=== PATIENT | male | born 1965 | race Hispanic/Latino ===

== ENCOUNTER 2020-06-25 17:49 | Inpatient (IN) | payer OTHER ==
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
--- OUTSIDE RECORDS SUMMARY | 2020-06-25 17:52 | XMS REPORT | Continuity of Care Document ---
:1965 Author Organization [facility] t Address [address] [place] [address] Care Team Providers Name Role Phone Unavailable Unavailable Unavailable Problems This patient has no known problems. Allergies, Adverse Reactions, Alerts This patient has no known allergies or adverse reactions. Medications Ordered Filled Start Stop Current Ordering Indication Dosage Frequency Signature Comments Components Source Medication Medication Date Date Medication? Clinician (SIG) Name Name Rebecca Fernandez 2020- No Dhiraj Inject 0.[address] [facility] 02-12 Rai mg/day x 1 [facility] then [facility] 00 :00 1.2 l mg/day. Outpati Max 1.8 ent mg/day Clinics Hydrocortis Hydrocortis 2019- No Dhiraj [address] [facility] one one 02-12 Rai applicatio [facility] :[facility] ent Clinics Ketoconazol Ketoconazol 2020- No Dhiraj [address] [facility] e e 02-12 Rai applicatio [facility] 00 :00 l Out[facility] ent Clinics Stacy Stacy Yes Dhiraj USE ONE [facility] Contour Contour Rai STRIP TO [facility] - Next Test Next Test CHECK Mike lelo GLUCOSE l THREE Outpati TIMES ent DAILY Clinics Lovastatin Lovastatin Yes Dhiraj [address] [facility] Rai with the [facility] - evening [facility] meal l Outpati ent Clinics Losartan Losartan Yes Dhiraj [address] Potassium Potassium Rai Lu s [facility] l [facility] GlipiZIDE GlipiZIDE Yes Dhiraj [address] [facility] Rai 30 minutes [facility] l [facility] MetFORMIN MetFORMIN Yes Dhiraj [address] [facility] HCl ER HCl ER Rai with meal [facility] Procedures This patient has no known procedures. Encounters Start End Encounter Admission Attending Care Care Encounter Source Date/Time Date/Time Type Type Clinicians Facility Department ID 2020-05-17 2020-05-17 Outpatient [facility] [id number] [facility] 2020-02-13 2020-02-13 [facility] [id number] [facility] 09:45[facility]00 09:45:00 [facility] Medicine Outpati ent Clinics 2020-01-12 2020-01-12 [facility] [id number] [facility] 10:13:00 10:13:00 [facility] Medicine Outpati ent Clinics 2019-10-27 2019-10-27 [facility] [id number] [facility] 11:00:00 11:00:00 [facility] Medicine Outpati ent Clinics 2019-10-23 2019-10-23 [facility] [id number] [address] 16:50:00 16:50:00 [facility] Medicine Outpati ent Clinics 2018-02-01 2018-02-01 [facility] [id number] 09:00:00 09:00:00 [facility] Medicine Outpati ent Clinics Results This patient has no known results.
[2020-06-25 18:22] VITALS: BMI 38.4
[2020-06-25] MEDS ORDERED: ONDANSETRON 4 MG/2 ML VIAL IV PRN (19:40)
[2020-06-25] MEDS: INSULIN -REGULAR HUMAN 50 UNIT/0.5 ML ML SQ SCH (21:00)
[2020-06-25] MEDS: NA CHLORIDE 0.9% 1,000 ML IV SCH (22:03)
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
[2020-06-26] MEDS: MORPHINE 2 MG/ML SYR IV PRN ×2 (00:44→09:29)
[2020-06-26 05:12] LABS: Absolute Lymphocytes (CBC) 1.9 K/uL (0.7-4.9); Basophils % 0.3 % (0-1.3); Hematocrit 38.2 % (39.6-49.0); Lymphocytes % 27.5 % (15.3-44.8); MPV 8.2 fL (7.6-11.3); RBC Red Blood Cell Count 4.61 M/uL (4.33-5.43)
[2020-06-26 05:40] LABS: Magnesium 1.8 mg/dL (1.8-2.4); Potassium 4.3 mmol/L (3.5-5.1); Thyroid Stimulating Hormone 2.26 uIU/mL (0.360-3.740)
[2020-06-26] MEDS ORDERED: MAGNESIUM SULFATE 1 gm IVPB 1 GM/100 ML BAG IV ONE (06:37)
[2020-06-26] MEDS: NA CHLORIDE 0.9% 1,000 ML IV SCH ×2 (06:51→16:13)
[2020-06-26] MEDS: INSULIN -REGULAR HUMAN 50 UNIT/0.5 ML ML SQ SCH ×4 (07:30→21:00)
[2020-06-26 10:39] LABS: Urine Appearance CLEAR; Urine Bilirubin NEGATIVE (NEG); Urine Blood NEGATIVE (NEG); Urine Color YELLOW; Urine Glucose TRACE (NEG); Urine Protein 1+ (NEG); Urine Specific Gravity >=1.030 (1.005-1.030)
[2020-06-26 11:20] LABS: Urine Bacteria NONE SEEN /HPF (NONE SEEN); Urine Microscopic Reflex ORDER UMIC; Urine RBC NONE SEEN /HPF (NONE SEEN)
[2020-06-26 11:21] LABS: Urine Mucus 2+ /HPF (NONE SEEN)
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
[2020-06-26] MEDS ORDERED: HYDROCODONE/APAP 7.5/325 MG TAB PO PRN (11:34)
[2020-06-26] MEDS ORDERED: TRAMADOL HCL 50 MG TAB PO PRN (11:34)
[2020-06-26] MEDS: LOSARTAN POTASSIUM 50 MG TABLET PO SCH (16:54)
[2020-06-26] MEDS ORDERED: LOSARTAN POTASSIUM 50 MG TABLET PO SCH (21:00)
[2020-06-26] MEDS ORDERED: HOME MED 1 EA UNK (Glipizide [Glipizide] 10 MG Tablet) PO SCH (21:00)
[2020-06-26] MEDS: METFORMIN HCL 500 MG TAB PO SCH (21:00)
[2020-06-26] MEDS ORDERED: HOME MED 1 EA UNK (Lovastatin [Lovastatin] 40 MG Tablet) PO SCH (21:00)
[2020-06-26] MEDS: ATORVASTATIN 20 MG TAB PO SCH (21:37)
[2020-06-26] MEDS: glipiZIDE 5 MG TAB PO SCH (21:37)
[2020-06-26] MEDS: PIPER/TAZO/NS 3.375gm 3.375 GM/100 ML BAG IVPB SCH (21:41)
[2020-06-27] MEDS: NA CHLORIDE 0.9% 1,000 ML IV SCH ×3 (02:58→20:21)
[2020-06-27] MEDS: PIPER/TAZO/NS 3.375gm 3.375 GM/100 ML BAG IVPB SCH ×3 (05:36→21:43)
[2020-06-27 06:30] LABS: Magnesium 1.8 mg/dL (1.8-2.4); Potassium 3.8 mmol/L (3.5-5.1)
[2020-06-27] MEDS ORDERED: MAGNESIUM SULFATE 1 gm IVPB 1 GM/100 ML BAG IV ONE (06:33)
[2020-06-27] MEDS: INSULIN -REGULAR HUMAN 50 UNIT/0.5 ML ML SQ SCH ×5 (07:30→20:20)
[2020-06-27] MEDS: glipiZIDE 5 MG TAB PO SCH ×2 (08:34→20:09)
[2020-06-27] MEDS: ASPIRIN EC 81 MG TAB PO SCH (08:34)
[2020-06-27] MEDS: FOLIC ACID 1 MG TABLET PO SCH (08:35)
[2020-06-27] MEDS: LOSARTAN POTASSIUM 50 MG TABLET PO SCH ×2 (08:35→20:09)
[2020-06-27] MEDS: METFORMIN HCL 500 MG TAB PO SCH ×2 (08:36→20:10)
[2020-06-27] MEDS: COLLAGENASE 30 GM OINTMENT TOP SCH (08:36)
[2020-06-27] MEDS ORDERED: POTASSIUM CL SA 10 MEQ TAB PO ONE (09:00)
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
[2020-06-27] MEDS: ATORVASTATIN 20 MG TAB PO SCH (20:09)
[2020-06-28 04:17] LABS: Magnesium 1.9 mg/dL (1.8-2.4); Potassium 4.1 mmol/L (3.5-5.1)
[2020-06-28] MEDS: PIPER/TAZO/NS 3.375gm 3.375 GM/100 ML BAG IVPB SCH ×3 (05:29→22:38)
[2020-06-28] MEDS: NA CHLORIDE 0.9% 1,000 ML IV SCH ×3 (05:30→14:10)
[2020-06-28] MEDS: INSULIN -REGULAR HUMAN 50 UNIT/0.5 ML ML SQ SCH ×4 (07:30→21:00)
[2020-06-28] MEDS: METFORMIN HCL 500 MG TAB PO SCH ×2 (08:21→22:31)
[2020-06-28] MEDS: glipiZIDE 5 MG TAB PO SCH ×2 (08:21→22:31)
[2020-06-28] MEDS: FOLIC ACID 1 MG TABLET PO SCH (08:21)
[2020-06-28] MEDS: ASPIRIN EC 81 MG TAB PO SCH (08:21)
[2020-06-28] MEDS: COLLAGENASE 30 GM OINTMENT TOP SCH (08:22)
[2020-06-28] MEDS: LOSARTAN POTASSIUM 50 MG TABLET PO SCH ×2 (08:22→21:07)
[2020-06-28] MEDS ORDERED: AMLODIPINE 5 MG TAB PO SCH (09:00)
--- NOTE | 2020-06-28 16:10 | P.PN ---
Subjective Date of Service: 06/28/20 Patient has been doing clinically much better. Patient's blood pressure is 180/100. Will go ahead and adjust blood pressure medications at this time. Anticipate discharge home in the morning. Review of Systems 10-point ROS is otherwise unremarkable Physical Examination - Vital Signs Temperature: 97.0 F Blood Pressure: 176/101 Pulse: 72 Respirations: 16 Pulse Ox (%): 96 - Physical Exam General: Alert, In no apparent distress, Oriented x3 Respiratory: Clear to auscultation bilaterally, Normal air movement Cardiovascular: Regular rate/rhythm, Normal S1 S2, No murmurs Gastrointestinal: Soft and benign, Non-distended, No tenderness, No rebound, No guarding Musculoskeletal: No clubbing, No swelling, No tenderness Integumentary: Rash(es), Erythema, Warmth Neurological: Sensation intact, Cranial nerves 3-12 intact - Studies Laboratory Data (last 24 hrs) 06/28/20 03:32: Sodium 142, Potassium 4.1, BUN 12, Creatinine 1.07, Glucose 137 H, Magnesium 1.9 Medications List Reviewed: Yes Assessment & Plan - Problems (Diagnosis) (1) Abdominal wall cellulitis Status: Acute (2) Malignant hypertension Status: Acute (3) DM2 (diabetes mellitus, type 2) Status: Chronic Qualifiers: Diabetes mellitus skilled nursing insulin use: unspecified emt intermediate insulin use status Diabetes mellitus complication status: without complication Qualified Code(s): E11.9 - Type 2 diabetes mellitus without complications (4) Fistula of intestine Status: Chronic (5) Hyperlipidemia Status: Chronic Qualifiers: Hyperlipidemia type: unspecified Qualified Code(s): E78.5 - Hyperlipidemia, unspecified (6) Morbid obesity Status: Chronic - Plan Continue with plan of care as mentioned below. Anticipate discharge home tomorrow. 1. Continue with IV antibiotic 2. Continue with local wound care 3. Outpatient Wound care 4. Hep-Lock IV 5. Monitor CBC 6. Strict blood sugar monitoring 7. Pain control 8. GI and DVT prophylaxis Discharge Plan: Home Plan to discharge in: Greater than 2 days - Advance Directives Does patient have a Living Will: No Does patient have a Durable POA for Healthcare: No - Code Status/Comfort Care Code Status Assessed: Yes Code Status: Full Code Critical Care: No Time Spent Managing PTS Care (In Minutes): 35
[2020-06-28] MEDS: HYDRALAZINE HCL 20 MG/ML VIAL IV PRN (16:44)
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
[2020-06-28] MEDS: HYDRALAZINE HCL 10 MG TABLET PO SCH (21:08)
[2020-06-28] MEDS: ATORVASTATIN 20 MG TAB PO SCH (21:08)
[2020-06-28] MEDS: ACETAMINOPHEN 500 MG TAB PO PRN (22:32)
[2020-06-29 01:32] VITALS: O2SAT 96
[2020-06-29] MEDS: HYDRALAZINE HCL 20 MG/ML VIAL IV PRN (03:34)
[2020-06-29 04:17] LABS: Absolute Lymphocytes (CBC) 2.5 K/uL (0.7-4.9); Basophils % 0.4 % (0-1.3); Hematocrit 41.8 % (39.6-49.0); Lymphocytes % 31.4 % (15.3-44.8); MPV 8.5 fL (7.6-11.3); RBC Red Blood Cell Count 5.01 M/uL (4.33-5.43)
[2020-06-29 04:28] LABS: Magnesium 1.8 mg/dL (1.8-2.4); Potassium 3.7 mmol/L (3.5-5.1)
[2020-06-29] MEDS: PIPER/TAZO/NS 3.375gm 3.375 GM/100 ML BAG IVPB SCH (05:06)
[2020-06-29] MEDS: ACETAMINOPHEN 500 MG TAB PO PRN (05:15)
[2020-06-29] MEDS: INSULIN -REGULAR HUMAN 50 UNIT/0.5 ML ML SQ SCH (07:30)
[2020-06-29] MEDS: LOSARTAN POTASSIUM 50 MG TABLET PO SCH (08:31)
[2020-06-29] MEDS: ASPIRIN EC 81 MG TAB PO SCH (08:31)
[2020-06-29] MEDS: glipiZIDE 5 MG TAB PO SCH (08:32)
[2020-06-29] MEDS: METFORMIN HCL 500 MG TAB PO SCH (08:32)
[2020-06-29] MEDS: FOLIC ACID 1 MG TABLET PO SCH (08:32)
[2020-06-29] MEDS: HYDRALAZINE HCL 10 MG TABLET PO SCH (08:32)
[2020-06-29] MEDS: COLLAGENASE 30 GM OINTMENT TOP SCH (08:33)
[2020-06-29] MEDS ORDERED: POTASSIUM CL SA 10 MEQ TAB PO ONE (09:00)
[2020-06-29] MEDS ORDERED: MAGNESIUM SULFATE 1 gm IVPB 1 GM/100 ML BAG IV ONE (09:00)
[2020-06-29] MEDS ORDERED: AMLODIPINE 10 MG TAB PO SCH (09:00)
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
[2020-07-06 14:24] VITALS: BP 176/101; TEMP 97
== END 2020-06-29 10:20 | disposition home or self-care (01) | DRG 603 ==
LOC: 2ND 17:49 → OBSVTOIN 19:14
PROVIDERS: ADMIT Family Medicine; ATTEND Hospitalist
DX: L03.311 Cellulitis of abdominal wall (principal); K63.2 Fistula of intestine; E11.9 Type 2 diabetes mellitus without complications; E78.5 Hyperlipidemia, unspecified; I10 Essential (primary) hypertension; E66.01 Morbid (severe) obesity due to excess calories; Z68.38 Body mass index [BMI] 38.0-38.9, adult; Z87.891 Personal history of nicotine dependence; Z79.84 Long term (current) use of oral hypoglycemic drugs; Z79.899 Other long term (current) drug therapy
CPT/HCPCS: 36415; 80048; 81003; 81015; 82947; 83036; 83735; 84439; 84443; 85025; J0360; J2270; J2543; J3475; J3590; J7030

== ENCOUNTER 2021-09-11 23:40 | Emergency (ER) | payer OTHER ==
--- OUTSIDE RECORDS SUMMARY | 2021-09-11 23:45 | XMS REPORT | Continuity of Care Document ---
:1965 Author Organization [facility] t Address [address] [place] [address] Care Team Providers Name Role Phone BEL RAI Primary Care Physician Unavailable Yesica Rai Attending Clinician Unavailable SUNNY Attending Clinician Unavailable Sean Alfaro MD Attending Clinician Sean ALFARO Attending Clinician Unavailable JEFF ALFARO Attending Clinician Unavailable POOJA Attending Clinician Unavailable Sunny GOULD Attending Clinician SUNNY Admitting Clinician Unavailable JEFF ALFARO Admitting Clinician Unavailable Payers Payer Name Policy Type Policy Number Effective Date Expiration Date S johan CIGNA HMOPOS SELECT [id number] 2020 PRETP 00:00:00 TOTALCARE SNP [id number] MEDICARE HMO-CIGNA MEDICARE PART A \\T\\ [id number] B - MEDICARE CIGNA [facility] [id number] 2020 HMO 00:00:00 Problems Condition Condition Condition Status Onset Resolution Last Treating Co mments Source Name Details Category Date Date Treatment Clinician Date Type 2 Type 2 Disease Active 2020-07 [facility] [place] diabetes diabetes 2-16 Colleg e mellitus, mellitus, 00:00: of without without 00 Medicin long-term long-term e current current use of use of insulin insulin Hypertensi Hypertensi Disease Active 2020-07 [facility] on due to on due to 2-16 Sun ege endocrine endocrine 00:00: of disorder disorder 00 Medici n e Essential Essential Disease Active [facility] hypertensi hypertensi 8-10 Co llege on on 00:00: of 00 Medicin e Dyspnea on Dyspnea on Disease Active [facility] exertion exertion 8-10 Colleg e 00:00: of 00 Medicin e Nonspecifi Nonspecifi Disease Active [facility] c abnormal c abnormal 8-10 Co llege electrocar electrocar 00:00: of diogram diogram 00 Medicin (ECG) (ECG) e (EKG) (EKG) Abnormal Abnormal Disease Active [facility] r stress stress 24 College test test 00:00: of 00 Medicin e 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 [place] hernia hernia 11-11 College without without 00:00: of obstructio obstructio 00 Me dicin n or n or e gangrene gangrene Class 2 Class 2 Disease Active [facility] [place] obesity obesity 11-11 College with body with body 00:00: of mass index mass index 00 Me dicin (BMI) of (BMI) of e 38.0 to 38.0 to 38.9 in 38.9 in adult adult Allergies, Adverse Reactions, Alerts Allergy Allergy Status Severity Reaction(s) Onset Inactive Treating Comm ents Source Name Type Date Date Clinician NO KNOWN Allergy Active [facility] Social History Social Habit Start Date Stop Date Quantity Comments Source Exposure to Not sure [facility] [place] Adriana dunbar SARS-CoV-2 of Medicine (event) Alcohol intake 2021-08-18 2021-08-18 Ex-drinker [facility] [place] Col lege 00:00:00 00:00:00 (finding) of Medicine Tobacco use and 2020-11-11 2020-11-11 Smokeless tobacco Ba [facility] [employer] exposure 00:00:00 00:00:00 non-user of Medicine Sex Ass[birth year] At [birth year] M [facility] [place] Co llege 00:00:00 00:00:00 of Medicine Smoking Status Start Date Stop Date Source Never smoked tobacco [facility] [place] Sun ege of Medicine Medications Ordered Filled Start Stop Current Ordering Indication Dosage Frequency Signature Comments Components Source Medication Medication Date Date Medication? Clinician (SIG) Name Name metformin Yes 2 tablet [facility] (GLUCOPHAGE 2-03 with meal Col lege -XR) 500 MG 12:41: of XR tablet 08 Medicin e Nutritional 2020-07 Yes 1{can} Take 1 Can [facility] [place] Supplements 1-18 by mouth 2 Co llege (CHENG) 00:00: times of PACK 00 daily Medicin (with e meals). With or without meals Nutritional 2020-07 Yes 1{can} Take 1 Can [facility] Supplements 1-18 by mouth 2 Co llege (CHENG) 00:00: times of PACK 00 daily Medicin (with e meals). With or without meals Nutritional 2020-07- No 1{can} Take 1 Can [facility] [place] Supplements 1-18 02-03 by mouth 2 C ollege (CHENG) 00:00: 00:00 times of PACK 00 :00 daily Medicin (with e meals). With or without meals Na 2020- No 177mL Take 177 [facility] Sulfate-K 9-29 11-18 mL by College Sulfate-Mg 00:00: 00:00 mouth See o f Sulf 00 :00 Admin Medicin (SUPREP Instructio e BOWEL PREP ns. Drink KIT) one bottle 17.5-3.13-1 at 6pm the .6 GM/177ML day before SOLN the procedure and drink the second bottle 4 hours before you leave your home for the procedure amoxicillin Yes TAKE 1 [facility] (AMOXIL) 6-14 CAPSULE BY Colle ge 500 mg 00:00: MOUTH of capsule 00 EVERY 6 Medicin HOURS e UNTIL ALL TAKEN amoxicillin Yes TAKE 1 [facility] (AMOXIL) 6-14 CAPSULE BY Colle ge 500 mg 00:00: MOUTH of capsule 00 EVERY 6 Medicin HOURS e UNTIL ALL TAKEN VICTOZA 18 2021-0 Yes INJECT [facility] r MG/3ML SOPN 4-13 0.6MG College 00:00: UNDER THE of 00 SKIN DAILY Medicin FOR ONE e WEEK THEN 1.2MG DAILY DIRECTED (MAX OF 1.8MG ONCE A DAY) VICTOZA 18 Yes INJECT Baylo r MG/3ML SOPN 4-13 0.6MG College 00:00: UNDER THE of 00 SKIN DAILY Medicin FOR ONE e WEEK THEN 1.2MG DAILY DIRECTED (MAX OF 1.8MG ONCE A DAY) VICTOZA 18 2020- No INJECT [facility]l or MG/3ML SOPN 4-13 11-18 0.6MG Colleg e 00:00: 00:00 UNDER THE of 00 :00 SKIN DAILY Medicin FOR ONE e WEEK THEN 1.2MG DAILY DIRECTED (MAX OF 1.8MG ONCE A DAY) glipiZIDE Yes TAKE 1 [facility] (GLUCOTROL) 4-01 TABLET BY Col lege 10 MG 00:00: MOUTH of tablet 00 TWICE Medicin DAILY 30 e MINUTES BEFORE BREAKFAST glipiZIDE Yes TAKE 1 [facility] (GLUCOTROL) 4-01 TABLET BY Col lege 10 MG 00:00: MOUTH of tablet 00 TWICE Medicin DAILY 30 e MINUTES BEFORE BREAKFAST glipiZIDE Yes TAKE 1 [facility] (GLUCOTROL) 4-01 TABLET BY Col lege 10 MG 00:00: MOUTH of tablet 00 TWICE Medicin DAILY 30 e MINUTES BEFORE BREAKFAST glipiZIDE Yes TAKE 1 [facility] [place] (GLUCOTROL) 4-01 TABLET BY Col lege 10 MG 00:00: MOUTH of tablet 00 TWICE Medicin DAILY 30 e MINUTES BEFORE BREAKFAST glipiZIDE Yes TAKE 1 [facility] (GLUCOTROL) 4-01 TABLET BY Col lege 10 MG 00:00: MOUTH of tablet 00 TWICE Medicin DAILY 30 e MINUTES BEFORE BREAKFAST metformin Yes TAKE 2 [facility] (GLUCOPHAGE 3-10 TABLETS BY Co llege -XR) 500 MG 00:00: MOUTH of XR tablet 00 TWICE Medicin DAILY WITH e MEALS metformin Yes TAKE 2 [facility] [place] (GLUCOPHAGE 3-10 TABLETS BY Co llege -XR) 500 MG 00:00: MOUTH of XR tablet 00 TWICE Medicin DAILY WITH e MEALS metformin Yes TAKE 2 [facility] (GLUCOPHAGE 3-10 TABLETS BY Co llege -XR) 500 MG 00:00: MOUTH of XR tablet 00 TWICE Medicin DAILY WITH e MEALS metformin Yes TAKE 2 [facility] (GLUCOPHAGE 3-10 TABLETS BY Co llege -XR) 500 MG 00:00: MOUTH of XR tablet 00 TWICE Medicin DAILY WITH e MEALS metformin 2021- No TAKE 2 [facility] (GLUCOPHAGE 3-10 02-03 TABLETS BY Cris ivory -XR) 500 MG 00:00: 00:00 MOUTH of XR tablet 00 :00 TWICE Medicin DAILY WITH e MEALS losartan Yes TAKE 1 [facility] (COZAAR) 2-13 TABLET BY Colleg e 100 MG 00:00: MOUTH ONCE of tablet 00 DAILY Medicin e losartan Yes TAKE 1 [facility] [place] (COZAAR) 2-13 TABLET BY Colleg e 100 MG 00:00: MOUTH ONCE of tablet 00 DAILY Medicin e losartan Yes TAKE 1 [facility] (COZAAR) 2-13 TABLET BY Colleg e 100 MG 00:00: MOUTH ONCE of tablet 00 DAILY Medicin e losartan Yes TAKE 1 [facility] (COZAAR) 2-13 TABLET BY Colleg e 100 MG 00:00: MOUTH ONCE of tablet 00 DAILY Medicin e losartan Yes TAKE 1 [facility] [place] (COZAAR) 2-13 TABLET BY Colleg e 100 MG 00:00: MOUTH ONCE of tablet 00 DAILY Medicin e lovastatin Yes TAKE 1 [facility] (MEVACOR) 2-12 TABLET BY Colle ge 40 MG 00:00: MOUTH ONCE of tablet 00 DAILY WITH Medicin EVENING e MEAL FOR 90 DAYS lovastatin Yes TAKE 1 [facility] (MEVACOR) 2-12 TABLET BY Colle ge 40 MG 00:00: MOUTH ONCE of tablet 00 DAILY WITH Medicin EVENING e MEAL FOR 90 DAYS lovastatin Yes TAKE 1 [facility] (MEVACOR) 2-12 TABLET BY Colle ge 40 MG 00:00: MOUTH ONCE of tablet 00 DAILY WITH Medicin EVENING e MEAL FOR 90 DAYS lovastatin Yes TAKE 1 [facility] (MEVACOR) 2-12 TABLET BY Colle ge 40 MG 00:00: MOUTH ONCE of tablet 00 DAILY WITH Medicin EVENING e MEAL FOR 90 DAYS lovastatin Yes TAKE 1 [facility] (MEVACOR) 2-12 TABLET BY Shin ge 40 MG 00:00: MOUTH ONCE of tablet 00 DAILY WITH Medicin EVENING e MEAL FOR 90 DAYS Victoza Victoza 2019- No Bel Inject 0.[address] [facility] [facility] 02-12 10-29 Rai mg/day x 1 [facility]00 week then [facility] 00 :00 1.2 l mg/day. Outpati Max 1.8 ent mg/day Clinics Hydrocortis Hydrocortis 2019- No Bel [address] [facility] [facility] one one 02-12 Rai applicatio [facility] 00:[facility] 00:00 n [facility] 00 :00 [facility] Clin[facility] Ketoconazol Ketoconazol 2019- No Bel [address] [facility] e e 02-12 Rai applicatio [facility] - 00:[facility]: 00:00 n [facility] 00 :00 l Outpati ent Clinics Stacy Stacy Yes Bel USE ONE [facility] Contour Contour Rai STRIP TO [facility] s - Next Test Next Test CHECK Mike lelo GLUCOSE l THREE Outpati TIMES ent DAILY Clinics Lovastatin Lovastatin Yes Bel [address] Rai with the [facility] - evening [facility] meal l Outpati ent Clinics Losartan Losartan Yes Bel [address] Potassium Potassium Rai [facility] - [facility] Outpati ent Clinics GlipiZIDE GlipiZIDE Yes Bel [address] [facility] Rai 30 minutes [facility] - before Memoria breakfast l Outpati ent Clinics MetFORMIN MetFORMIN Yes Bel [address] HCl ER HCl ER Rai with meal [facility] Immunizations Ordered Immunization Filled Immunization Date Status Commen ts Source Name Name Moderna SARS-CoV-2 2020-11-02 Completed [facility] Vaccination 00:00:00 of Medicine Moderna SARS-CoV-2 2020-11-02 Completed [facility] Vaccination 00:00:00 of Medicine Moderna SARS-CoV-2 2020-09-29 Completed [facility] Vaccination 00:00:00 of Medicine Moderna SARS-CoV-2 2020-09-29 Completed [facility] Vaccination 00:00:00 of Medicine Vital Signs Vital Name Observation Time Observation Value Comments Source HEIGHT 2021-04-15 14:15:00 175.3 cm WEIGHT 2021-04-15 14:15:00 113.9 kg HEIGHT 2021-04-12 10:44:00 175.3 cm WEIGHT 2021-04-12 10:44:00 113.399 kg Systolic blood 2021-08-18 18:41:00 156 mm[Hg] [facility] pressure Medicine Diastolic blood 2021-08-18 18:41:00 112 mm[Hg] [facility] pressure Medicine Heart rate 2021-08-18 18:41:00 86 /min [facility] [place] [facility]lege of Medicine Body height 2021-08-18 18:41:00 175.3 cm [facility] [place] [facility] of Medicine Body weight 2021-08-18 18:41:00 119.296 kg [facility] [place] C [facility] of Medicine BMI 2021-08-18 18:41:00 38.84 kg/m2 [facility] ollege of Medicine Systolic blood 2021-06-30 16:25:00 150 mm[Hg] [facility] of pressure Medicine Diastolic blood 2021-06-30 16:25:00 96 mm[Hg] [facility] Medicine Heart rate 2021-06-30 16:25:00 75 /min [facility] [place] C [facility]lege of Medicine Body height 2021-06-30 16:25:00 175.3 cm [facility] [place] C [facility] of Medicine Body weight 2021-06-30 16:25:00 119.296 kg [facility] [place] C [facility] of Medicine BMI 2021-06-30 16:25:00 38.84 kg/m2 [facility] [place] C [facility] of Medicine HEIGHT 2021-06-14 10:05:00 175.3 cm WEIGHT 2021-06-14 10:05:00 113.3 kg HEIGHT 2021-06-13 11:42:00 175.3 cm WEIGHT 2021-06-13 11:42:00 113.399 kg HEIGHT 2021-06-14 10:05:00 175.3 cm WEIGHT 2021-06-14 10:05:00 113.3 kg HEIGHT 2021-06-13 11:42:00 175.3 cm WEIGHT 2021-06-13 11:42:00 113.399 kg Systolic blood 2021-06-02 15:05:00 156 mm[Hg] [facility] pressure Medicine Diastolic blood 2021-06-02 15:05:00 102 mm[Hg] [facility] Medicine Heart rate 2021-06-02 15:05:00 80 /min [facility] ollege of Medicine Respiratory rate 2021-06-02 15:05:00 16 /min [facility] Body height 2021-06-02 15:05:00 175.3 cm [facility] [place] [facility]lege of Medicine Body weight 2021-06-02 15:05:00 119.296 kg [facility] [place] C [facility] of Medicine BMI 2021-06-02 15:05:00 38.84 kg/m2 [facility] [place] C [facility] of Medicine HEIGHT 2021-04-15 14:15:00 175.3 cm WEIGHT 2021-04-15 14:15:00 113.9 kg HEIGHT 2021-04-12 10:44:00 175.3 cm WEIGHT 2021-04-12 10:44:00 113.399 kg Systolic blood 2021-01-24 19:43:00 113 mm[Hg] [facility] pressure Medicine Diastolic blood 2021-01-24 19:43:00 81 mm[Hg] [facility] Medicine Heart rate 2021-01-24 19:43:00 86 /min [facility] ollege of Medicine Body temperature 2021-01-24 19:43:00 36.61 [facility] Body height 2021-01-24 19:43:00 175.3 cm [facility] [place] [facility] of Medicine Body weight 2021-01-24 19:43:00 115.577 kg [facility] ollege of Medicine BMI 2021-01-24 19:43:00 37.63 kg/m2 [facility] ollege of Medicine Systolic blood 2021-01-06 16:27:00 123 mm[Hg] [facility] pressure Medicine Diastolic blood 2021-01-06 16:27:00 88 mm[Hg] [facility] pressure Medicine Heart rate 2021-01-06 16:27:00 89 /min [facility] [place] C [facility] of Medicine Body height 2021-01-06 16:27:00 175.3 cm [facility] ollege of Medicine Body weight 2021-01-06 16:27:[facility] 2021-01-06 16:27:00 38.25 [facility] Procedure Date / Time Performed Performing Clinician Nathen dunbar HEMOGLOBIN A1C 2021-06-02 16:17:00 Gabeloretta Grace [facility] Planned Activity Planned Date Details Comments Source Future Scheduled 2021-08-29 Screening for malignant [facility] Test 09:47:48 neoplasm of colon Medicine (procedure) [code = 893121143] Future Scheduled 2021-08-29 Pneumococcal Combined (1 [facility] Test 09:47:48 of 2 - PPSV23) [code = Medic ine Pneumococcal Combined (1 of 2 - PPSV23)] Future Scheduled 2021-08-29 TETANUS SHOT (ADULT) [facility] Test 09:47:48 [code = TETANUS SHOT Medicin e (ADULT)] Future Scheduled 2021-08-29 Diabetic foot examination [facility] 09:47:48 (regime/therapy) [code = Med icine [id number]] Future Scheduled 2021-08-29 ANNUAL DIABETIC [facility] Test 09:47:48 RETINOPATHY SCREENING Medici ne [code = ANNUAL DIABETIC RETINOPATHY SCREENING] Future Scheduled 2021-08-29 Hepatitis C screening [facility] 09:47:48 (procedure) [code = Medicine [id number]] Future Scheduled 2021-08-29 Human immunodeficiency [facility] 09:47:48 virus screening Medicine (procedure) [code = 960243898] Future Scheduled 2021-08-29 ZOSTER VACCINE (1 of 2) [facility] 09:47:48 [code = ZOSTER VACCINE (1 Me dicine of 2)] Future Scheduled 2021-08-29 FLU VACCINE > 6 MONTHS B [facility] Test 09:47:48 [code = FLU VACCINE > 6 Medi cine MONTHS] Future Scheduled 2021-08-29 COVID-19 Vaccine (3 - Ba [facility] 09:47:48 Booster for Moderna Medicine series) [code = COVID-19 Vaccine (3 - Booster for Moderna series)] Future Scheduled 2021-08-29 MEDICARE AWV (Initial) B [facility] Test 09:47:48 [code = MEDICARE AWV Medicin e (Initial)] Future Scheduled 2021-08-29 BMI FOLLOW UP PLAN [code [facility] of Test 09:47:48 = BMI FOLLOW UP PLAN] Medici ne Future Scheduled 2021-06-30 BMI FOLLOW UP PLAN [code [facility] of Test 10:35:03 = BMI FOLLOW UP PLAN] Medici ne Future Scheduled 2021-06-30 Screening for malignant [facility] of Test 10:25:26 neoplasm of colon Medicine (procedure) [code = 090923102] Future Scheduled 2021-06-30 TETANUS SHOT (ADULT) [facility] Test 10:25:26 [code = TETANUS SHOT Medicin e (ADULT)] Future Scheduled 2021-06-30 Diabetic foot examination [facility] Test 10:25:26 (regime/therapy) [code = Med icine [id number]] Future Scheduled 2021-06-30 ANNUAL [facility] 10:25:26 RETINOPATHY SCREENING Medici ne [code = ANNUAL DIABETIC RETINOPATHY SCREENING] Future Scheduled 2021-06-30 Hepatitis C screening [facility] Test 10:25:26 (procedure) [code = Medicine [id number]] Future Scheduled 2021-06-30 Human immunodeficiency B [facility] Test 10:25:26 virus screening Medicine (procedure) [code = 456919228] Future Scheduled 2021-06-30 ZOSTER VACCINE (1 of 2) [facility] Test 10:25:26 [code = ZOSTER VACCINE (1 Me dicine of 2)] Future Scheduled 2021-06-30 FLU VACCINE > 6 MONTHS B [facility] of Test 10:25:26 [code = FLU VACCINE > 6 Medi cine MONTHS] Future Scheduled 2021-06-30 COVID-19 Vaccine (3 - Ba [facility] Test 10:25:26 Booster for Moderna Medicine series) [code = COVID-19 Vaccine (3 - Booster for Moderna series)] Future Scheduled 2021-06-30 MEDICARE AWV (Initial) B [facility] Test 10:25:26 [code = MEDICARE AWV Medicin e (Initial)] Future Scheduled 2021-06-12 BMI FOLLOW UP PLAN [code [facility] of Test 21:06:26 = BMI FOLLOW UP PLAN] Medici ne Future Scheduled 2021-06-12 Screening for malignant [facility] Test 21::26 neoplasm of colon Medicine (procedure) [code = 508126962] Future Scheduled 2021-06-12 TETANUS SHOT (ADULT) [facility] Test :: [code = TETANUS SHOT Medicin e (ADULT)] Future Scheduled 2021-06-12 Diabetic foot examination [facility] :: (regime/therapy) [code = Med icine [id number]] Future Scheduled 2021-06-12 ANNUAL DIABETIC [facility] [place] C olle of Test :: RETINOPATHY SCREENING Medici ne [code = ANNUAL DIABETIC RETINOPATHY SCREENING] Future Scheduled 2021-06-12 Hepatitis C screening [facility] :: (procedure) [code = Medicine [id number]] Future Scheduled 2021-06-12 Human immunodeficiency [facility] :: virus screening Medicine (procedure) [code = 035347102] Future Scheduled 2021-06-12 ZOSTER VACCINE (1 of 2) [facility] :: [code = ZOSTER VACCINE (1 Me dicine of 2)] Future Scheduled 2021-06-12 FLU VACCINE > 6 MONTHS B [facility] Test :: [code = FLU VACCINE > 6 Medi cine MONTHS] Future Scheduled 2021-06-12 COVID-19 Vaccine (3 - Ba [facility] :: Booster for Moderna Medicine series) [code = COVID-19 Vaccine (3 - Booster for Moderna series)] Future Scheduled 2021-06-12 MEDICARE AWV (Initial) [facility] :: [code = MEDICARE AWV Medicin e (Initial)] Future Scheduled 2021-01-25 Screening for malignant [facility] Test 16:48:09 neoplasm of colon Medicine (procedure) [code = 630148314] Future Scheduled 2021-01-25 COVID-19 Vaccine (1) [facility] Test 16:48:09 [code = COVID-19 Vaccine Med icine (1)] Future Scheduled 2021-01-25 TETANUS SHOT (ADULT) [facility] Test 16:48:09 [code = TETANUS SHOT Medicin e (ADULT)] Future Scheduled 2021-01-25 Hepatitis C screening [facility] Test 16:48:09 (procedure) [code = Medicine 054722179] Future Scheduled 2021-01-25 Human immunodeficiency B [facility] of Test 16:48:09 virus screening Medicine (procedure) [code = 089996206] Future Scheduled 2021-01-25 ZOSTER VACCINE (1 of 2) [facility] of Test 16:48:09 [code = ZOSTER VACCINE (1 Me dicine of 2)] Future Scheduled 2021-01-25 MEDICARE AWV (Initial) B [facility] of Test 16:48:09 [code = MEDICARE AWV Medicin e (Initial)] Future Scheduled 2021-01-25 FLU VACCINE > 6 MONTHS B [facility] of Test 16:48:09 [code = FLU VACCINE > 6 Medi cine MONTHS] Future Scheduled 2021-01-25 BMI FOLLOW UP PLAN [code [facility] of Test 16:48:09 = BMI FOLLOW UP PLAN] Medici ne Future Scheduled 2021-01-19 Screening for malignant [facility] Test 14:46:06 neoplasm of colon Medicine (procedure) [code = 385192963] Future Scheduled 2021-01-19 COVID-19 Vaccine (1) [facility] Test 14:46:06 [code = COVID-19 Vaccine Med icine (1)] Future Scheduled 2021-01-19 TETANUS SHOT (ADULT) [facility] of Test 14:46:06 [code = TETANUS SHOT Medicin e (ADULT)] Future Scheduled 2021-01-19 Hepatitis C screening [facility] Test 14:46:06 (procedure) [code = Medicine [id number]] Future Scheduled 2021-01-19 Human immunodeficiency B [facility] of Test 14:46:06 virus screening Medicine (procedure) [code = 746547274] Future Scheduled 2021-01-19 ZOSTER VACCINE (1 of 2) [facility] of Test 14:46:06 [code = ZOSTER VACCINE (1 Me dicine of 2)] Future Scheduled 2021-01-19 MEDICARE IPPE (WELCOME TO [facility] of Test 14:46:06 MEDICARE) [code = Medicine MEDICARE IPPE (WELCOME TO MEDICARE)] Future Scheduled 2021-01-19 FLU VACCINE > 6 MONTHS B [facility] of Test 14:46:06 [code = FLU VACCINE > 6 Medi cine MONTHS] Future Scheduled 2021-01-19 [facility] PLAN [facility] 14[facility]46[facility] = BMI FOLLOW UP PLAN] Medici ne Encounters Start End Encounter Admission Attending Care Care Encounter Source Date/Time Date/Time Type Type Clinicians Facility Department ID 2021-08-17 Outpatient Rai, [facility] 12:[facility]00 [facility] 2021-08-10 Outpatient Rai, [facility] 14:15:45 [facility] [id number] [facility] 2021-08-10 Outpatient Rai, [facility] 14:08:22 Bel [id number] [facility] 2021-08-10 Outpatient Rai, [facility] 14:01:17 Bel [id number] [facility] 2021-08-10 Outpatient Rai, [facility] 13:54:13 Bel [id number] [facility] 2021-08-10 Outpatient Rai, [facility] 13:53:56 Bel [id number] [facility] 2021-08-10 Outpatient Rai, [facility] 13:48:07 Bel [id number] [facility] 2021-08-10 Outpatient Rai, [facility] 13:47:10 Bel [id number] [facility] 2021-08-10 Outpatient Rai, [facility] 13:45:16 Bel [id number] [facility] 2021-08-10 Outpatient Rai, [facility] 13:44:17 Bel [id number] [facility] 2021-08-10 Outpatient Rai, [facility] 13:34:14 Bel [id number] [facility] 2021-08-10 [facility] 12[facility]26[facility]47 [place] [id number] [facility] 2021-08-10 [facility] 11:[facility]27 [place] [id number] [facility] 2021-08-[facility] 11[facility] [place] [id number] [facility] 2021-08-10 [facility] 11:17:32 [place] [id number] [facility] 2021-08-10 [facility] 11:17:26 [place] [id number] [facility] 2021-04-24 Outpatient [facility] Surgery [id number] [facility] 11:15:13 L, KELLI 2021-08-18 2021-08-18 Office Angelina, BCYesica [id number] [facility] [place] 12:30:00 16:32:23 Visit Rock RobertCaitlin AMBULATOR 350.1.13.21 College Y 0.2.7.2.686 of [id number] [facility] 815 e 2021-08-16 2021-08-16 [facility] [id number] [facility] 2021-08-15 2021-08-15 [facility] [id number] [facility] 2021-06-30 2021-06-30 Office ANGELINA, BCM 1.2.840.114 [id number] [facility] [place] 10:16:32 13:03:36 Visit ROCK AMBULATOR 350.1.13.21 College Y 0.2.7.2.686 of [id number] [facility] 815 e 2021-06-14 2021-06-20 Inpatient EL ANGELINA, [facility] Surgery [id number] [facility] 09:25:00 14:19:00 ROCK 2021-06-13 2021-06-13 Outpatient EL [facility] [id number] [facility] 12:03:32 23:59:00 2021-06-10 2021-06-10 Outpatient [facility] [id number] [facility] 00:00:00 23:59:00 2021-06-02 2021-06-02 Office Angelina, CHRISS 1.2.840.114 [id number] [facility] [place] 09:15:00 14:00:14 Visit Rock Estrada AMBULATOR 350.1.13.21 College Y 0.2.7.2.686 [facility] [id number] [facility] 815 e 2021-05-12 2021-05-12 [facility] [id number] [facility] 2021-04-28 2021-04-28 Outpatient EL [facility] [id number] [facility] 00:00:00 00:00:00 2021-04-13 2021-04-13 Outpatient EL [facility] [id number] [facility] 00:00:00 00:00:00 2021-04-12 2021-04-12 Outpatient EL [facility] [id number] [facility] 00:00:00 00:00:00 2021-04-12 2021-04-12 [facility] [id number] 2021-03-15 2021-03-15 [facility] [id number] [facility] 2021-03-03 2021-03-03 Outpatient [facility] [id number] [facility] [place] 09:46:55 14:23:55 Adriana e of Medicin e 2021-02-22 2021-02-22 Outpatient CHRISS PATTON [id number] [facility] [place] 09:56:07 12:40:53 KEN Wright e of Medicin e 2021-02-21 2021-02-21 Outpatient [facility] [id number] [facility] 2021-02-16 2021-02-16 [facility] [id number] [facility] 2021-02-15 2021-02-15 Outpatient [facility] [id number] [facility] 2021-02-09 2021-02-09 [facility] [id number] [facility] 2021-01-24 2021-01-[address] [facility] 1.2.840.114 [id number] [facility] [place] 14:40:11 15:28:54 Visit edelmira Kellipaul Sanchez 350.1.13.21 College 0.2.7.2.686 of [id number] [facility] temi 510 e 2021-01-20 2021-01-20 Outpatient EL [facility] [id number] [facility] 00:00:00 00:00:00 2021-01-06 2021-01-06 Office CHRISS ALFARO 1.2.840.114 [id number] [facility] [place] 11:18:00 13:02:56 Visit ROCK VARGAS 350.1.13.21 College Y 0.2.7.2.686 of [id number] [facility] temi 815 e 2020-12-14 2020-12-14 Outpatient [facility] [id number] [facility] 2020-11-16 2020-11-16 Outpatient [facility] [id number] [facility] 2020-11-11 2020-11-11 Outpatient CHRISS ALFARO [facility] [id number] [facility] [place] 09:29:36 15:00:44 ROCK dunbar of Medicin e 2020-08-17 2020-08-17 Outpatient [facility] [id number] [facility] 2020-08-17 2020-08-17 Outpatient [facility] [id number] [facility] 2020-07-07 2020-07-07 Outpatient [facility] [id number] [facility] 2020-07-05 2020-07-05 Outpatient [facility] [id number] [facility] 2020-06-25 2020-06-25 Outpatient [facility] [id number] [facility] 2020-05-17 2020-05-17 Outpatient [facility] [id number] [facility] 2020-02-13 2020-02-13 [facility] [id number] 09:45:00 09:45:00 [place] [employer] [facility] Medicine l Medicine Outpati ent Clinics 2020-01-12 2020-01-12 [facility] [id number] 10:13:00 10:13:00 t [place] [facility] [address] [facility] Medicine l Medicine Outpati ent Clinics 2019-10-27 2019-10-27 [facility] [id number] 11:00:00 11:00:00 [place] [employer] [facility] [address] [facility] Medicine l Medicine Outpati ent Clinics 2019-10-23 2019-10-23 [facility] [id number] 16:50:00 16:50:00 t [place] [employer] [address] [facility] [address] [facility] Medicine l Medicine Outpati ent Clinics 2018-02-01 2018-02-01 [facility] [id number] 09:00:00 09:00:00 t [facility] [employer] [facility] Medicine Outpati ent Clinics Results Test Description Test Time Test Comments Results Result [facility] Comments TISSUE EXAM 2021-06-22 Surgical Pathology 10:59:33 Report Case: [id number] Authorizing Provider: Rock Alfaro MD Collected: 06/14/2021 06:14 PM Ordering Location: [facility] PERIOPERATIVE Received: 06/15/2021 09:56 AM SERVICES Pathologist: Eldon Sneed MD Specimen: Soft Tissue, Other, 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 PART A ILEOCOLIC ANASTOMOSIS AND FISTULA, RESECTION:ENTEROCUTANE OUS FISTULA WITH SUBEPITHELIAL FIBROSIS.ILEOCOLONIC ANASTOMOSIS SITE IDENTIFIED.NEGATIVE FOR DYSPLASIA OR INVASIVE CARCINOMA.SURGICAL MARGINS VIABLE. Signing Pathologist Direct Phone Line: [phone] ally signed by Eldon Sneed MD on 06/22/2021 at 10:59 [id number] anastomosis with fistulaIleocolic anastomosis with fistulaA. Received in formalin labeled with the patient's name, MRN and "soft tissue, other" and consists of an ileocolic side to side anastomosis site, with both the large and small bowel with surgical margins and opposing blind pouches. The ileum measures 6 cm in length and 2.5 cm in diameter, with up to 6 cm attached adipose tissue. The colon measures 11.5 cm in length and 3 cm in diameter, with up to 3.5 cm attached adipose tissue. The serosal surfaces are omer-pink, smooth. Opening reveals anastomosis line measuring 5.5 cm in length and located 2.5 cm from the small bowel surgical margin, and 3 cm from the colon surgical margin. The ileum mucosa is omer-pink to omer-brown, with focal thinning and loss of folding measuring 2.5 x 1.5 cm, located 2.5 cm from the surgical margin, and 1 cm from the anastomosis site. The wall thickness for the ileum ranges 0.1 to 0.3 cm. The wall thickness of the colon is 0.4 cm. The remainder of the mucosa for the ileum and colon are omer-pink, smooth, with normal folding. No discrete lesions are identified. Fish Filleter sections are submitted. Also in the container is abdominal wall with attached omer-pink skin (24 x 6 x 5 cm). Skin is remarkable for focal disruption measuring 2 x 1.2 cm, 1 cm from the closest skin margin. The opposing side of the skin is omer-brown, smooth. Sectioning reveals clear suture with surrounding area of necrosis measuring 2 cm in greatest dimension, 0.7 cm from closest skin, 1.2 cm from deep resection margin. There is also another area of necrosis measuring 2.5 cm in greatest dimension, 1.1 cm from deep resection margin and 3.4 cm from skin. The necrotic areas are arbitrarily designated as 1 and 2 respectively. the remainder of the cut surfaces are omer-pink to omer-white. No discrete lesions are identified Section code:A1: Ileum mucosa remarkable for thinning and loss of foldingA2: Ileum EndopouchA3 ileum mucosa, 3 cm from surgical margin, 3.5 cm from anastomosis siteA4: Anastomosis siteA5: colon endpouch pouchA6: Colon mucosa centimeters from the margin 1.5 cm from anastomosis siteA7: Colon mucosa, 6 cm from marginA8: Abdominal wall skin defect A9: necrotic area 1A10: necrotic area 2A11: Colon margin, margin inked blue A12: Ileum margin , margin inked black Martha WHITE Student performedBaK[facility], Department of Pathology, [address] [place] [address], [facility], [facility] of [facility]ology, [address] [place] [address], [facility], Department of Pathology, [address] [place] [address], POCT-GLUCOSE METER 2021-06-20 12:01:05 Test Item Value Reference Range Interpretation Comme nts POC-GLUCOSE METER ([employer]) 192 mg/dL 70-110 H : TESTED AT [address] (test code = 1538) [facility], [id number]: Human Services Case Manager/Techni adeola ID = [id number] for Luli Snowden POCT-GLUCOSE [id number] 07:41:10 Test Item Value Reference Range Interpretation Comments POC-GLUCOSE METER 146 mg/dL 70-110 H : TESTED [place] [address] ([employer]) (test code = PATRICK Brown [facility], 1538) [address]: Human Services Case Manager/Techni adeola ID = [id number] for Yaya Hightower [id number] 05:06:24 Test Item Value Reference Range Interpretation Comments MAGNESIUM (BEAKER) (test code = 1.7 mg/dL 1.6-2.6 627) Human Services Case Manager ID - LEAH [id number] 05:06:24 Test Item Value Reference Range Interpretation Comments PHOSPHORUS (BEAKER) (test code = 3.7 mg/dL 2.3-4.7 604) Human Services Case Manager ID - LEAH MBASIC METABOLIC [id number] 05:06:23 Test Item Value Reference Range Interpretation Comments SODIUM (BEAKER) 142 meq/L 136-145 (test code = 381) POTASSIUM (BEAKER) 3.3 meq/L 3.5-5.1 L (test code = 379) CHLORIDE (BEAKER) 109 meq/L 98-107 H (test code = 382) CO2 (BEAKER) (test 24 meq/L 22-29 code = 355) BLOOD UREA NITROGEN 8 mg/dL 7-21 (BEAKER) (test code = 354) CREATININE (BEAKER) 0.97 mg/dL 0.57-1.25 (test code = 358) GLUCOSE RANDOM 155 mg/dL 70-105 H (BEAKER) (test code = 652) CALCIUM (BEAKER) 8.8 mg/dL 8.4-10.2 (test code = 697) EGFR (BEAKER) (test 80 mL/min/1.73 ESTIMA EKATERINA GFR IS code = 1092) sq m NOT ACCURATE CREATININE CLEARANCE IN PREDICTING GLOMERULAR FILTRATION RATE . ESTIMATED GFR I S NOT APPLICABLE FOR DIALYSIS PATIEN TS. Human Services Case Manager ID - LEAH MCBC W/PLT COUNT & AUTO [id number] 04:40:06 Test Item Value Reference Range Interpretation Comments WHITE BLOOD CELL COUNT (BEAKER) 7.3 K/ L 3.5-10.5 (test code = 775) RED BLOOD CELL COUNT (BEAKER) 3.76 M/ L 4.63-6.08 L (test code = 761) HEMOGLOBIN (BEAKER) (test code = 10.3 GM/DL 13.7-17.5 L 410) HEMATOCRIT (BEAKER) (test code = 32.3 % 40.1-51.0 L 411) MEAN CORPUSCULAR VOLUME (BEAKER) 85.9 fL 79.0-92.2 (test code = 753) MEAN CORPUSCULAR HEMOGLOBIN 27.4 pg 25.7-32.2 (BEAKER) (test code = 751) MEAN CORPUSCULAR HEMOGLOBIN CONC 31.9 GM/DL 32.3-36.5 L (BEAKER) (test code = 752) RED CELL DISTRIBUTION WIDTH 13.1 % 11.6-14.4 (BEAKER) (test code = 412) PLATELET COUNT (BEAKER) (test 260 K/CU MM 150-450 code = 756) MEAN PLATELET VOLUME (BEAKER) 10.5 fL 9.4-12.4 (test code = 754) NUCLEATED RED BLOOD CELLS 0 /100 WBC 0-0 (BEAKER) (test code = 413) NEUTROPHILS RELATIVE PERCENT 70 % (BEAKER) (test code = 429) LYMPHOCYTES RELATIVE PERCENT 21 % (BEAKER) (test code = 430) MONOCYTES RELATIVE PERCENT 5 % (BEAKER) (test code = 431) EOSINOPHILS RELATIVE PERCENT 4 % (BEAKER) (test code = 432) BASOPHILS RELATIVE PERCENT 0 % (BEAKER) (test code = 437) NEUTROPHILS ABSOLUTE COUNT 5.09 K/ L 1.78-5.38 (BEAKER) (test code = 670) LYMPHOCYTES ABSOLUTE COUNT 1.51 K/ L 1.32-3.57 (BEAKER) (test code = 414) MONOCYTES ABSOLUTE COUNT (BEAKER) 0.37 K/ L 0.30-0.82 (test code = 415) EOSINOPHILS ABSOLUTE COUNT 0.26 K/ L 0.04-0.54 (BEAKER) (test code = 416) BASOPHILS ABSOLUTE COUNT (BEAKER) 0.01 K/ L 0.01-0.08 (test code = 417) IMMATURE GRANULOCYTES-RELATIVE 0 % 0-1 PERCENT (BEAKER) (test code = 2801) POCT-GLUCOSE [id number] 21:15:05 Test Item Value Reference Range Interpretation Comments POC-GLUCOSE METER 168 mg/dL 70-110 H : TESTED Aime Jordin [facility] 6720 (BEAKER) (test code = [place], 1538) [address]: Human Services Case Manager/Techni adeola ID = [id number] for SAUNDRA BOSWELLSAVITA PAK POCT-GLUCOSE [id number] 16:58:14 Test Item Value Reference Range Interpretation Comments POC-GLUCOSE METER 121 mg/dL 70-110 H : TESTED A T [facility] 6720 (BEAKER) (test code = [facility], 1538) 09[address]: Human Services Case Manager/Techni adeola ID = [id number] for ADDIS JESUSABEL POCT-GLUCOSE [id number] 12:40:25 Test Item Value Reference Range Interpretation Comments POC-GLUCOSE METER 190 mg/dL 70-110 H : TESTED A T [facility] 6720 (BEAKER) (test code = [facility], 1538) 158[address]: Human Services Case Manager/Techni adeola ID = [id number] for Lanre Suazo POCT-GLUCOSE [id number] 10:13:27 Test Item Value Reference Range Interpretation Comments POC-GLUCOSE METER 177 mg/dL 70-110 H : TESTED A T [facility] 6720 (BEAKER) (test code = [facility], 1538) [address]: Human Services Case Manager/Techni adeola ID = [id number] for Lanre Suazo [id number] 04:01:22 Test Item Value Reference Range Interpretation Comments PHOSPHORUS (BEAKER) (test code = 3.2 mg/dL 2.3-4.7 604) Human Services Case Manager ID - DBBASIC METABOLIC [id number] 04:01:21 Test Item Value Reference Range Interpretation Comments SODIUM (BEAKER) 140 meq/L 136-145 (test code = 381) POTASSIUM (BEAKER) 3.2 meq/L 3.5-5.1 L (test code = 379) CHLORIDE (BEAKER) 108 meq/L 98-107 H (test code = 382) CO2 (BEAKER) (test 22 meq/L 22-29 code = 355) BLOOD UREA NITROGEN 9 mg/dL 7-21 (BEAKER) (test code = 354) CREATININE (BEAKER) 1.11 mg/dL 0.57-1.25 (test code = 358) GLUCOSE RANDOM 159 mg/dL 70-105 H (BEAKER) (test code = 652) CALCIUM (BEAKER) 8.7 mg/dL 8.4-10.2 (test code = 697) EGFR (BEAKER) (test 69 mL/min/1.73 ESTIMA EKATERINA GFR IS code = 1092) sq m NOT ACCURATE CREATININE CLEARANCE IN PREDICTING GLOMERULAR FILTRATION RATE . ESTIMATED GFR I S NOT APPLICABLE FOR DIALYSIS PATIEN TS. Human Services Case Manager ID - [id number] 04:01:21 Test Item Value Reference Range Interpretation Comments MAGNESIUM (BEAKER) (test code = 1.8 mg/dL 1.6-2.6 627) Human Services Case Manager ID - DBCBC W/PLT COUNT & AUTO [id number] 03:40:45 Test Item Value Reference Range Interpretation Comments WHITE BLOOD CELL COUNT (BEAKER) 8.3 K/ L 3.5-10.5 (test code = 775) RED BLOOD CELL COUNT (BEAKER) 3.76 M/ L 4.63-6.08 L (test code = 761) HEMOGLOBIN (BEAKER) (test code = 10.4 GM/DL 13.7-17.5 L 410) HEMATOCRIT (BEAKER) (test code = 32.6 % 40.1-51.0 L 411) MEAN CORPUSCULAR VOLUME (BEAKER) 86.7 fL 79.0-92.2 (test code = 753) MEAN CORPUSCULAR HEMOGLOBIN 27.7 pg 25.7-32.2 (BEAKER) (test code = 751) MEAN CORPUSCULAR HEMOGLOBIN CONC 31.9 GM/DL 32.3-36.5 L (BEAKER) (test code = 752) RED CELL DISTRIBUTION WIDTH 13.2 % 11.6-14.4 (BEAKER) (test code = 412) PLATELET COUNT (BEAKER) (test 240 K/CU MM 150-450 code = 756) MEAN PLATELET VOLUME (BEAKER) 10.3 fL 9.4-12.4 (test code = 754) NUCLEATED RED BLOOD CELLS 0 /100 WBC 0-0 (BEAKER) (test code = 413) NEUTROPHILS RELATIVE PERCENT 70 % (BEAKER) (test code = 429) LYMPHOCYTES RELATIVE PERCENT 20 % (BEAKER) (test code = 430) MONOCYTES RELATIVE PERCENT 5 % (BEAKER) (test code = 431) EOSINOPHILS RELATIVE PERCENT 5 % (BEAKER) (test code = 432) BASOPHILS RELATIVE PERCENT 0 % (BEAKER) (test code = 437) NEUTROPHILS ABSOLUTE COUNT 5.80 K/ L 1.78-5.38 H (BEAKER) (test code = 670) LYMPHOCYTES ABSOLUTE COUNT 1.63 K/ L 1.32-3.57 (BEAKER) (test code = 414) MONOCYTES ABSOLUTE COUNT (BEAKER) 0.39 K/ L 0.30-0.82 (test code = 415) EOSINOPHILS ABSOLUTE COUNT 0.45 K/ L 0.04-0.54 (BEAKER) (test code = 416) BASOPHILS ABSOLUTE COUNT (BEAKER) 0.03 K/ L 0.01-0.08 (test code = 417) IMMATURE GRANULOCYTES-RELATIVE 0 % 0-1 PERCENT (BEAKER) (test code = 2801) POCT-GLUCOSE [id number] 21:23:17 Test Item Value Reference Range Interpretation Comments POC-GLUCOSE METER 149 mg/dL 70-110 H : TESTED A T [facility] 6720 (BEAKER) (test code = [facility], 1538) 48[address]: Human Services Case Manager/Techni adeola ID = [id number] for Or Jorge ramosella POCT-GLUCOSE [id number] 16:28:43 Test Item Value Reference Range Interpretation Comments POC-GLUCOSE METER 178 mg/dL 70-110 H : TESTED A T [facility] 6720 (BEAKER) (test code = [facility], 1538) 37[address]: Human Services Case Manager/Techni aedola ID = [id number] for Da vis, Yao POCT-GLUCOSE [id number] 11:51:12 Test Item Value Reference Range Interpretation Comments POC-GLUCOSE METER 242 mg/dL 70-110 H : TESTED A T [facility] 6720 (BEAKER) (test code = [facility], 1538) 39356: Human Services Case Manager/Techni adeola ID = [id number] for RA MOS, KRISTI POCT-GLUCOSE [id number] 07:29:20 Test Item Value Reference Range Interpretation Comments POC-GLUCOSE METER 189 mg/dL 70-110 H : TESTED A T [facility] 6720 (BEAKER) (test code = [facility], 1538) 01350: Human Services Case Manager/Techni adeola ID = [id number] for RA MOS, KRISTI [id number] 04:54:20 Test Item Value Reference Range Interpretation Comments PHOSPHORUS (BEAKER) (test code = 2.1 mg/dL 2.3-4.7 L 604) Human Services Case Manager ID - ADMINBASIC METABOLIC [id number] 04:54:19 Test Item Value Reference Range Interpretation Comments SODIUM (BEAKER) 142 meq/L 136-145 (test code = 381) POTASSIUM (BEAKER) 3.3 meq/L 3.5-5.1 L (test code = 379) CHLORIDE (BEAKER) 112 meq/L 98-107 H (test code = 382) CO2 (BEAKER) (test 23 meq/L 22-29 code = 355) BLOOD UREA NITROGEN 11 mg/dL 7-21 (BEAKER) (test code = 354) CREATININE (BEAKER) 1.05 mg/dL 0.57-1.25 (test code = 358) GLUCOSE RANDOM 246 mg/dL 70-105 H (BEAKER) (test code = 652) CALCIUM (BEAKER) 8.3 mg/dL 8.4-10.2 L (test code = 697) EGFR (BEAKER) (test 73 mL/min/1.73 ESTIMA EKATERINA GFR IS code = 1092) sq m NOT ACCURATE CREATININE CLEARANCE IN PREDICTING GLOMERULAR FILTRATION RATE . ESTIMATED GFR I S NOT APPLICABLE FOR DIALYSIS PATIEN TS. Human Services Case Manager ID - [id number] 04:54:19 Test Item Value Reference Range Interpretation Comments MAGNESIUM (BEAKER) (test code = 1.6 mg/dL 1.6-2.6 627) Human Services Case Manager ID - ADMINCBC W/PLT COUNT & AUTO [id number] 04:29:04 Test Item Value Reference Range Interpretation Comments WHITE BLOOD CELL COUNT (BEAKER) 9.0 K/ L 3.5-10.5 (test code = 775) RED BLOOD CELL COUNT (BEAKER) 3.49 M/ L 4.63-6.08 L (test code = 761) HEMOGLOBIN (BEAKER) (test code = 9.8 GM/DL 13.7-17.5 L 410) HEMATOCRIT (BEAKER) (test code = 30.6 % 40.1-51.0 L 411) MEAN CORPUSCULAR VOLUME (BEAKER) 87.7 fL 79.0-92.2 (test code = 753) MEAN CORPUSCULAR HEMOGLOBIN 28.1 pg 25.7-32.2 (BEAKER) (test code = 751) MEAN CORPUSCULAR HEMOGLOBIN CONC 32.0 GM/DL 32.3-36.5 L (BEAKER) (test code = 752) RED CELL DISTRIBUTION WIDTH 13.3 % 11.6-14.4 (BEAKER) (test code = 412) PLATELET COUNT (BEAKER) (test 232 K/CU MM 150-450 code = 756) MEAN PLATELET VOLUME (BEAKER) 10.6 fL 9.4-12.4 (test code = 754) NUCLEATED RED BLOOD CELLS 0 /100 WBC 0-0 (BEAKER) (test code = 413) NEUTROPHILS RELATIVE PERCENT 74 % (BEAKER) (test code = 429) LYMPHOCYTES RELATIVE PERCENT 17 % (BEAKER) (test code = 430) MONOCYTES RELATIVE PERCENT 4 % (BEAKER) (test code = 431) EOSINOPHILS RELATIVE PERCENT 5 % (BEAKER) (test code = 432) BASOPHILS RELATIVE PERCENT 0 % (BEAKER) (test code = 437) NEUTROPHILS ABSOLUTE COUNT 6.61 K/ L 1.78-5.38 H (BEAKER) (test code = 670) LYMPHOCYTES ABSOLUTE COUNT 1.51 K/ L 1.32-3.57 (BEAKER) (test code = 414) MONOCYTES ABSOLUTE COUNT (BEAKER) 0.39 K/ L 0.30-0.82 (test code = 415) EOSINOPHILS ABSOLUTE COUNT 0.40 K/ L 0.04-0.54 (BEAKER) (test code = 416) BASOPHILS ABSOLUTE COUNT (BEAKER) 0.02 K/ L 0.01-0.08 (test code = 417) IMMATURE GRANULOCYTES-RELATIVE 1 % 0-1 PERCENT (BEAKER) (test code = 2801) POCT-GLUCOSE [id number] 21:16:56 Test Item Value Reference Range Interpretation Comments POC-GLUCOSE METER 182 mg/dL 70-110 H : TESTED A T [facility] 6720 (BEAKER) (test code = [facility], 153) 34298: Human Services Case Manager/Techni adeola ID = [id number] for Anant Miguel POCT-GLUCOSE [id number] 16:46:30 Test Item Value Reference Range Interpretation Comments POC-GLUCOSE METER 182 mg/dL 70-110 H : TESTED A T [facility] 6720 (BEAKER) (test code = [facility], 1538) 27302: Human Services Case Manager/Techni adeola ID = [id number] for Uvaldo Estes POCT-GLUCOSE [id number] 11:39:19 Test Item Value Reference Range Interpretation Comments POC-GLUCOSE METER 241 mg/dL 70-110 H : TESTED A T [facility] 6720 (BEAKER) (test code = [facility] [place], 1538) 02755: Human Services Case Manager/Techni adeola ID = [id number] for Uvaldo Estes POCT-GLUCOSE [id number] 06:36:57 Test Item Value Reference Range Interpretation Comments POC-GLUCOSE METER 211 mg/dL 70-110 H : TESTED A T [facility] 6720 (BEAKER) (test code = [facility], 1538) 19923: Human Services Case Manager/Techni adeola ID = [id number] for Tomy Arias [id number] 06:33:57 Test Item Value Reference Range Interpretation Comments PHOSPHORUS (BEAKER) (test code = 1.7 mg/dL 2.3-4.7 L 604) Human Services Case Manager ID - AILIN GBASIC METABOLIC [id number] 06:33:56 Test Item Value Reference Range Interpretation Comments SODIUM (BEAKER) 145 meq/L 136-145 (test code = 381) POTASSIUM (BEAKER) 3.9 meq/L 3.5-5.1 (test code = 379) CHLORIDE (BEAKER) 113 meq/L 98-107 H (test code = 382) CO2 (BEAKER) (test 23 meq/L 22-29 code = 355) BLOOD UREA NITROGEN 12 mg/dL 7-21 (BEAKER) (test code = 354) CREATININE (BEAKER) 1.20 mg/dL 0.57-1.25 (test code = 358) GLUCOSE RANDOM 222 mg/dL 70-105 H (BEAKER) (test code = 652) CALCIUM (BEAKER) 8.8 mg/dL 8.4-10.2 (test code = 697) EGFR (BEAKER) (test 63 mL/min/1.73 ESTIMA EKATERINA GFR IS code = 1092) sq m NOT ACCURATE CREATININE CLEARANCE IN PREDICTING GLOMERULAR FILTRATION RATE . ESTIMATED GFR I S NOT APPLICABLE FOR DIALYSIS PATIEN TS. Human Services Case Manager ID - AILIN [id number] 06:33:56 Test Item Value Reference Range Interpretation Comments MAGNESIUM (BEAKER) (test code = 1.9 mg/dL 1.6-2.6 627) Human Services Case Manager ID - AILIN GCBC W/PLT COUNT & AUTO [id number] 06:06:37 Test Item Value Reference Range Interpretation Comments WHITE BLOOD CELL COUNT (BEAKER) 12.6 K/ L 3.5-10.5 H (test code = 775) RED BLOOD CELL COUNT (BEAKER) 3.86 M/ L 4.63-6.08 L (test code = 761) HEMOGLOBIN (BEAKER) (test code = 10.8 GM/DL 13.7-17.5 L 410) HEMATOCRIT (BEAKER) (test code = 34.1 % 40.1-51.0 L 411) MEAN CORPUSCULAR VOLUME (BEAKER) 88.3 fL 79.0-92.2 (test code = 753) MEAN CORPUSCULAR HEMOGLOBIN 28.0 pg 25.7-32.2 (BEAKER) (test code = 751) MEAN CORPUSCULAR HEMOGLOBIN CONC 31.7 GM/DL 32.3-36.5 L (BEAKER) (test code = 752) RED CELL DISTRIBUTION WIDTH 13.4 % 11.6-14.4 (BEAKER) (test code = 412) PLATELET COUNT (BEAKER) (test 234 K/CU MM 150-450 code = 756) MEAN PLATELET VOLUME (BEAKER) 10.8 fL 9.4-12.4 (test code = 754) NUCLEATED RED BLOOD CELLS 0 /100 WBC 0-0 (BEAKER) (test code = 413) NEUTROPHILS RELATIVE PERCENT 84 % (BEAKER) (test code = 429) LYMPHOCYTES RELATIVE PERCENT 11 % (BEAKER) (test code = 430) MONOCYTES RELATIVE PERCENT 4 % (BEAKER) (test code = 431) EOSINOPHILS RELATIVE PERCENT 1 % (BEAKER) (test code = 432) BASOPHILS RELATIVE PERCENT 0 % (BEAKER) (test code = 437) NEUTROPHILS ABSOLUTE COUNT 10.64 K/ L 1.78-5.38 H (BEAKER) (test code = 670) LYMPHOCYTES ABSOLUTE COUNT 1.32 K/ L 1.32-3.57 (BEAKER) (test code = 414) MONOCYTES ABSOLUTE COUNT (BEAKER) 0.45 K/ L 0.30-0.82 (test code = 415) EOSINOPHILS ABSOLUTE COUNT 0.10 K/ L 0.04-0.54 (BEAKER) (test code = 416) BASOPHILS ABSOLUTE COUNT (BEAKER) 0.03 K/ L 0.01-0.08 (test code = 417) IMMATURE GRANULOCYTES-RELATIVE 1 % 0-1 PERCENT ([facility]) (test code = 2801) VANCOMYCIN LEVEL, [id number] 00:19:08 Test Item Value Reference Range Interpretation Comments VANCOMYCIN TROUGH ([facility]) (test 13.6 ug/mL 10.0-20.0 code = 522) Human Services Case Manager ID - DBPOCT-GLUCOSE [id number] 23:01:21 Test Item Value Reference Range Interpretation Comments POC-GLUCOSE METER 200 mg/dL 70-110 H : TESTED A T [facility] 6720 ([facility]) (test code = [facility], 1538) [address]: Human Services Case Manager/Techni adeola ID = [id number] for Tomy Arias POCT-GLUCOSE [id number] 18:25:14 Test Item Value Reference Range Interpretation Comments POC-GLUCOSE METER 218 mg/dL 70-110 H : [facility]) (test code = [facility], 1538) [address]: Human Services Case Manager/Techni adeola ID = [id number] for Wi lliams, Areiona POCT-GLUCOSE [id number] 11:30:08 Test Item Value Reference Range Interpretation Comments POC-GLUCOSE METER 203 mg/dL 70-110 H : TESTED A T [facility] ([facility]) (test code = [facility], 1538) [address]: Human Services Case Manager/Techni adeola ID = [id number] for Wi lliams, Areiona POCT-GLUCOSE [id number] 06:17:10 Test Item Value Reference Range Interpretation Comments POC-GLUCOSE METER 233 mg/dL 70-110 H : Notified RN/MD: ([facility]) (test code = [facility], [address]: Human Services Case Manager/Techni adeola ID = [id number] for [place], Logan CBC W/PLT COUNT & AUTO [id number] 05:50:17 Test Item Value Reference Range Interpretation Comments WHITE BLOOD CELL COUNT ([facility]) 14.4 K/ L 3.5-10.5 H (test code = 775) RED BLOOD CELL COUNT (BEAKER) 4.08 M/ L 4.63-6.08 L (test code = 761) HEMOGLOBIN (BEAKER) (test code = 11.3 GM/DL 13.7-17.5 L 410) HEMATOCRIT (BEAKER) (test code = 35.9 % 40.1-51.0 L 411) MEAN CORPUSCULAR VOLUME (BEAKER) 88.0 fL 79.0-92.2 (test code = 753) MEAN CORPUSCULAR HEMOGLOBIN 27.7 pg 25.7-32.2 (BEAKER) (test code = 751) MEAN CORPUSCULAR HEMOGLOBIN CONC 31.5 GM/DL 32.3-36.5 L (BEAKER) (test code = 752) RED CELL DISTRIBUTION WIDTH 13.6 % 11.6-14.4 (BEAKER) (test code = 412) PLATELET COUNT (BEAKER) (test 226 K/CU MM 150-450 code = 756) MEAN PLATELET VOLUME (BEAKER) 10.5 fL 9.4-12.4 (test code = 754) NUCLEATED RED BLOOD CELLS 0 /100 WBC 0-0 (BEAKER) (test code = 413) NEUTROPHILS RELATIVE PERCENT 87 % (BEAKER) (test code = 429) LYMPHOCYTES RELATIVE PERCENT 8 % (BEAKER) (test code = 430) MONOCYTES RELATIVE PERCENT 4 % (BEAKER) (test code = 431) EOSINOPHILS RELATIVE PERCENT 0 % (BEAKER) (test code = 432) BASOPHILS RELATIVE PERCENT 0 % (BEAKER) (test code = 437) NEUTROPHILS ABSOLUTE COUNT 12.49 K/ L 1.78-5.38 H (BEAKER) (test code = 670) LYMPHOCYTES ABSOLUTE COUNT 1.11 K/ L 1.32-3.57 L (BEAKER) (test code = 414) MONOCYTES ABSOLUTE COUNT (BEAKER) 0.61 K/ L 0.30-0.82 (test code = 415) EOSINOPHILS ABSOLUTE COUNT 0.01 K/ L 0.04-0.54 L (BEAKER) (test code = 416) BASOPHILS ABSOLUTE COUNT (BEAKER) 0.03 K/ L 0.01-0.08 (test code = 417) IMMATURE GRANULOCYTES-RELATIVE 1 % 0-1 PERCENT (BEAKER) (test code = 2801) [id number] 05:31:22 Test Item Value Reference Range Interpretation Comments PHOSPHORUS (BEAKER) (test code = 1.9 mg/dL 2.3-4.7 L 604) Human Services Case Manager ID - LEAH MBASIC METABOLIC [id number] 05:31:21 Test Item Value Reference Range Interpretation Comments SODIUM (BEAKER) 143 meq/L 136-145 (test code = 381) POTASSIUM (BEAKER) 3.9 meq/L 3.5-5.1 (test code = 379) CHLORIDE (BEAKER) 114 meq/L 98-107 H (test code = 382) CO2 (BEAKER) (test 20 meq/L 22-29 L code = 355) BLOOD UREA NITROGEN 13 mg/dL 7-21 (BEAKER) (test code = 354) CREATININE (BEAKER) 1.23 mg/dL 0.57-1.25 (test code = 358) GLUCOSE RANDOM 234 mg/dL 70-105 H (BEAKER) (test code = 652) CALCIUM (BEAKER) 8.3 mg/dL 8.4-10.2 L (test code = 697) EGFR (BEAKER) (test 61 mL/min/1.73 ESTIMA EKATERINA GFR IS code = 1092) sq m NOT ACCURATE CREATININE CLEARANCE IN PREDICTING GLOMERULAR FILTRATION RATE . ESTIMATED GFR I S NOT APPLICABLE FOR DIALYSIS PATIEN TS. Human Services Case Manager ID - LEAH [id number] 05:31:21 Test Item Value Reference Range Interpretation Comments MAGNESIUM (BEAKER) (test code = 1.5 mg/dL 1.6-2.6 L 627) Human Services Case Manager ID - LEAH MPOCT-GLUCOSE [id number] 00:25:48 Test Item Value Reference Range Interpretation Comments POC-GLUCOSE METER 213 mg/dL 70-110 H : Notified RN/MD: ([facility]) (test code = TESTED AT [facility] 6720 1538) [facility], [address]: Human Services Case Manager/Techni adeola ID = [id number] for Logan Doty POCT-GLUCOSE [id number] 18:27:24 Test Item Value Reference Range Interpretation Comments POC-GLUCOSE METER 203 mg/dL 70-110 H : TESTED A T [facility] 6720 ([facility]) (test code = [facility], 1538) [address]: Human Services Case Manager/Techni adeola ID = [id number] for Yaya Hightower (CELLAVISION MANUAL DIFF)2021-06-15 08:45:11 Test Item Value Reference Range Interpretation Comments NEUTROPHILS - REL 84 % ([facility])(BEAKER) (test code = 2816) LYMPHOCYTES - REL 6 % ([facility])(BEAKER) (test code = 2817) MONOCYTES - REL 3 % ([facility])(BEAKER) (test code = 2818) METAMYELOCYTES - REL 1 % 0-0 H (CELLAVISION)(BEAKER) (test code = 2821) BANDS - REL ([facility])(BEAKER) 6 % 0-10 (test code = 2826) NEUTROPHILS - ABS 15.29 K/ul 1.78-5.38 H (CELLAVISION)(BEAKER) (test code = 2830) LYMPHOCYTES - ABS 1.09 K/ul 1.32-3.57 L (CELLAVISION)(BEAKER) (test code = 2831) MONOCYTES - ABS 0.55 K/uL 0.30-0.82 (CELLAVISION)(BEAKER) (test code = 2832) METAMYELOCYTES - ABS 0.18 K/uL 0.00-0.00 H (CELLAVISION)(BEAKER) (test code = 2836) BANDS - ABS ([facility])(BEAKER) 1.09 K/uL 0.00-0.80 H (test code = 2840) TOTAL COUNTED (BEAKER) (test code 100 = 1351) WBC MORPHOLOGY (BEAKER) (test code Normal = 487) PLT MORPHOLOGY (BEAKER) (test code Normal = 486) POLYCHROMATOPHILLIC RBCS(BEAKER) 1+ few (test code = 478) ANISOCYTOSIS (BEAKER) (test code = 1+ few 961) MICROCYTES (BEAKER) (test code = 1+ few 965) ARTIFACT ([facility])(BEAKER) Present (test code = 3432) PLATELET CONCENTRATION Adequate ([facility])(BEAKER) (test code = 3438) Human Services Case Manager ID - Sobeida Velázquez comments: Slide comments:CBC W/PLT COUNT & AUTO [id number] 08:45:05 Test Item Value Reference Range Interpretation Comments WHITE BLOOD CELL COUNT (BEAKER) 18.2 K/ L 3.5-10.5 H (test code = 775) RED BLOOD CELL COUNT (BEAKER) 4.46 M/ L 4.63-6.08 L (test code = 761) HEMOGLOBIN (BEAKER) (test code = 12.4 GM/DL 13.7-17.5 L 410) HEMATOCRIT (BEAKER) (test code = 38.8 % 40.1-51.0 L 411) MEAN CORPUSCULAR VOLUME (BEAKER) 87.0 fL 79.0-92.2 (test code = 753) MEAN CORPUSCULAR HEMOGLOBIN 27.8 pg 25.7-32.2 (BEAKER) (test code = 751) MEAN CORPUSCULAR HEMOGLOBIN CONC 32.0 GM/DL 32.3-36.5 L (BEAKER) (test code = 752) RED CELL DISTRIBUTION WIDTH 13.4 % 11.6-14.4 (BEAKER) (test code = 412) PLATELET COUNT (BEAKER) (test 253 K/CU MM 150-450 code = 756) MEAN PLATELET VOLUME (BEAKER) 10.5 fL 9.4-12.4 (test code = 754) NUCLEATED RED BLOOD CELLS 0 /100 WBC 0-0 (BEAKER) (test code = 413) [id number] 06:30:56 Test Item Value Reference Range Interpretation Comments PHOSPHORUS (BEAKER) (test code = 3.5 mg/dL 2.3-4.7 604) Human Services Case Manager ID - LEAH [id number] 06:30:55 Test Item Value Reference Range Interpretation Comments MAGNESIUM (BEAKER) (test code = 1.4 mg/dL 1.6-2.6 L 627) Human Services Case Manager ID - LEAH MBASIC METABOLIC [id number] 06:30:54 Test Item Value Reference Range Interpretation Comments SODIUM (BEAKER) 142 meq/L 136-145 (test code = 381) POTASSIUM (BEAKER) 4.8 meq/L 3.5-5.1 (test code = 379) CHLORIDE (BEAKER) 112 meq/L 98-107 H (test code = 382) CO2 (BEAKER) (test 20 meq/L 22-29 L code = 355) BLOOD UREA NITROGEN 22 mg/dL 7-21 H (BEAKER) (test code = 354) CREATININE (BEAKER) 1.59 mg/dL 0.57-1.25 H (test code = 358) GLUCOSE RANDOM 332 mg/dL 70-105 H (BEAKER) (test code = 652) CALCIUM (BEAKER) 8.1 mg/dL 8.4-10.2 L (test code = 697) EGFR (BEAKER) (test 45 mL/min/1.73 ESTIMA EKATERINA GFR IS code = 1092) sq m NOT ACCURATE CREATININE CLEARANCE IN PREDICTING GLOMERULAR FILTRATION RATE . ESTIMATED GFR I S NOT APPLICABLE FOR DIALYSIS PATIEN TS. Human Services Case Manager ID - LEAH MPOCT-GLUCOSE [id number] 05:37:53 Test Item Value Reference Range Interpretation Comments POC-GLUCOSE METER 281 mg/dL 70-110 H : TESTED A T [facility] 6720 (BEVICKI) (test code = [facility], 1538) [address]: Human Services Case Manager/Techni adeola ID = [id number] for HOWARD FLORES POCT-GLUCOSE [id number] 21:50:49 Test Item Value Reference Range Interpretation Comments POC-GLUCOSE METER 225 mg/dL 70-110 H : TESTED A T [facility] 6720 (BEAKER) (test code = [facility], 1538) [address]: Human Services Case Manager/Techni adeola ID = [id number] for Drew andrew Rashel RAD, ABDOMEN/KUB, 1 VIEW [id number] 21:45:00Reason for exam:->NG tube placementShould this be performed at the bedside?->[facility] : 1965 Sex: MFINAL REPORT EXAM: RAD, ABDOMEN/KUB, 1 VIEW AP History: NG tube placement Comparison: None available. Discussion: Enteric tube is noted projecting over the left upper quadrant in expected region of the gastric body.No data loops of bowel are identified. Cornell catheter is identified. Anterior midline soft tissue skin ricarda are noted.No acute osseous abnormality. IMPRESSION: Enteric tube projects over the proximal stomach overlying the left upper quadrant. Signed: Homero Rai MDReport Verified Date/Time: 06/14/2021 21:45:52 Reading Location: [facility] Reading Room POCT- GLUCOSE [id number] 17:47:10 Test Item Value Reference Range Interpretation Comments POC-GLUCOSE METER 179 mg/dL 70-110 H : TESTED A T [facility] 6720 (BEAKER) (test code = [facility], 1538) [address]: Human Services Case Manager/Techni adeola ID = [id number] for AB HAM, MARIO BUN AND CREATININE [id number] 11:30:01 Test Item Value Reference Range Interpretation Comments BLOOD UREA NITROGEN 21 mg/dL 7-21 (BEAKER) (test code = 354) CREATININE (BEAKER) 1.06 mg/dL 0.57-1.25 (test code = 358) BUN/CREAT RATIO 20 For a normal (BEAKER) (test code individu al on a = 3772258721) normal diet, t he reference inter yves for the mass ra latosha ranges between 12:1 and 20:1 (BUN i n mg/dL/creatinin e in mg/dL) EGFR (BEAKER) (test 72 mL/min/1.73 ESTIMA EKATERINA GFR IS code = 1092) sq m NOT ACCURATE CREATININE CLEARANCE IN PREDICTING GLOMERULAR FILTRATION RATE . ESTIMATED GFR I S NOT APPLICABLE FOR DIALYSIS PATIEN TS. Human Services Case Manager ID - KODY [id number] 11:30:00 Test Item Value Reference Range Interpretation Comments SODIUM (BEAKER) (test 141 meq/L 136-145 code = 381) POTASSIUM (BEAKER) 4.5 meq/L 3.5-5.1 Specimen slightly (test code = 379) hemolyzed CHLORIDE (BEAKER) 109 meq/L 98-107 H (test code = 382) CO2 (BEAKER) (test 24 meq/L 22-29 code = 355) Human Services Case Manager ID - KODY [id number] 11:30:00 Test Item Value Reference Range Interpretation Comments GLUCOSE RANDOM (BEAKER) (test code 149 mg/dL 70-105 H = 652) Human Services Case Manager ID - KODY [id number] 11:13:39 Test Item Value Reference Range Interpretation Comments HEMOGLOBIN (BEAKER) (test code = 13.0 GM/DL 13.7-17.5 L 410) Human Services Case Manager ID - [id number] [id number] 09:30:00 Test Item Value Reference Range Interpretation Comments HEMOGLOBIN A1C (test 7.7 % 4.2-5.6 H ERITREAN code = 4548-4) DIABETES ASSO CIATION GUIDELINES FOR HGB A1C: PREDIABETES/INC REASED RISK . . . . . . . 5.7-6.4% DIAGNOSIS OF DI ABETES . . . . . . . . . >=6.5% WITH CONFIRMATION OR APPROPRIATE SYM PTOMS NOTE: ASSAY MA Y BE AFFECTED BY HEMOGLOBINOPATH IES (SICKLE DILLAN L ANEMIA, S-C DISEASE, OT HERS) OR ARTIFICIALLY LO WERED BY DECREASED RE D CELL SURVIVAL (HEMOL YTIC ANEMIAS, BLOOD LOSS, ETC.). CONSIDE R ALTERNATE TESTI NG OR LABORATORY CONS ULTATION. Unless Otherwise Indic ated, All Testing Perform ed At: [facility], [address] [place] [address] Physician Anesthesiologist: Andria Lilly [id number] [place]. [id number] Lab Interpretation Abnormal (test code = 76270-2) [facility] [id number] 12:08:10Surgical Pathology Report Case: [id number] Authorizing Provider: Kelli Correa MD Collected: 04/15/2021 04:04 PM Ordering Location: [facility] Received: 04/18/2021 09:45 AM Pathologist: Jayde Chicas MD Specimen: Polyp, Colon - Sigmoid SIGMOID COLON POLYP, BIOPSY: - FRAGMENTS OF TUBULAR ADENOMASJ/pl Signing Pathologist Direct Phone Line: [phone] signed by Jayde Chicas MD on 04/19/2021 at 12:08 PMEndoscopic report reviewed.[id number] t5Zsykivtipnlphpb fistulaSigmoid colonReceived in formalin labeled the patient's name, accession number and "sigmoid colon polyp" are 2 omer soft tissue fragments measuring up to 0.3 cm in greatest dimension which are filtered and submitted in toto in A1.CHRISTOPHER Valentin, HT (ASCP)PerformedPOCT-GLUCOSE [id number] 14:30:56 Test Item Value Reference Range Interpretation Comments POC-GLUCOSE METER 125 mg/dL 70-110 H : TESTED A T [facility] 6720 (BEAKER) (test code = [facility] [place], 1538) [id number]: Human Services Case Manager/Techni adeola ID = [id number] for BOB FRANKLIN FERNANDODE SARS-COV2/RT-PCR ([facility])2021-04-14 01:18:28 Test Item Value Reference Range Interpretation Comments SARS-COV2/RT-PCR (test code = Negative Negative [id number]) Negative result for this test determines that SARS-CoV-2 RNA was not present in the specimen above the Limit of Detection (LOD). However, Negative results do not preclude SARS-CoV-2 infection and should not be used as the sole basis for treatment or patient management decisions. Negative results must be combined with clinical observations, patient history, and epidemiological information. A false negative result may occur if a specimen is improperly collected, transported, or handled. A false negative result should be considered if patient's recent exposures or clinical presentation indicate that COVID-19 (SARS-CoV-2) is likely and diagnostic tests for other causes of illness are negative. Re-testing should be considered in cases of suspected false negatives.The limit of detection for this assay is 100 copies/mL.This SARS-CoV-2 test is a real-time RT_PCR test intended for the qualitative detection of nucleic acid from SARS-CoV-2 in a nasopharyngeal swab specimen collected from individuals suspected of COVID-19 by their healthcare provider.This test has not been Food and Drug Administration (FDA) cleared or approved. This is a modified version of an approved Emergency Use Authorization (EUA) and is in the process of review by the FDA. Once authorized by the FDA, the issued EUA will be e ffective until the declaration that circumstances exist justifying the authorization of the emergency use of in vitro diagnostic tests for detection and/or diagnosis of COVID-19 is terminated under Section 564(b)(2) of the Act or the EUA is revoked under Section 564(g) of the Act.Testing was performedusing the Sam SARS-CoV-2 assay.Fact Sheet for Healthcare Providers:https://www.molecular.sam/delicia/RT SARS-CoV-2 HCP Fact Sheet 51- 285908.pdfFact Sheet for Healthcare Patients:https://www.molecular.sam/delicia/RT SARS-CoV-2 Patient Fact Sheet EN 51-658508Z2.pdf
[2021-09-12 01:16] LABS: Protime INR 0.91
[2021-09-12 01:17] LABS: Absolute Lymphocytes (CBC) 3.6 K/uL (0.7-4.9); MPV 8.8 fL (7.6-11.3)
[2021-09-12 01:22] LABS: Hematocrit 40.2 % (39.6-49.0); Lymphocytes % 35.7 % (15.3-44.8); RBC Red Blood Cell Count 5.01 M/uL (4.33-5.43)
[2021-09-12 01:30] LABS: ALT/SGPT 67 U/L (12-78); AST/SGOT 34 U/L (15-37); Albumin 3.9 g/dL (3.4-5.0); Alkaline Phosphatase 122 U/L (45-117); BUN Blood Urea Nitrogen 32 mg/dL (7-18); Bicarbonate 24 mmol/L (21-32); Bilirubin Total 0.2 mg/dL (0.2-1.0); Glucose Level 115 mg/dL (74-106); NT PRO-BNP 40 pg/mL (<125); Protein, Total 7.8 g/dL (6.4-8.2); Sodium Level 140 mmol/L (136-145)
[2021-09-12 01:34] LABS: Bilirubin Direct < 0.1 mg/dL (0-0.2)
--- NOTE | 2021-09-12 02:03 | EDPHYS ---
Physician Documentation [facility] Name: Adam Ortez Age: 55 yrs Sex: Male : 1965 Arrival Date: 09/11/2021 Time: 23:44 Bed 14 Private MD: ED Physician Siddhartha López HPI: 09/12 00:19 This 55 yrs old Male presents to ER via Ambulatory with complaints of High pm1 Blood Pressure. 00:19 The patient has elevated blood pressure and discovered this at home, with a home pm1 device. Onset: The symptoms/episode began/occurred 3 day(s) ago. Associated signs and symptoms: Pertinent negatives: chest pain, dizziness, dyspnea, headache, nausea, vomiting, weakness. Severity of symptoms: in the emergency department the blood pressure is unchanged, since finding out his blood pressure was elevated on Sunday. Blood pressure was checked by [employer] nurse. The patient has not recently seen a physician, the patient's primary care provider is Dr. Rai. Historical: - Allergies: 09/11 23:58 No Known Allergies; sf1 - Immunization history:: Flu vaccine is not up to date. - Social history:: Smoking status: Patient denies any tobacco usage or history of. Patient/guardian denies using alcohol, street drugs. ROS: 09/12 00:19 Constitutional: Negative for fever, chills, and weight loss, Cardiovascular: Negative pm1 for chest pain, palpitations, and edema, Respiratory: Negative for shortness of breath, cough, wheezing, and pleuritic chest pain, Abdomen/GI: Negative for abdominal pain, nausea, vomiting, diarrhea, and constipation, MS/Extremity: Negative for injury and deformity, Skin: Negative for injury, rash, and discoloration, Neuro: Negative for headache, weakness, numbness, tingling, and seizure. All other systems are negative. Exam: 00:19 Constitutional: This is a well developed, well nourished patient who is awake, alert, pm1 and in no acute distress. Head/Face: Normocephalic, atraumatic. 00:19 Skin: Warm, dry with normal turgor. Normal color with no rashes, no lesions, and no evidence of cellulitis. MS/ Extremity: Pulses equal, no cyanosis. Neurovascular intact. Full, normal range of motion. 00:19 Cardiovascular: Exam negative for acute changes, Rate: normal, Rhythm: regular, Pulses: no pulse deficits are appreciated, Heart sounds: normal, normal S1and S2. 00:19 Respiratory: Exam negative for acute changes, respiratory distress, shortness of breath, Breath sounds: are clear throughout. 00:19 Abdomen/GI: Exam negative for acute changes, Inspection: abdomen appears normal, Palpation: abdomen is soft and non-tender, in all quadrants. 00:19 Neuro: Exam negative for acute changes, Orientation: is normal, Mentation: is normal, Motor: is normal, moves all fours. Vital Signs: 09/11 23:57 BP 173 / 120; Pulse 85; Resp 18; Temp 98.5(O); Pulse Ox 99% ; Weight 113.4 kg; Height 5 sf1 ft. 9 in. (175.26 cm); 09/12 00:40 BP 154 / 115; Pulse 78; Resp 24 S; Pulse Ox 98% on R/A; Pain 0/10; lg3 03:03 BP 149 / 102; Pulse 70; Resp 19 S; Pulse Ox 95% on R/A; Pain 0/10; lg3 09/11 23:57 Body Mass Index 36.92 (113.40 kg, 175.26 cm) sf1 MDM: 09/11 23:54 Patient medically screened. pm1 09/12 02:00 Data reviewed: vital signs. Data interpreted: Pulse oximetry: on room air is 98 %. pm1 Interpretation: normal. Counseling: I had a detailed discussion with the patient and/or guardian regarding: the historical points, exam findings, and any diagnostic results supporting the discharge/admit diagnosis, lab results, radiology results, the need for outpatient follow up, a family practitioner. 02:00 Special discussion: I have referred the patient to see his PCP for further evaluation pm1 of high blood pressure. 09/12 00:06 Order name: Basic Metabolic Panel; Complete Time: : pm1 09/12 00:06 Order name: CBC with Diff; Complete Time: : pm1 09/12 00:06 Order name: LFT's; Complete Time: : pm1 09/12 00:06 Order name: Magnesium; Complete Time: : pm1 09/12 00:06 Order name: NT PRO-BNP; Complete Time: : pm09/12 00:06 Order name: PT-INR; Complete Time: 01:56 pm09/12 00:06 Order name: Troponin HS; Complete Time: 01:56 pm09/12 00:06 Order name: XRAY Chest (1 view) pm1 09/12 00:06 Order name: EKG; Complete Time: 00:07 pm09/12 00:06 Order name: Cardiac monitoring; Complete Time: 00:44 pm09/12 00:06 Order name: EKG - Nurse/Tech; Complete Time: 00:44 pm09/12 00:06 Order name: IV Saline Lock; Complete Time: 00:44 pm09/12 00:06 Order name: Labs collected and sent; Complete Time: 00:44 pm09/12 00:06 Order name: O2 Per Protocol; Complete Time: 00:44 pm09/12 00:06 Order name: O2 Sat Monitoring; Complete Time: 00:45 pm1 Administered Medications: 02:21 Drug: NS 0.9% 500 ml Route: IV; Rate: bolus; Site: left antecubital; 1 02:49 Follow up: Response: No adverse reaction; IV Status: Completed infusion; IV Intake: lg3 500ml Disposition: 04:21 Co-signature as Attending Physician, Siddhartha López MD. 7 Disposition Summary: 09/12/21 02:02 Discharge Ordered Location: Home pm1 Problem: new pm1 Symptoms: have improved pm1 Condition: Stable pm1 Diagnosis - Essential (primary) hypertension pm1 Followup: pm1 - With: Emergency Department - When: As needed - Reason: Worsening of condition Followup: pm1 - With: Private Physician - When: 2 - 3 days - Reason: Recheck today's complaints, Continuance of care, Re-evaluation by your physician Discharge Instructions: - Discharge Summary Sheet pm1 - Hypertension, Adult pm1 - How to Take Your Blood Pressure, Bosf-tl-Hdpd pm1 - DASH Eating Plan pm1 - Managing Your Hypertension pm1 Forms: - Medication Reconciliation Form pm1 - Thank You Letter pm1 - Antibiotic Education pm1 - Prescription Opioid Use pm1 Signatures: Dispatcher [employer] EDMS Lucas Galvan, SUSPENSION CORD TIER SUSPENSION CORD TIER pm1 Ema Allen, BRIAN RN 3 Siddhartha López MD MD 7 Lauren Ochoa RN RN sf1 Corrections: (The following items were deleted from the chart) 00:45 00:07 BASIC METABOLIC PANEL+C.LAB.BRZ ordered. EDMS EDMS
--- NOTE | 2021-09-12 02:03 | ER ---
Nurse's Notes [facility] Name: Adam Ortez Age: 55 yrs Sex: Male : 1965 Arrival Date: 09/11/2021 Time: 23:44 Bed 14 Private MD: Diagnosis: Essential (primary) hypertension Presentation: 09/11 23:57 Chief complaint: Patient states: high blood pressure. Coronavirus screen: Vaccine sf1 status: Patient reports being unvaccinated. Client denies travel out of the [place] in the last 14 days. Ebola Screen: Patient negative for fever greater than or equal to 101.5 degrees Fahrenheit, and additional compatible Ebola Virus Disease symptoms Patient denies exposure to infectious person. Patient denies travel to an Ebola-affected area in the 21 days before illness onset. Initial Sepsis Screen: Does the patient meet any 2 criteria? No. Patient's initial sepsis screen is negative. Does the patient have a suspected source of infection? No. Patient's initial sepsis screen is negative. Risk Assessment: Do you want to hurt yourself or someone else? Patient reports no desire to harm self or others. Onset of symptoms was September 04, 2021. 23:57 Method Of Arrival: Ambulatory sf1 23:57 Acuity: BINTA 3 sf1 Historical: - Allergies: 23:58 No Known Allergies; sf1 - Immunization history:: Flu vaccine is not up to date. - Social history:: Smoking status: Patient denies any tobacco usage or history of. Patient/guardian denies using alcohol, street drugs. Screenin/28 00:49 Abuse screen: Denies threats or abuse. Denies injuries from another. Nutritional lg3 screening: No deficits noted. Tuberculosis screening: No symptoms or risk factors identified. Fall Risk None identified. Assessment: 00:49 General: Appears in no apparent distress. comfortable, Behavior is calm, cooperative. lg3 Pain: Denies pain. Neuro: No deficits noted. Level of Consciousness is awake, alert, obeys commands, Oriented to person, place, time, situation. Cardiovascular: No deficits noted. Denies chest pain, palpitations, shortness of breath, Heart tones S1 S2 present Rhythm is sinus rhythm. Respiratory: No deficits noted. Airway is patent Trachea midline Respiratory effort is even, unlabored, Respiratory pattern is regular, symmetrical. GI: No deficits noted. No signs and/or symptoms were reported involving the gastrointestinal system. Abdomen is round non-distended, Bowel sounds present X 4 quads. 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 abdominal scar noted. abdominal binder in place. : No deficits noted. No signs and/or symptoms were reported regarding the genitourinary system. EENT: No deficits noted. No signs and/or symptoms were reported regarding the EENT system. Derm: Skin is intact, is healthy with good turgor, Skin is dry. Musculoskeletal: No deficits noted. No signs and/or symptoms reported regarding the musculoskeletal system. Circulation, motion, and sensation intact. Capillary refill < 3 seconds, Range of motion: intact in all extremities. 03:03 Reassessment: Patient appears in no apparent distress at this time. No changes from lg3 previously documented assessment. Patient and/or family updated on plan of care and expected duration. Pain level reassessed. Patient is alert, oriented x 3, equal unlabored respirations, skin warm/dry/pink. Patient denies pain at this time. Patient states feeling better. Patient states symptoms have improved. Vital Signs: 09/11 23:57 BP 173 / 120; Pulse 85; Resp 18; Temp 98.5(O); Pulse Ox 99% ; Weight 113.4 kg; Height 5 sf1 ft. 9 in. (175.26 cm); 09/12 00:40 BP 154 / 115; Pulse 78; Resp 24 S; Pulse Ox 98% on R/A; Pain 0/10; lg3 03:03 BP 149 / 102; Pulse 70; Resp 19 S; Pulse Ox 95% on R/A; Pain 0/10; lg3 09/11 23:57 Body Mass Index 36.92 (113.40 kg, 175.26 cm) sf1 ED Course: 09/11 23:44 Patient arrived in ED. wm 23:48 Ema Allen, BRIAN is Primary Nurse. lg3 23:49 Lucas Galvan NP is PHCP. pm1 23:49 Siddhartha López MD is Attending Physician. pm1 23:58 Triage completed. sf1 09/12 00:22 XRAY Chest (1 view) In Process Unspecified. EDMS 00:45 CBC with Diff Sent. lg3 00:45 LFT's Sent. lg3 00:45 Magnesium Sent. lg3 00:45 NT PRO-BNP Sent. lg3 00:45 PT-INR Sent. lg3 00:45 Troponin HS Sent. lg3 00:49 Inserted saline lock: 20 gauge in left antecubital area, using aseptic technique. Blood lg3 collected. 00:49 Patient has correct armband on for positive identification. Bed in low position. Call lg3 light in reach. Side rails up X 1. compliance monitor on. Pulse ox on. NIBP on. Door closed. Noise minimized. Lights dimmed. Warm blanket given. 00:54 Patient notified of wait time. lg3 03:03 No provider procedures requiring assistance completed. IV discontinued, intact, lg3 bleeding controlled, No redness/swelling at site. Pressure dressing applied. Administered Medications: 02:21 Drug: NS 0.9% 500 ml Route: IV; Rate: bolus; Site: left antecubital; sf1 02:49 Follow up: Response: No adverse reaction; IV Status: Completed infusion; IV Intake: lg3 500ml Intake: 02:49 IV: 500ml; Total: 500ml. lg3 Outcome: 02:02 Discharge ordered by . pm1 03:03 Discharged to home ambulatory. lg3 03:03 Condition: stable 03:03 Discharge instructions given to patient, Instructed on discharge instructions, Demonstrated understanding of instructions. 03:05 Patient left the ED. lg3 Signatures: Dispatcher [employer] EDMS Lucas Galvan, [employer] SUSPENSION COORDINATOR pm1 Ema Allen RN RN lg3 Mariola Sena Samantha, RN RN sf1 Corrections: (The following items were deleted from the chart) 00:45 00:45 BASIC METABOLIC PANEL+[id number].[email or web address] drawn and sent. lg3 EDMS
[2021-09-12] MEDS ORDERED: NA CHLORIDE 0.9% 500 ML ONE (02:21)
[2021-09-12 03:31] VITALS: TEMP 98.5
[2021-09-12 03:39] VITALS: BP 149/102; O2SAT 95
--- NOTE | 2021-09-12 07:41 | RAD REPORT ---
EXAM DESCRIPTION: RAD - Chest Single View - 09/12/2021 12:22 am CLINICAL HISTORY: SOB COMPARISON: Chest Single View dated 01/28/2016; Chest Single View dated 01/27/2016 FINDINGS: Lines: None. Lungs: No evidence of edema or pneumonia. Pleural: No significant pleural effusions or pneumothorax. Cardiac: The heart size is within normal limits. Bones: No acute fractures. Other: IMPRESSION: No acute cardiopulmonary disease.
== END 2021-09-12 03:05 | disposition home or self-care (01) ==
LOC: ER 23:40
DX: I10 Essential (primary) hypertension (principal)
CPT/HCPCS: 93005; 85025; 80048; 36415; 83735; 85610; 80076; 84484; 83880; 71045; 99284; J7040

== ENCOUNTER 2022-04-03 22:50 | Emergency (ER) | payer OTHER ==
--- OUTSIDE RECORDS SUMMARY | 2022-04-03 22:56 | XMS REPORT | Continuity of Care Document ---
:1965 Author Organization [facility] t Address [address] [place] [address] Care Team Providers Name Role Phone BEL RAI Primary Care Physician Unavailable Bel Rai Attending Clinician Unavailable KELLI CORREA Attending Clinician Unavailable Rock Alfaro MD Attending Clinician ROCK ALFARO Attending Clinician Unavailable ROCK ALFARO Attending Clinician Unavailable Rock Alfaro MD Attending Clinician Enmanuel Lopez MD Attending Clinician Zev Underwood Attending Clinician Kelli Correa MD Attending Clinician Kelsey Diaz MD Attending Clinician [phone] Chris Pavon MD Attending Clinician KEN PATTON Attending Clinician Unavailable Kelli Correa MD Attending Clinician KELLI CORREA Admitting Clinician Unavailable ROCK ALFARO Admitting Clinician Unavailable Payers Payer Name Policy Type Policy Number Effective Date Expiration Date Greg MALAVE HMOPOS SELECT [id number] 2020 PRETP 00:00:00 TOTALCARE SNP [id number] MEDICARE HMO-CIGNA MEDICARE PART A \\T\\ [id number] B - MEDICARE CIG[employer] [facility] [id number] 2020 HMO 00:00:00 Problems Condition Condition Condition Status Onset Resolution Last Treating Co mments Source Name Details Category Date Date Treatment Clinician Date Type 2 Type 2 Disease Active 2020-07 [facility] diabetes diabetes 2-16 Colleg e mellitus, mellitus, 00:00: of without without 00 Medicin long-term long-term e current current use of use of insulin insulin Hypertensi Hypertensi Disease Active 2020-07 [facility] due to on due to 2-16 [facility] endocrine endocrine 00:00: of disorder disorder 00 Medici n e 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 1-30 [facility] fistula fistula [facility] Medical 00 Center Essential Essential Disease Active [facility] hypertensi hypertensi 8-10 Co llege on on 00:00: of 00 Medicin e Dyspnea on Dyspnea on Disease Active [facility] exertion exertion 8-10 Colleg e 00:00: of 00 Medicin e Nonspecifi Nonspecifi Disease Active [facility] abnormal c abnormal 8-10 Co llege electrocar electrocar 00:00: of diogram diogram 00 Medicin (ECG) (ECG) e (EKG) (EKG) Abnormal Abnormal Disease Active [facility] r stress stress 6-24 College test test 00:00: of 00 Medicin e Enterocuta Enterocuta Disease Active [facility] neous neous 4-29 [facility] fistula fistula 00:00: of 00 Medicin e Ventral Ventral Disease Active [facility] hernia hernia 4-29 College without without 00:00: of obstructio obstructio 00 Me dicin n or n or e gangrene gangrene Class 2 Class 2 Disease Active [facility] obesity obesity 4-29 College with body with body 00:00: of mass index mass index 00 Me dicin (BMI) of (BMI) of e 38.0 to 38.0 to 38.9 in 38.9 in adult adult Allergies, Adverse Reactions, Alerts Allergy Allergy Status Severity Reaction(s) Onset Inactive Treating Comm ents Source Name Type Date Date Clinician NO KNOWN Allergy [facility] Social History Social Habit Start Date Stop Date Quantity Comments Source Exposure to Not sure [facility] Colle e SARS-CoV-2 of Medicine (event) Alcohol intake 2021-06-15 2021-06-15 Ex-drinker [facility] 00:00[facility]00 [facility] Tobacco use and 2021-04-12 2021-04-[address] [facility] exposure 00:00:00 00:00:00 [facility] Center Sex Assigned At [address] [facility] 00:00:00 00:00:00 [facility] Center Smoking Status Start Date Stop Date Source Never smoked tobacco [facility] Medications Ordered Filled Start Stop Current Ordering Indication Dosage Frequency Signature Comments Components Source Medication Medication Date Date Medication? Clinician (SIG) Name Name metformin Yes 2 tablet [facility] (GLUCOPHAGE 03 with meal Col lege -XR) 500 MG 12:41: of XR tablet 08 Medicin e scopolamine 2020-07- No 1.5mg Place [address] (TRANSDERM- 08-22 12- patch (1.5 L ukes SCOP) 1 mg 00:00: 23:59 mg total) M edical over 3 days 00 :00 onto the Cent er patch skin every third day. glipiZIDE 2020-07 Yes 10mg Take [address] (GLUCOTROL) 2-06 by mouth 2 [facility] 10 MG 14:19: (two) Medical tablet 15 times Center daily before meals. losartan 2020-07 Yes 100mg QD Take [address] (COZAAR) 2-06 mg by [facility] 100 MG 14:19: mouth Medical tablet 15 daily. Center lovastatin 2020-07 Yes 40mg QD Take [address] (MEVACOR) 2-06 by mouth [facility] 40 MG 14:19: nightly. Medical tablet 15 Center metFORMIN 2020-07 Yes 1000mg Take 1,[address] (GLUCOPHAGE 2-06 mg by [facility] ) 1000 MG 14:19: mouth 2 Medic al tablet 15 (two) Center times daily with breakfast and dinner. ibuprofen 2020-07- No 100mg Take [address] (ADVIL,MOTR 08-21 12- mg by [facility] IN) 100 MG 12:02: 00:00 mouth Medic al tablet 21 :00 every 6 Center (six) hours as needed for Fever. acetaminoph 2020-07 No 650mg Take [address] en 08-21 tablets [facility] (TYLENOL) 00:00: 23:59 (650 mg Medi jonathan 325 MG 00 :00 total) by Center tablet mouth every 6 (six) hours as needed for Pain for up to 360 days. ibuprofen 2020-07 No 200mg Take [address] (ADVIL,MOTR 08-21 tablet [facility] IN) 200 MG 00:00: 23:59 (200 mg Med ical tablet 00 :00 total) by Center mouth every 6 (six) hours as needed for Pain for up to 10 days. docusate 2020-07- No 100mg Take 1 [facility] t sodium 08-21 capsule [facility] (COLACE) 00:00: 23:59 (100 mg Medic al 100 MG 00 :00 total) by Center capsule mouth 2 (two) times daily as needed for Constipati on for up to 10 days. ondansetron 2020-07- No 4mg Take [address] (ZOFRAN) 4 08-21 tablet (4 [facility] es MG tablet 00:00: 23:59 mg total) Me dical 00 :00 by mouth 3 Center (three) times daily as needed for Nausea for up to 7 days. polyethylen 2020-07- No 17g Take [address] e glycol 08-21 by mouth [facility] (GLYCOLAX) 00:00: 23:59 daily as Me dical 17 gram 00 :00 needed for Center packet up to 3 days. Nutritional 2020-07 Yes 1{can} Take 1 Can [facility] Supplements 1-18 by mouth 2 Co llege (CHENG) 00:00: times of PACK 00 daily Medicin (with e meals). With or without meals Nutritional 2020-07 Yes 1{can} Take 1 Can [facility] Supplements 1-18 by mouth 2 Co llege (CHENG) 00:00: times of PACK 00 daily Medicin (with e meals). With or without meals Nutritional 2020-07 202- No 1{can} Take 1 Can [facility] Supplements 1-18 -03 by mouth 2 C [facility] (CHENG) 00:00: 00:00 times of PACK 00 :00 daily Medicin (with e meals). With or without meals Na 0 2020- No 177mL Take 177 [facility] Sulfate-K [...] HOURS e UNTIL ALL TAKEN VICTOZA 18 Yes INJECT [facility] r MG/3ML SOPN 4-13 0.6MG [place] 00:00: UNDER THE of 00 SKIN DAILY Medicin FOR ONE e WEEK THEN 1.2MG DAILY DIRECTED (MAX OF 1.8MG ONCE A DAY) VICTOZA 18 Yes INJECT Baylo r MG/3ML SOPN 4-13 0.6MG College 00:00: UNDER THE of 00 SKIN DAILY Medicin FOR ONE e WEEK THEN 1.2MG DAILY DIRECTED (MAX OF 1.8MG ONCE A DAY) VICTOZA 18 0 2020- No INJECT [facility]l or MG/3ML SOPN [...] MINUTES BEFORE BREAKFAST glipiZIDE Yes TAKE 1 [facility] (GLUCOTROL) 4-01 TABLET BY Col lege 10 MG 00:00: MOUTH of tablet 00 TWICE Medicin DAILY 30 e MINUTES BEFORE BREAKFAST glipiZIDE Yes TAKE 1 [facility] (GLUCOTROL) 4-01 TABLET BY Col lege 10 MG 00:00: MOUTH of tablet 00 TWICE Medicin DAILY 30 e MINUTES BEFORE BREAKFAST glipiZIDE Yes TAKE 1 [facility] (GLUCOTROL) 4-01 TABLET BY Col lege 10 MG 00:00: MOUTH of tablet 00 TWICE Medicin DAILY 30 e MINUTES BEFORE BREAKFAST glipiZIDE Yes TAKE 1 [facility] (GLUCOTROL) 4-01 TABLET BY Col lege 10 MG 00:00: MOUTH of tablet 00 TWICE Medicin DAILY 30 e MINUTES BEFORE BREAKFAST metformin Yes TAKE 2 [facility] (GLUCOPHAGE 3-10 TABLETS BY Co llege -XR) 500 MG 00:00: MOUTH of XR tablet 00 TWICE Medicin DAILY WITH e MEALS metformin Yes TAKE 2 [facility] (GLUCOPHAGE 3-10 TABLETS BY Co llege -XR) 500 MG 00:00: MOUTH of XR tablet 00 TWICE Medicin DAILY WITH e MEALS metformin Yes TAKE 2 [facility] (GLUCOPHAGE 3-10 TABLETS BY Co llege -XR) [...] TAKE 1 [facility] (COZAAR) 2-13 TABLET BY Shing e 100 MG 00:00: MOUTH ONCE of tablet 00 DAILY Medicin e losartan Yes TAKE 1 [facility] (COZAAR) 2-13 TABLET BY Colleg e 100 MG 00:00: MOUTH ONCE of tablet 00 DAILY Medicin e losartan Yes TAKE 1 [facility] (COZAAR) 2-13 TABLET BY Colleg e 100 MG 00:00: MOUTH ONCE of tablet 00 DAILY Medicin e losartan Yes TAKE 1 [facility] (COZAAR) 2-13 TABLET BY Colleg e 100 [...] e MEAL FOR 90 DAYS Victoza Victoza 2020- No Bel Inject 0.6 Common 02-1229 Rai mg/day x 1 [facility] 00:00: 00:00 week then - [facility] 00 :[address] mg[facility]day. [facility] Max 1.8 Medical mg/day [employer] Hydrocortis Hydrocortis 2020- No Bel 1 Common one one 02-12 08-14 Rai applicatio Spirit 00:00: 00:00 n - CHI 00 :00 [facility] Ketoconazol Ketoconazol 2020-0 2020- No Bel 1 Common e e 02-1214 Rai applicatio Spirit 00:00: 00:00 n - CHI 00 :00 [facility] Stacy Stacy Yes Bel USE ONE Common Contour Contour Rai STRIP TO Spir it Next Test Next Test CHECK - CH I GLUCOSE [facility] Lovastatin Lovastatin Yes Bel 1 tablet Common Rai with the Spirit evening - CHI meal [facility] Losartan Losartan Yes Bel 1 tablet C ommon Potassium Potassium Rai Spir it - [facility] GlipiZIDE GlipiZIDE Yes Bel 1 tablet Common Rai 30 minutes Spirit before - CHI breakfast [facility] MetFORMIN MetFORMIN Yes Bel 2 tablet Common HCl ER HCl ER Rai with meal Spiri t - [facility] Immunizations Ordered Immunization Filled Immunization Date Status Commen ts Source Name Name Willa SARS-CoV-2 2020-11-[address] [facility] Vaccination 00:00:00 of Medicine Moderna SARS-CoV-2 2020-11-02 [address] [facility] Vaccination 00:00:00 of Medicine Moderna SARS-CoV-2 2020-09-29 Completed [facility] Vaccination 00:00:00 of Medicine Moderna SARS-CoV-2 2020-09-29 Completed [facility] Vaccination 00:00:00 of Medicine Vital Signs Vital Name Observation Time Observation Value Comments Source HEIGHT 2021-04-15 14:15:00 175.3 cm WEIGHT 2021-04-15 14:15:00 113.9 kg HEIGHT 2021-04-12 10:44:00 175.3 cm WEIGHT 2021-04-12 10:44:00 113.399 kg Systolic blood 2021-08-18 18:41:00 156 mm[Hg] [facility] pressure Medicine Diastolic blood 2021-08-18 18:41:00 112 mm[Hg] [facility] of pressure Medicine Heart rate 2021-08-18 18:41:00 86 /min [facility] Body height 2021-08-18 18:41:00 175.3 cm [facility] Body weight 2021-08-18 18:41:00 119.296 kg [facility] BMI 2021-08-18 18:41:00 38.84 kg/m2 [facility] Systolic blood 2021-06-30 16:25:00 150 mm[Hg] [facility] pressure Medicine Diastolic blood 2021-06-30 16:25:00 96 mm[Hg] [facility] pressure Medicine Heart rate 2021-06-30 16:25:00 75 /min [facility] Body height 2021-06-30 16:25:00 175.3 cm [facility] Body weight 2021-06-30 16:25:00 119.296 kg [facility] BMI 2021-06-30 16:25:00 38.84 kg/m2 [facility] HEIGHT 2021-06-14 10:05:00 175.3 cm WEIGHT 2021-06-14 [...] kg Systolic blood 2021-06-02 15:05:00 156 mm[Hg] [facility] pressure Medicine Diastolic blood 2021-06-02 15:05:00 102 mm[Hg] [facility] pressure Medicine Heart rate 2021-06-02 15:05:00 80 /min [facility] Medicine Respiratory rate 2021-06-02 15:05:00 16 /min [facility] Body height 2021-06-02 15:05:00 175.3 cm [facility] Medicine Body weight 2021-06-02 15:05:00 119.296 kg [facility] Medicine BMI 2021-06-02 15:05:00 38.84 kg/m2 [facility] Medicine HEIGHT 2021-04-15 14:15:00 175.3 cm WEIGHT 2021-04-15 14:15:00 113.9 kg HEIGHT 2021-04-12 10:44:00 175.3 cm WEIGHT 2021-04-12 10:44:00 113.399 kg HEIGHT 2021-04-15 14:15:00 175.3 cm WEIGHT 2021-04-15 14:15:00 113.9 kg HEIGHT 2021-04-12 10:44:00 175.3 cm WEIGHT 2021-04-12 10:44:00 113.399 kg Systolic blood 2021-01-24 19:43:00 113 mm[Hg] [facility] pressure Medicine Diastolic blood 2021-01-24 19:43:00 81 mm[Hg] [facility] Medicine Heart rate 2021-01-24 19:43:00 86 /min [facility] Body temperature 2021-01-24 19:43:00 36.61 Gabby [facility] Body height 2021-01-24 19:43:00 175.3 cm [facility] Body weight 2021-01-24 19:43:00 115.577 kg [facility] BMI 2021-01-24 19:43:00 37.63 kg/m2 [facility] Medicine Systolic blood 2021-01-06 16:27:00 123 mm[Hg] [facility] Medicine Diastolic blood 2021-01-06 16:27:00 88 mm[Hg] [facility] Medicine Heart rate 2021-01-06 16:27:00 89 /min [facility] Medicine Body height 2021-01-06 16:27:00 175.3 cm [facility] Body weight 2021-01-06 16:27:00 117.482 kg [facility] BMI 2021-01-06 16:27:00 38.25 kg/m2 [facility] Medicine Systolic blood 2021-06-20 11:46:00 141 mm[Hg] [facility] Diastolic blood 2021-06-20 11:46:00 86 mm[Hg] [facility] Heart rate 2021-06-20 11:46:00 81 /min [facility] Body temperature 2021-06-20 11:46:00 36.56 Gabby [facility] Respiratory rate 2021-06-20 11:46:00 18 /min [facility] Oxygen saturation in 2021-06-20 11:46:00 97 /min [facility] Arterial blood by Medical Ce nter Pulse oximetry Body height 2021-06-14 10:05:00 175.3 cm [facility] Body weight 2021-06-14 10:05:00 113.3 kg [facility] BMI 2021-06-14 10:05:00 36.87 kg/m2 [facility] Procedures Procedure Date / Time Performing Clinician Source Performed POCT-GLUCOSE METER 2021-06-20 11:49:[address] [facility] POCT-GLUCOSE METER 2021-06-20 07:30:00 Angelina [facility] CBC W/PLT COUNT & AUTO 2021-06-20 03:54:00 Tonja [facility] CBC W/PLT COUNT & AUTO 2021-06-20 03:54:00 Tonja [facility] BASIC METABOLIC PANEL (7) 2021-06-20 03:54:00 Queenie Evangelista Cathleen [facility] MAGNESIUM 2021-06-20 03:54:00 Queenie Evangelista [facility] PHOSPHORUS 2021-06-20 03:54:00 Tonja [facility] POCT-GLUCOSE METER 2021-06-19 21:03:[address] [facility] POCT-GLUCOSE METER 2021-06-19 16:47:00 Angelina [facility] POCT-GLUCOSE METER 2021-06-19 12:29:[address] [facility] POCT-GLUCOSE METER 2021-06-19 10:01:[address] [facility] CBC W/PLT COUNT & AUTO 2021-06-19 03:23:00 Queenie Evangelista [facility] BASIC METABOLIC PANEL (7) 2021-06-19 03:23:[address] [facility] MAGNESIUM 2021-06-19 03:23:00 Tonja [facility] PHOSPHORUS 2021-06-19 03:23:00 Tonja [facility] CBC W/PLT COUNT & AUTO 2021-06-19 03:23:00 Tonja [facility] POCT-GLUCOSE METER 2021-06-18 21:12:[address] [facility] POCT-GLUCOSE METER 2021-06-18 16:16:00 Angelina [facility] POCT-GLUCOSE METER 2021-06-18 11:40:00 Angelina [facility] POCT-GLUCOSE METER 2021-06-18 07:18:[address] [facility] CBC W/PLT COUNT & AUTO 2021-06-18 03:59:00 Tonja [facility] BASIC METABOLIC PANEL (7) 2021-06-18 03:59:00 Tonja [facility] MAGNESIUM 2021-06-18 03:59:00 Tonja [facility] PHOSPHORUS 2021-06-18 03:59:00 Ismaci [facility] CBC W/PLT COUNT & AUTO 2021-06-18 03:59:00 Tonja [facility] POCT-GLUCOSE METER 2021-06-17 21:05:00 Angelina [facility] POCT-GLUCOSE METER 2021-06-17 16:28:[address] [facility] POCT-GLUCOSE METER 2021-06-17 11:22:00 Angelina [facility] POCT-GLUCOSE METER 2021-06-17 06:25:00 Angelina [facility] CBC W/PLT COUNT & AUTO 2021-06-17 05:05:00 Tonja [facility] BASIC METABOLIC PANEL (7) 2021-06-17 05:05:00 Tonja [facility] MAGNESIUM 2021-06-17 05:05:00 Tonja [facility] PHOSPHORUS 2021-06-17 05:05:00 Tonja [facility] CBC W/PLT COUNT & AUTO 2021-06-17 05:05:00 Ismasandie [facility] VANCOMYCIN LEVEL, TROUGH 2021-06-16 23:52:00 Anthony Drew [facility] POCT-GLUCOSE METER 2021-06-16 22:50:00 Angelina [facility] POCT-GLUCOSE METER 2021-06-16 18:13:00 Angelina [facility] POCT-GLUCOSE METER 2021-06-16 11:16:00 Angelina [facility] POCT-GLUCOSE METER 2021-06-16 06:05:00 Angelina [facility] CBC W/PLT COUNT & AUTO 2021-06-16 05:02:00 Tonja [facility] BASIC METABOLIC PANEL (7) 2021-06-16 05:02:00 Ismasandie [facility] MAGNESIUM 2021-06-16 05:02:00 Ismasandie [facility] PHOSPHORUS 2021-06-16 05:02:00 Kosandie [facility] CBC W/PLT COUNT & AUTO 2021-06-16 05:02:00 [facility]SE [facility] 2021-06-16 00:14:00 Angelina [facility] POCT-GLUCOSE METER 2021-06-15 18:16:00 Angelina [facility] POCT-GLUCOSE METER 2021-06-15 05:25:00 Angelina [facility] CBC W/PLT COUNT & AUTO 2021-06-15 05:04:00 Ismasandie [facility] BASIC METABOLIC PANEL (7) 2021-06-15 05:04:00 Tonja [facility] MAGNESIUM 2021-06-15 05:04:00 Tonja [facility] PHOSPHORUS 2021-06-15 05:04:00 Tonja [facility] CBC W/PLT COUNT & AUTO 2021-06-15 05:04:00 Tonja [facility] (CELLAVISION MANUAL DIFF) 2021-06-15 05:04:00 Tonja [facility] XR ABDOMEN / KUB 1 VIEW 2021-06-14 21:42:00 Angelina Rock [facility] POCT-GLUCOSE METER 2021-06-14 21:39:00 Angelina [facility] TISSUE EXAM 2021-06-14 18:14:00 Rock Alfaro [facility] POCT-GLUCOSE METER 2021-06-14 17:35:[address] [facility] LAPAROTOMY, EXPLORATORY 2021-06-14 14:07:00 Angelina Rock [facility] RESECTION, SMALL INTESTINE 2021-06-14 14:07:00 Rock Alfaro [facility] HERNIORRHAPHY, VENTRAL 2021-06-14 14:07:00 Angelina [facility] ABORH, MANUAL 2021-06-14 11:16:00 Payton Zeng [facility] HEMOGLOBIN 2021-06-14 11:03:00 Booker Dorantes [facility] ELECTROLYTE PANEL 2021-06-14 11:03:00 Booker Dorantes [facility] BUN AND CREATININE W/RATIO 2021-06-14 11:03:00 Booker Dorantes and [facility] GLUCOSE 2021-06-14 11:03:00 Booker Dorantes [facility] TYPE AND SCREEN, AUTOMATED 2021-06-14 11:03:00 Tonja Queenie Connolly [facility] HEMOGLOBIN A1C 2021-06-02 16:17:00 Grace Laguna [facility] HEMOGLOBIN A1C 2021-06-02 10:17:00 [facility] REPORT OF PROCEDURE - 2021-04-15 16:34:59 [facility] ENDOSCOPY URL [facility] TISSUE EXAM 2021-04-15 16:04:[address] [facility] COLONOSCOPY, WITH 2021-04-15 15:51:00 [facility] es POLYPECTOMY [facility] POCT-GLUCOSE METER 2021-04-15 14:19:00 [facility] SARS-COV2/RT-PCR ([facility] & REF 2021-04-13 12:38:00 [facility] LABS) [facility] ELECTROCARDIOGRAM COMPLETE 2021-02-22 18:01:[address] [facility] AMB REF TO CARDIOLOGY [facility] 2021-01-06 12:21:46 [facility] AMB REF TO COLORECTAL SURG 2021-01-06 12:21:46 B [facility] Plan of Care Planned Activity Planned Date Details Comments Source Future Scheduled 2031-04-15 Screening for malignant [facility] Test 00:00:00 neoplasm of colon Medical Ce nter (procedure) [code = 312907926] Future Scheduled 2031-04-15 Screening for malignant [facility] Test 00:00:00 neoplasm of colon Medical Ce nter (procedure) [code = 782160391] Future Scheduled 2022-03-16 INFLUENZA VACCINE (#1) [facility] Test 00:00:00 [code = INFLUENZA VACCINE Me dical Center (#1)] Future Scheduled 2021-08-29 Screening for malignant [facility] Test 09:47:48 neoplasm of colon Medicine (procedure) [code = 860416793] Future Scheduled 2021-08-29 Pneumococcal Combined (1 [facility] Test 09:47:48 of 2 - PPSV23) [code = Medic ine Pneumococcal Combined (1 of 2 - PPSV23)] Future Scheduled 2021-08-29 TETANUS SHOT (ADULT) [facility] Test 09:47:48 [code = TETANUS SHOT Medicin e (ADULT)] Future Scheduled 2021-08-29 Diabetic foot examination [facility] Test 09:47:48 (regime/therapy) [code = Med icine [id number]] Future Scheduled 2021-08-29 ANNUAL DIABETIC [facility] ollege of Test 09:47:48 RETINOPATHY SCREENING Medici anastasiia [code = ANNUAL DIABETIC RETINOPATHY SCREENING] Future Scheduled 2021-08-29 Hepatitis C screening [facility] 09:47:48 (procedure) [code = Medicine [id number]] Future Scheduled 2021-08-29 Human immunodeficiency B [facility] Test 09:47:48 virus screening Medicine (procedure) [code = 755332491] Future Scheduled 2021-08-29 ZOSTER VACCINE (1 of 2) [facility] 09:47:48 [code = ZOSTER VACCINE (1 Me dicine of 2)] Future Scheduled 2021-08-29 FLU VACCINE > 6 MONTHS B [facility] Test 09:47:48 [code = FLU VACCINE > 6 Medi cine MONTHS] Future Scheduled 2021-08-29 COVID-19 Vaccine (3 - Ba [facility] Test 09:47:48 Booster for Moderna Medicine series) [code = COVID-19 Vaccine (3 - Booster for Moderna series)] Future Scheduled 2021-08-29 MEDICARE AWV (Initial) B [facility] Test 09:47:48 [code = MEDICARE AWV Medicin e (Initial)] Future Scheduled 2021-08-29 BMI FOLLOW UP PLAN [code [facility] Test 09:47:48 = BMI FOLLOW UP PLAN] Medici ne Future Scheduled 2021-07-17 MEDICARE ANNUAL WELLNESS [facility] Test 00:00:00 (YEAR 2 or FIRST YEAR if Med ical Center no IPPE) [code = MEDICARE ANNUAL WELLNESS (YEAR 2 or FIRST YEAR if no IPPE)] Future Scheduled 2021-07-[address] [facility] Test 00:00:00 (12+) [code = DEPRESSION Med [facility] Center SCREENING (12+)] Future Scheduled 2021-06-30 BMI FOLLOW UP PLAN [code [facility] of Test 10:35:03 = BMI FOLLOW UP PLAN] Medici ne Future Scheduled 2021-06-30 Screening for malignant [facility] Test 10:25:26 neoplasm of colon Medicine (procedure) [code = 157893376] Future Scheduled 2021-06-30 TETANUS SHOT (ADULT) [facility] Test 10:25:26 [code = TETANUS SHOT Medicin e (ADULT)] Future Scheduled 2021-06-30 Diabetic foot examination [facility] Test 10:25:26 (regime/therapy) [code = Med icine [id number]] Future Scheduled 2021-06-30 ANNUAL DIABETIC [facility] C olle of Test 10:25:26 RETINOPATHY SCREENING Medici ne [code = ANNUAL DIABETIC RETINOPATHY SCREENING] Future Scheduled 2021-06-30 Hepatitis C screening [facility] Test 10:25:26 (procedure) [code = Medicine [id number]] Future Scheduled 2021-06-30 Human immunodeficiency B [facility] Test 10:25:26 virus screening Medicine (procedure) [code = 493559998] Future Scheduled 2021-06-30 ZOSTER VACCINE (1 of 2) [facility] Test 10:25:26 [code = ZOSTER VACCINE (1 Me dicine of 2)] Future Scheduled 2021-06-30 FLU VACCINE > 6 MONTHS B [facility] Test 10:25:26 [code = FLU VACCINE > 6 Medi cine MONTHS] Future Scheduled 2021-06-30 COVID-19 Vaccine (3 - [facility] Test 10:25:26 Booster for Moderna Medicine series) [code = COVID-19 Vaccine (3 - Booster for Moderna series)] Future Scheduled 2021-06-30 MEDICARE AWV (Initial) B [facility] Test 10:25:26 [code = MEDICARE AWV Medicin e (Initial)] Future Scheduled 2021-06-12 BMI FOLLOW UP PLAN [code [facility] Test :06: = BMI FOLLOW UP PLAN] Medici ne Future Scheduled 2021-06-12 Screening for malignant [facility] Test :06: neoplasm of colon Medicine (procedure) [code = 066969181] Future Scheduled 2021-06-12 TETANUS SHOT (ADULT) [facility] :06: [code = TETANUS SHOT Medicin e (ADULT)] Future Scheduled 2021-06-12 Diabetic foot examination [facility] :: (regime/therapy) [code = Med icine [id number]] Future Scheduled 2021-06-12 ANNUAL DIABETIC [facility] :: RETINOPATHY SCREENING Medici ne [code = ANNUAL DIABETIC RETINOPATHY SCREENING] Future Scheduled 2021-06-12 Hepatitis C screening [facility] :: (procedure) [code = Medicine 565528729] Future Scheduled 2021-06-12 Human immunodeficiency B [facility] :: virus screening Medicine (procedure) [code = 611559344] Future Scheduled 2021-06-12 ZOSTER VACCINE (1 of 2) [facility] :: [code = ZOSTER VACCINE (1 Me dicine of 2)] Future Scheduled 2021-06-12 FLU VACCINE > 6 MONTHS B [facility] Test :: [code = FLU VACCINE > 6 Medi cine MONTHS] Future Scheduled 2021-06-12 COVID-19 Vaccine (3 - Ba [facility] Test :: Booster for Moderna Medicine series) [code = COVID-19 Vaccine (3 - Booster for Moderna series)] Future Scheduled 2021-06-12 MEDICARE AWV (Initial) B [facility] Test :: [code = MEDICARE AWV Medicin e (Initial)] Future Scheduled 2021-04-04 COVID-19 VACCINE (3 - [facility] Booster for [facility] series) [code = COVID-19 VACCINE (3 - Booster for Moderna series)] Future Scheduled 2021-01-25 Screening for malignant [facility] Test 16:48:09 neoplasm of colon Medicine (procedure) [code = 454470680] Future Scheduled 2021-01-25 COVID-19 Vaccine (1) [facility] of Test 16:48:09 [code = COVID-19 Vaccine Med icine (1)] Future Scheduled 2021-01-25 TETANUS SHOT (ADULT) [facility] of Test 16:48:09 [code = TETANUS SHOT Medicin e (ADULT)] Future Scheduled 2021-01-25 Hepatitis C screening Ba [facility] of Test 16:48:09 (procedure) [code = Medicine 700585545] Future Scheduled 2021-01-25 Human immunodeficiency B [facility] of Test 16:48:09 virus screening Medicine (procedure) [code = 107388022] Future Scheduled 2021-01-25 ZOSTER VACCINE (1 of 2) [facility] of Test 16:48:09 [code = ZOSTER VACCINE (1 Me dicine of 2)] Future Scheduled 2021-01-25 MEDICARE AWV (Initial) B [facility] Test 16:48:09 [code = MEDICARE AWV Medicin e (Initial)] Future Scheduled 2021-01-25 FLU VACCINE > 6 MONTHS B [facility] Test 16:48:09 [code = FLU VACCINE > 6 Medi cine MONTHS] Future Scheduled 2021-01-25 BMI FOLLOW UP PLAN [code [facility] of Test 16:48:09 = BMI FOLLOW UP PLAN] Medici ne Future Scheduled 2021-01-19 Screening for malignant [facility] of Test 14:46:06 neoplasm of colon Medicine (procedure) [code = 586565427] Future Scheduled 2021-01-19 COVID-19 Vaccine (1) [facility] of Test 14:46:06 [code = COVID-19 Vaccine Med icine (1)] Future Scheduled 2021-01-19 TETANUS SHOT (ADULT) [facility] of Test 14:46:06 [code = TETANUS SHOT Medicin e (ADULT)] Future Scheduled 2021-01-19 Hepatitis C screening Ba [facility] of Test 14:46:06 (procedure) [code = Medicine 247785281] Future Scheduled 2021-01-19 Human immunodeficiency B [facility] of Test 14:46:06 virus screening Medicine (procedure) [code = 104243058] Future Scheduled 2021-01-19 ZOSTER VACCINE (1 of 2) [facility] Test 14:46:06 [code = ZOSTER VACCINE (1 Me dicine of 2)] Future Scheduled 2021-01-19 MEDICARE IPPE (WELCOME TO [facility] Test 14:46:06 MEDICARE) [code = Medicine MEDICARE IPPE (WELCOME TO MEDICARE)] Future Scheduled 2021-01-19 FLU VACCINE > 6 MONTHS B [facility] Test 14:46:06 [code = FLU VACCINE > 6 Medi cine MONTHS] Future Scheduled 2021-01-19 BMI FOLLOW UP PLAN [code [facility] Test 14:46:06 = BMI FOLLOW UP PLAN] Medici ne Future Scheduled 2014 SHINGLES VACCINES ([address] [facility] Test 00:00:00 2) [code = SHINGLES Medical Center VACCINES (1 of 2)] Future Scheduled 1999-12-24 Lipid panel (procedure) [facility] Test 00:00:00 [code = 36477785] Medical Ce nter Future Scheduled 1983-12-24 DTAP/TDAP/TD VACCINES ([address] [facility] Test 00:00:00 - Tdap) [code = Medical Cent er DTAP/TDAP/TD VACCINES (1 - Tdap)] Future Scheduled 1982 HEPATITIS C SCRE[facility]ING [facility] Test 00:00:00 [code = HEPATITIS C Medical Center SCREENING] Future Scheduled 1964 CT Colonography (combo) [facility] Test 00:00:00 [code = CT Colonography [facility] (combo)] Future Scheduled 1964 Screening for malignant [facility] Test 00:00:00 neoplasm of colon Medical Ce nter (procedure) [code = 514589657] Future Scheduled 1964 Screening for malignant [facility] Test 00:00:00 neoplasm of colon Medical Ce nter (procedure) [code = 735659674] Future Scheduled 1964 Sigmoidoscopy [code = [facility] Test 00:[facility]:00 Sigmoidoscopy] Medical Cente r Encounters Start End Encounter Admission Attending Care Care Encounter Source Date/Time Date/Time Type Type Clinicians Facility Department ID 2022-03-28 Outpatient MUSHTAQ Rai [facility] [id number] Common 12:48:00 [facility] [address] [facility] 2021-08-17 Outpatient Fredi [facility] [id number] Common 12:44:00 [facility] 2021-08-10 Outpatient Rai, STLMLC STLMLC [id number] Common 14:15:45 [place] [address] [facility] 2021-08-10 Outpatient Rai, STLMLC STLMLC [id number] Common 14:08:22 [place] [address] [facility] 2021-08-10 Outpatient Rai, STLMLC STLMLC [id number] Common 14:01:17 [place] [address] [facility] 2021-08-10 Outpatient Rai, STLMLC STLMLC [id number] Common 13:54:13 [place] [address] [facility] 2021-08-10 Outpatient Rai, STLMLC STLMLC [id number] Common 13:53:56 [place] 9[address] [facility] 2021-08-10 Outpatient Rai, STLMLC STLMLC [id number] Common 13:48:07 [place] [address] [facility] 2021-08-10 Outpatient Rai, STLMLC STLMLC [id number] Common 13:47:10 [place] [address] [facility] 2021-08-10 Outpatient Rai, STLMLC STLMLC [id number] Common 13:45:16 [place] [address] [facility] 2021-08-10 Outpatient Rai, STLMLC STLMLC [id number] Common 13:44:17 [place] [address] [facility] 2021-08-10 Outpatient Rai, STLMLC STLMLC [id number] Common 13:34:14 [place] 115[address] [facility] 2021-08-10 Outpatient Rai, STLMLC STLMLC [id number] Common 12:26:47 [place] [address] [facility] 2021-08-10 Outpatient Rai, STLMLC STLMLC [id number] Common 11:45:27 [place] [address] [facility] 2021-08-10 Outpatient Rai, STLMLC STLMLC [id number] Common 11:17:40 [place] 6[address] [facility] 2021-08-10 Outpatient Rai, STLMLC STLMLC [id number] Common 11:17:32 [place] [address] [facility] 2021-08-10 Outpatient Rai, STLMLC STLMLC [id number] Common 11:17:26 [place] [address] [facility] 2021-04-24 Outpatient BISHOP-EDUARDO [facility] Surgery [id number] [facility] 11:15:13 LKELLI 2022-03-29 2022-03-29 ambulatory STLMLC STLMLC [id number] Common 00:00:00 00:00:00 [facility] 2022-03-13 2022-03-13 ambulatory STLMLC STLMLC [id number] Common 00:00:00 00:00:00 [facility] 2022-02-21 2022-02-21 ambulatory STLMLC STLMLC [id number] Common 00:00:00 00:00:00 [facility] 2022-02-10 2022-02-10 ambulatory STLMLC STLMLC [id number] Common 00:00:00 00:00:00 [facility] 2022-01-13 2022-01-13 ambulatory STLMLC STLMLC [id number] Common 00:00:00 00:00:00 [facility] 2022-01-13 2022-01-13 ambulatory STLMLC STLMLC [id number] Common 00:00:00 00:00:00 [facility] 2021-12-14 2021-12-14 ambulatory STLMLC STLMLC [id number] Common 00:00:00 00:00:00 [facility] 2021-09-29 2021-09-29 ambulatory STLMLC STLMLC [id number] Common 00:00:00 00:00:00 [facility] 2021-09-14 2021-09-14 ambulatory STLMLC STLMLC [id number] Common 00:00:00 00:00:00 [facility] 2021-09-12 2021-09-12 ambulatory STLMLC STLMLC [id number] Common 00:00:00 00:00:00 [facility] 2021-09-09 2021-09-09 ambulatory STLMLC STLMLC [id number] Common 00:00:00 00:00:00 [facility] 2021-08-18 2021-08-18 Office CHRISS Alfaro [id number] [facility] 12:30:00 16:32:23 Visit Rock Estrada AMBULATOR 350.1.13.21 College Y 0.2.7.2.686 of [id number] [facility] 815 e 2021-08-16 2021-08-16 ambulatory STLMLC STLMLC [id number] Common 00:00:00 00:00:00 [facility] 2021-08-15 2021-08-15 ambulatory STLMLC STLMLC [id number] Common 00:00:00 00:00:00 [facility] 2021-06-30 2021-06-30 Office CRHISS ALFARO [id number] [facility] 10:16:32 13:03:36 Visit ROCK AMBULATOR 350.1.13.21 College Y 0.2.7.2.686 of [id number] [facility] 815 e 2021-06-14 2021-06-20 Inpatient [facility] Surgery [id number] [facility] 09:25:00 14:19:00 ROCK 2021-06-14 2021-06-20 [facility] [id number] 09:25:00 14:19:00 Encounter Rock [facility] 2021-06-14 2021-06-[address] [facility] [id number] 14:22:00 21:25:00 Event Zev Earl [facility] 2021-06-14 2021-06-[address] [facility] [id number] 13:35:00 18:10:[address] [facility] 2021-06-14 2021-06-14 Travel [facility] [id number] [facility] 00:00:00 00:00:00 [facility] 2021-06-13 2021-06-13 Outpatient EL [facility] [id number] [facility] 12:03:32 23:59:00 2021-06-13 2021-06-13 [facility] [id number] 09:20:00 23:59:00 Encounter [facility] 2021-06-13 2021-06-13 Travel [facility] [id number] [facility] 00:00:00 00:00:00 [facility] 2021-06-10 2021-06-10 [facility] [id number] 23:59:00 23:59:00 Encounter [facility] 2021-06-10 2021-06-10 Outpatient [facility] [id number] [facility] 00:00:00 23:59:00 2021-06-02 2021-06-02 Office ANGELINA, CHRISS [id number] [place] [address] 08:48:10 14:00:14 Visit ROCK AMBULATOR 350.1.13.21 College Y 0.2.7.2.686 [id number] [facility] 815 e 2021-05-12 2021-05-12 [facility] [id number] Common 00:00:00 00:00:00 [facility] 2021-04-28 2021-04-28 Outpatient EL [facility] [id number] [facility] 00:00:00 00:00:00 2021-04-15 2021-04-15 [facility] [id number] 13:57:00 18:29:00 Encounter Kelli hickey [facility] 2021-04-15 2021-04-15 Surgery [facility] [id number] 16:00:00 17:00:00 l, Kelli [facility] 2021-04-15 2021-04-15 Anesthesia Kelsey Diaz [facility] [id number] [facility] 15:56:00 16:31:00 Event Chris Pavon [facility] 2021-04-15 2021-04-15 Travel [facility] [id number] [facility] 00:00:00 00:00:00 [facility] 2021-04-13 2021-04-13 [facility] [id number] 12:32:37 23:59:00 Encounter Kelli hickey [facility] 2021-04-13 2021-04-13 Outpatient EL [facility] [id number] [facility] 00:00:00 00:00:00 2021-04-12 2021-04-12 [facility] [id number] 10:25:00 23:59:00 Encounter [facility] 2021-04-12 2021-04-12 Outpatient EL [facility] [id number] [facility] 00:00:00 00:00:00 2021-04-12 2021-04-12 Travel [facility] [id number] [facility] 00:00:00 00:00:00 [facility] 2021-04-12 2021-04-12 Outpatient [facility] [id number] Common 00:00:00 00:00:00 [facility] 2021-03-15 2021-03-15 Outpatient [facility] [id number] Common 00:00:00 00:00:00 [facility] 2021-03-03 2021-03-03 [facility] [id number] [facility] 09:46:55 14:23:55 Adriana e of Medicin e 2021-02-22 2021-02-22 Outpatient CHRISS PATTON [facility] [id number] [facility] 09:56:07 12:40:53 KEN Wright e of Medicin e 2021-02-21 2021-02-21 Outpatient [facility] [id number] Common 00:00:00 00:00:00 [facility] 2021-02-16 2021-02-16 Outpatient STLMLC STLMLC [id number] Common 00:00:00 00:00:00 [facility] 2021-02-15 2021-02-15 Outpatient STLMLC STLMLC [id number] Common 00:00:00 00:00:00 [facility] 2021-02-09 2021-02-09 Outpatient STLMLC STLMLC [id number] Common 00:00:00 00:00:00 [facility] 2021-01-24 2021-01-24 Office Michael [facility] 1.2.840.114 [id number] [facility] 14:40:11 15:28:54 Visit Kelli hickey Laura 350.1.13.21 College 0.2.7.2.686 of [id number] [facility] 510 e 2021-01-20 2021-01-20 Outpatient EL [facility] [id number] [facility] 00:00:00 00:00:00 2021-01-06 2021-01-06 Office CHRISS ALFARO [id number] [id number] [facility] 11:18:00 13:02:56 Visit ROCK VARGAS 350.1.13.21 College Y 0.2.7.2.686 of [id number] [facility] 815 e 2020-12-14 2020-12-14 Outpatient STLMLC STLMLC [id number] Common 00:00:00 00:00:00 [facility] 2020-11-16 2020-11-16 Outpatient STLMLC STLMLC [id number] Common 00:00:00 00:00:00 [facility] 2020-11-11 2020-11-11 Outpatient CHRISS ALFARO [facility] [id number] [place] [address] 09:29:36 15:00:44 ROCK dunbar of Medicin e 2020-08-17 2020-08-17 Outpatient STLMLC STLMLC [id number] Common 00:00:00 00:00:00 [facility] 2020-08-17 2020-08-17 Outpatient STLMLC STLMLC [id number] Common 00:00:00 00:00:00 [facility] 2020-07-07 2020-07-07 Outpatient STLMLC STLMLC [id number] Common 00:00:00 00:00:00 [facility] 2020-07-05 2020-07-05 Outpatient STLMLC STLMLC [id number] Common 00:00:00 00:00:00 [facility] 2020-06-25 2020-06-25 Outpatient STLMLC STLMLC [id number] Common 00:00:00 00:00:00 [facility] 2020-05-17 2020-05-17 Outpatient STLMLC STLMLC [id number] Common 00:00:00 00:00:00 [facility] 2020-02-13 2020-02-13 Out[facility] [id number] Common 09:45:00 09:45:[address] [facility] 2020-01-12 2020-01-12 Outpatient [facility] [id number] Common 10:13:00 10:13:[address] [facility] 2019-10-27 2019-10-27 Outpatient [facility] [id number] Common 11:00:00 11:00:[address] [facility] 2019-10-23 2019-10-23 Outpatient [facility] [id number] Common 16:50:00 16:50:[address] [facility] 2018-02-01 2018-02-01 Outpatient [facility] [id number] Common 09:00:00 09:00:[address] [facility] [address] [facility] Results Test Description Test Time Test Comments Results Result Comments Source Tissue Exam 2021-06-22 10:59:33 Test Item Value Reference Range Interpretation Comme nts Case Report (test code = 104) Surgical Pathology Report Case: [id number] Authorizing Provider: Rock Alfaro MD Collected: 06/14/2021 06:14 PM Ordering Location: [facility] Received: 06/15/2021 09:56 AM SERVICES Pathologist: Eldon Sneed MD Specimen: Soft Tissue, Other, 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 DIAGNOSIS (test code = 3220) t2nywGIoADEat7bsSNRfuBGfDwOiUhIqUhRoGw dWMxIHtccnRmMVxlcGljOTYwMVxhbnNpXHNwbHRw Q5TtfunkSTqfCL5qMG2sxNnzfZRqgCYaDTXgNjNl d7wok096zEVip2gmBKBMvuwoaFb2lYziJ00hr6R8 UpukP11chVQjGCS8OUVeLPGrpMFoJDHkDIV2ALTx yQIoZ3vgQHSmMZ0nyvjqARmoUKadQWInaMH8MWKt gURjY6YpUZMcKMqkGUSdkvi8VxIpZo6phELlqVyp HCtoOAGlFSVvBGhfOMJyPeSgXJZYHNIILPyMTQ1E V4cGZiLSXiEGEL8CC4MAClWIUhVjLyuHSYCDFNyb AvQXLEDGLQ3NFspxLYZuZF2LHSJFU8RFZX1JT2EQ QKVDX8BKJQNbM9wCZDLAJBOAKPbOLJQKNEYJGLGY EgMWI3iLDqbvYXAtJNpJL1ABLJ2QCVMzAF8CP3EU FP6KXKMeP2fZWPWOJBYDRTgHRDIQFlbdNYTeQrLL NZZFFyYyHq2XDBNYQ1EFWACNWIKJAxHPFyTAT3pC NOUGROBYLE3VDFUlNHRjsmWIJKMYJTMOCSWJDFDF EN1CRZKLFGLWUK8gpTRevEpzntUdLCofj8JsTXje KNEzYR0usOkjTFKtKO5cGXVuX9fscR3sabo2XiXe ANVtKaM5ILYxjgO4Skl3JRVoPEzqs0xsi2LcMLZf WUi9bYqgJoKxURDwb7jtwsVoCuEyFRBxMWLdYGXj pHAkO830t2flt0dsgvZvaLF0YGGjGSJ2LMdmlfVa keL4FOzxhBXvYhM0CBmhspRwMNvobiNpghJoGag7 YBOcS786SGX6iSnlu2abUMX7UGTlPJVlFfYbFq9c fYAsV063VRHbZLNQZRSkqSg8SKXxulLnnoRdkYAH n537M142l2iuANZaaqZzaHnEusgot7nrZ354HQVd rLFdzuFkNtRcBYCqkBEhmCF3NMEfWN2ahfeyFEcn WYtdTBIlnkN7YXJrjMHdE3TyMDDgHX5mrykrLNR0 YFbgOFEhTBQ8CkVdINKar9Aoxly1HcEgoq6gja45 LGX7u9SmnZubNSZ6RQQ8RvVgCv0asLUzKKZoIU3s TqUweWNoFMGknt63nCryDNclCBX7CYUgbvFps7Xs h2byYoTcovNlY2hjS9OyKDFxVUAeEFUbKrMuwiCl l2Ytu9NzfSInvNj3b6wdLWAmUWAdaWkms2hxWNS3 UFDlnNMoI5shrI2vGEKfFZ7zvmxyb7isNAxnCJkw UDJajER6qsA2GIFcjGSyG6KbtQ3eCYFkWQdvPWJt fqq9MmWjLi5whWDnfIojGEctNbfyFTwwUOUffbJm bnRccGduZGVjXHBsYWluXHBsYWluXGYwXGZzMjRc cWxcbGFuZzEwMzNcaGljaFxmMVxkYmNoXGYxXGxv Z0iyFwZbPhGqUmv6HUKnnPNhTSOlDgt2KGHwqFUf GBQNdOafsZ3oJHEblOzquL4xcUD1GFJzcxWekJBI wQ5zRHMApT2mRjB5OHNbQaM7BQv0EJubpPAmnD9= CPT Code(s) (test code = 3147) p8vlaBReGWYeoKZ7BjLuJKGml7wok9TlqFQd cGFy UIzojYMqjfFsvk88sEM6iD51GX6hGMLjRtN9KRDn rmV5Ual7KVCjSVPlkGCsS243b5ikn0eiulMkxGD7 bZpfXJMhhpwcNeU0GXwiNEYriqevAVb2JRhcXJLz qNZ8SRTggZRhN0DrJAYtZA7dfca6HUW9OYdkCQAx RxB0IDRaeISaJJJuaQffNMuvl080FHP4QzGjBMRh qtXyvJaqbD2tVgWzBSE2KVVvC0jjHWF4 CLINICAL HISTORY (test code = 8685) h0fzsYJiYMTsdKO0TeGqLYYkm4zft4H sdHBncGFy TDlhuEHxouHidz72xLD8yL92AL2qINGsFbM4BDHf whQ1Ukb9YKObREStdLMhC030g2wwb0elsfOygDT3 nLdjZQRiyzmlRhM9JQpdMLRxbenpDFp4CTbsQIVk fLV6HADhnBRhD6DrSOFhOS4mupv0SLA0BBqgRHIi SnP3RHGhcWIdTAPefZhjOZggb092PHO9ErHdOLDe hxRmkYlktY2oVeBxVBIWjQCsD18heXEuVP0ft7Yt nM1jnKHzm9w8zXNwsUL1eMahNDBxpw9= SPECIMEN SOURCE (test code = 3377) q3morNTxIYGrrHM1EmIbJFOlg0hjc0Ej dHBncGFy BTyvaTYcayPeia89jBB9mK12FW0pENWmYkJ5ZRVx adR5Jta8JUWqMRHmxRNmJ329p6xen7yljmJzwVM7 fOfbZKEfnbpyGtC3NXpjVILwcriaABa5RHzpSCHp zRH4HHLdbWQkQ5GpGZWsPY0bzxv8PLT8COguEXMe NmW5KYUxfUXrYBRyhGvyTNvwz913OWR1DeDkEWXr ajPfqKyysV8sPfFyMXYAhSGwD93hbCJxAZ3sc4Ak fT2ewYPiu2t5eAZatUN6dVhvWVWvod0= GROSS DESCRIPTION (test code = 3366) t9hlhEQoRXTtaLSiAeNdNRQmAYMbc7 lcZGVmbGFu KaYzDvGvXzMpMtxifVDbUZJcSjSez7uhg932sHLq u4anFZHwJuC9jHUuWPMuzDFrR577GKKuWVwws0hs r5FkMGFthVZoi8K5JGJJcjfjfAp8dKvcD37pe4M8 EqblZ8yaUCFhGGPmH2FpHZ9iYLVzMpq6IQF0CKH8 YXAbCFTgR1JtZS6tZPKobRNhRQy7v3imcCmyIHKw FGB6y1llFVvjadIhFQ2cbt1keBr6y7eridLjRZMl STZwbTOWDAYnE1IguEacDb8dgBh3wTlgPuzkTKO7 Ome3FI6lns94jri8tGpoYSNhkrumZaL1UGirNCGi dvzdCNm8KKlcWPOkyRsnKWqrLVZdgpbaOZkxWLPj bLafELjkKMEkLtzvSXqkGOTyILJ9ISazh975ZVQ1 TKjbf6ovy0axoVBgBmp5YSXbIiHzUosiLUpdl1Yq a7guEOXgbv9kBFZ3oCDibZgyt4D0gXEzPFInxGFx kzTpSYQzFbX9BQzfPM6ufm98OZXdUFC2vw3hiZKt bPvygsBhlIFaPRrrF5NxZUSbt568JVAuE0FjQDQc x7R0ugYzPgJwZJWmcAN4siV2QFLwPNx1vLZofwZ0 skYcqZCkX5uxnX56WjKyxRGjQ5LutK77BhUnzIUo H9QhbS74YbSmgOEkN4EclB32TmApsVOuVZLrpKCf Ay8erFIjhTAgt0GmjKKzCTxeR06bi058NDYnnyQh N5ljfJBjurvrqFRzbnclJEsdtcV6SLZzKQJmNDjk XGYxXGZzMjBcbGFuZzEwMzNcaGljaFxmMVxkYmNo [file] cyBhcmUgYXJiaXRyYXJpbHkgZGVzaWduYXRlZCBh naYfIPCvUXQmKDWfq5MxB6EpntBuxQ1yKEFitYAt FYI3pHPtcdTaHFlwXAJlVG2jBZElYJGyfYHtc6Tx FuFqDDKlMPNnIHLzks1huQ0jUNBkARHzfo83qLx2 VT7zAn7wPFakY8GmaVJhdERbgS2kegCtbrQwsQSe zlZiWmpjUVJtkBFqSKBkqymbPLRfZ1EghHgovuXs y5FiRwmePJNiETO4JZgqLTIuVM53U18jKDGgZQ5r qhudZghzJZWiekA6jSesecsvYuJdwdPvmQ4xhiQh ShSrm1jhrV9oFZFnjzUNNaecHVfueW8xUS9cx4Jq kLAkGVTtrdBZUyBjvTA7zURtiOKqu3XdBJYfB00m JeQhfCWsuOTjgMSyvLEhXHJlpZ3nDEDpWGGziBHx ww6cCFDyXSZ0v62ek5wqYLMkmSLlpJIkFIR0ExPU ymXnsL2dm0CwuhRkiLYzWLYosjXKGSlpD32gy63s GT6oqN95W7xssF88B2ovcLVhDCA1IiFJx2segdUz wYZch2LuQ4FvkXypXCRhvrTwXwMrzUP4nSVxuECq G6xiIJWwPOYvdICqvz4vKLRqZGR8y51ak1bqONVr zSAzoLNbWVX7RmYEr4awrbMxqSAty6OsXHCyV67a UhUrvAYoZHRffB2cqSKeZZM8OuNLOcUdbEetBKzq a4KwhEKqp5uvIPXrLlTcaTQvgNVoPCX6MsNzHLHg l8AlBdKpskGiXUIixBOyLVEfQAnhriBvom61eSPd EQOcIBUyPKErqvAAYHI7RKGgeO7zSN2wigzczkum xISiJ1cqEDdzh7HuQZUfaHRwEJLpdnDSQVU1AKxl BBJaGG3msrulgmDuCQ8nbbetswLnyvybPDFvoLCp abYqzHWaKEUusaORlD4xkYYwJDrqhqTbPGXctQVc NXAQWKE6gRCaxkRlIVWkxwdqIJS0 MICROSCOPIC DESCRIPTION (test code = q7vowTMhMDXefVI0UeHbPPHmf4sld5 BsdHBncGFy 3371) DOrniIRxkdImmp41uTG1xS14MK5kTPTuUfU0DILg dtR1Xxm3OXOfUKQbrFFvY112i9ivt6isjgFitRP9 yAygROXpzpvsVjX5XEzcAITblfrxQZo5QKyhZSQd dKC3XMWnbUSsF7IgRUKnOE9lluk3JUQ8NOjkUJIi UmG3DENzaQKjRCXprMroHTmxc513SRO9EuPhSINl ztEwjUjxgU9eGrAuIEUzUJIaj9TuQLVjzQVwgB== Gross assessment was performed at (test [facility] C enter, code = 2777) Department of Pathology, [address] [place] [address], [place] [address], Technical component was performed at [facility] er, (test code = 2778) Department of Pathology, [address] [place] [id number], Professional component was performed at [facility] C enter, (test code = 2779) Department of Pathology, [address] [place] [address], [facility] [id number] 10:59:33Surgical Pathology Report Case: [id number] Authorizing Provider: Rock Alfaro MD Collected:06/14/2021 06:14 PM Ordering Location: [facility] Received: 06/15/2021 09:56 AM SERVICES Pathologist: Eldon Sneed MD Specimen: Soft Tissue, Other, 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 Signing Pathologist Direct Phone Line: [phone] signed by Eldon Sneed MD on 06/22/2021 at 10:59 [id number] anastomosis with fistulaIleocolic anastomosis with fistulaA. Received in formalin labeled with the patient's name, MRN and "softtissue, other" and consists of an ileocolic side to side anastomosis site, with both the large and small bowel with surgical margins and opposing blind pouches. The ileum measures 6 cm in length and 2.5 cm in diameter, with up to 6 cm attached adipose tissue. The colon measures 11.5 cm in length and 3cm in diameter, with up to 3.5 cm attached adipose tissue. The serosal surfaces are omer-pink, smooth. Opening reveals anastomosis line measuring 5.5 cm in length and located 2.5 cm from the small bowelsurgical margin, and 3 cm from the colon surgical margin. The ileum mucosa is omer-pink to omer-brown,with focal thinning and loss of folding measuring [...] normal folding. No discrete lesions are identified. Fulfillment Representative sections are submitted. Also in the container [...] closest skin, 1.2 cm from deep resection margin.There is also another area of necrosis measuring [...] cm from anastomosis siteA4: Anastomosis siteA5: colon endpouchpouchA6: Colon mucosa centimeters from the margin 1.5 cm from anastomosis siteA7: Colon mucosa, 6 cmfrom marginA8: Abdominal wall skin defect A9: necrotic area 1A10: necrotic area 2A11: Colon margin, margin inked blue A12: Ileum margin , margin inked black Martha WHITE [facility], [facility] of [facility]ology, [address] [place] [address], [facility], [facility] of [facility], [address] [place] [address] 304[address], [facility], Department of Pathology, [address] [place] [address], HRA-Glucose [id number] 12:01:05 Test Item Value Reference Range Interpretation Comments POC-Glucose Meter (test 192 mg/dL 70-110 H : TE STED AT [facility] code = 1538) [address] [place] [address], [facility] 30: Diving Fisher/Techni adeola ID = [id number] for Luli Snowden Lab Interpretation (test Abnormal code = 85247-4) [facility] [id number] 12:01:05 Test Item Value Reference Range Interpretation Comments POC-GLUCOSE METER 192 mg/dL 70-110 H : TESTED A T [facility] 6720 (BEAKER) (test code = PATRICK Brown [place], 1538) [address]: Diving Fisher/Techni adeola ID = [id number] for Luli Hinson POCT-GLUCOSE [id number] 07:41:10 Test Item Value Reference Range Interpretation Comments POC-GLUCOSE METER 146 mg/dL 70-110 H : TESTED A T [facility] 6720 (BEAKER) (test code = PATRICK Brown [facility], 1538) [address]: Diving Fisher/Techni adeola ID = [id number] for Yaya Hightower Gcqdbrnwp2134-78-97 05:06:24 Test Item Value Reference Range Interpretation Comments Magnesium (test code = 1.7 mg/dL 1.6-2.6 38796-1) GUSTAVO (test code = GUSTAVO) Diving Fisher ID - LEAH M Lab Interpretation (test Normal code = 87143-1) [facility] 05:06:24 Test Item Value Reference Range Interpretation Comments Phosphorus (test code = 3.7 mg/dL 2.3-4.7 2777-1) GUSTAVO (test code = GUSTAVO) Diving Fisher ID - LEAH M Lab Interpretation (test Normal code = 63607-7) [facility]UM2021-[facility]-06 05:06:24 Test Item Value Reference Range Interpretation Comments MAGNESIUM (BEAKER) (test code = 1.7 mg/dL 1.6-2.6 627) Diving Fisher ID - LEAH [id number] 05:06:24 Test Item Value Reference Range Interpretation Comments PHOSPHORUS (BEAKER) (test code = 3.7 mg/dL 2.3-4.7 604) Diving Fisher ID - LEAH MBasic Metabolic [id number] 05:06:23 Test Item Value Reference Range Interpretation Comments Sodium (test code = 142 meq/L 119-257 2139-2) Potassium (test code = 3.3 meq/L 3.5-5.1 L 2823-3) Chloride (test code = 109 meq/L 98-107 H 2075-0) CO2 (test code = 24 meq/L 22-29 2028-9) BUN (test code = 8 mg/dL 7-21 3094-0) Creatinine (test code 0.97 mg/dL 0.57-1.25 = 2160-0) Glucose (test code = 155 mg/dL 70-105 H 2345-7) Calcium (test code = 8.8 mg/dL 8.4-10.2 38817-0) EGFR (test code = 80 mL/min/1.73 [place] [address]-3) NOT ACCURATE CREATININE CLEARANCE IN PREDICTING GLOMERULAR FILTRATION RATE . ESTIMATED GFR I S NOT APPLICABLE FOR DIALYSIS PATIENTS. GUSTAVO (test code = GUSTAVO) Diving Fisher HERI - LEAH Robert Lab Interpretation Abnormal (test code = 53217-5) [facility] METABOLIC [id number] 05:06:23 Test Item Value Reference Range Interpretation [...] 697) EGFR (BEAKER) (test 80 mL/min/1.73 ESTIMA MARY GFR IS code = 1092) sq m NOT ACCURATE CREATININE CLEARANCE IN PREDICTING GLOMERULAR FILTRATION RATE . ESTIMATED GFR I S NOT APPLICABLE FOR DIALYSIS PATIEN TS. Diving Fisher ID - LEAH MCBC with platelet count + automated [id number] 04:40:06 Test Item Value Reference Range Interpretation Comments WBC (test code = 6690-2) 7.3 See_Comment [A utomated message] The system [employer] generated this result transmitted ref erence range: 3.5 - 10 .5 K/L. The refe rence range was not u sed to interpret this result as normal/abnor mal. RBC (test code = 789-8) 3.76 See_Comment L [Au tomated message] The system [employer] generated this result transmitted ref erence range: 4.63 - 6 .08 M/L. The refe rence range was not u sed to interpret this result as normal/abnor mal. MCHC (test code = 786-4) 31.9 See_Comment L [A utomated message] The system [employer] generated this result transmitted ref erence range: 32.3 - 3 6.5 GM/DL. The refe rence range was not u sed to interpret this result as normal/abnor mal. Hematocrit (test code = 32.3 % 40.1-51.0 L 4544-3) MCV (test code = 787-2) 85.9 fL 79.0-92.2 MCH (test code = 785-6) 27.4 pg 25.7-32.2 RDW (test code = 788-0) 13.1 % 11.6-14.4 Platelets (test code = 260 See_Comment [Aut omated message] 777-3) The system [employer] generated this result transmitted ref erence range: 150 - 45 0 K/CU MM. The referen ce range was not u sed to interpret this result as normal/abnor mal. MPV (test code = 10.5 fL 9.4-12.4 37691-0) nRBC (test code = 413) 0 See_Comment [Aut omated message] The system [employer] generated this result transmitted ref erence range: 0 - 0 /1 00 WBC. The refere nce range was not u sed to interpret this result as normal/abnor mal. % Neutros (test code = 70 % 429) % Lymphs (test code = 21 % 430) % Monos (test code = 5 % 431) % Eos (test code = 432) 4 % % Baso (test code = 437) 0 % # Neutros (test code = 5.09 See_Comment [Aut omated message] 670) The system [employer] generated this result transmitted ref erence range: 1.78 - 5 .38 K/L. The refe rence range was not u sed to interpret this result as normal/abnor mal. # Lymphs (test code = 1.51 See_Comment [Auto mated message] 414) The system [employer] generated this result transmitted ref erence range: 1.32 - 3 .57 K/L. The refe rence range was not u sed to interpret this result as normal/abnor mal. # Monos (test code = 0.37 See_Comment [Autom ated message] 415) The system [employer] generated this result transmitted ref erence range: 0.30 - 0 .82 K/L. The refe rence range was not u sed to interpret this result as normal/abnor mal. # Eos (test code = 416) 0.26 See_Comment [Au tomated message] The system [employer] generated this result transmitted ref erence range: 0.04 - 0 .54 K/L. The refe rence range was not u sed to interpret this result as normal/abnor mal. # Baso (test code = 417) 0.01 See_Comment [A utomated message] The system [employer] generated this result transmitted ref erence range: 0.01 - 0 .08 K/L. The refe rence range was not u sed to interpret this result as normal/abnor mal. Immature 0 % 0-1 Granulocytes-Relative (test code = 2801) Lab Interpretation (test Abnormal code = 58365-0) [facility] W/PLT COUNT & AUTO [id number] 04:40:06 Test Item Value Reference Range Interpretation [...] PERCENT (BEAKER) (test code = 2801) POCT-GLUCOSE [id number] 21:15:05 Test Item Value Reference Range Interpretation Comments POC-GLUCOSE METER 168 mg/dL 70-110 H : TESTED A T [facility] 6720 (BEAKER) (test code = PATRICK HOANG, 1538) [address]: Diving Fisher/Techni adeola ID = [id number] for SAVITA GARRIDO POCT-GLUCOSE [id number] 16:58:14 Test Item Value Reference Range Interpretation Comments POC-GLUCOSE METER 121 mg/dL 70-110 H : TESTED A T [facility] 6720 (BEAKER) (test code = [facility] Kevin [facility], 1538) [address]: Diving Fisher/Techni adeola ID = [id number] for RA ADDIS MENDESABEL POCT-GLUCOSE [id number] 12:40:25 Test Item Value Reference Range Interpretation Comments POC-GLUCOSE METER 190 mg/dL 70-110 H : TESTED A T [facility] 6720 (BEAKER) (test code = [facility], 1538) 19[address]: Diving Fisher/Techni adeola ID = [id number] for Lanre Suazo POCT-GLUCOSE [id number] 10:13:27 Test Item Value Reference Range Interpretation Comments POC-GLUCOSE METER 177 mg/dL 70-110 H : TESTED A T [facility] 6720 (BEAKER) (test code = [facility], 1538) 49848: Diving Fisher/Techni adeola ID = [id number] for Lanre Suazo [id number] 04:01:22 Test Item Value Reference Range Interpretation Comments PHOSPHORUS (BEAKER) (test code = 3.2 mg/dL 2.3-4.7 604) Diving Fisher ID - DBBASIC METABOLIC [id number] 04:01:21 Test Item Value Reference Range Interpretation [...] 697) EGFR (BEAKER) (test 69 mL/min/1.73 ESTIMA MARY GFR IS code = 1092) sq m NOT ACCURATE CREATININE CLEARANCE IN PREDICTING GLOMERULAR FILTRATION RATE . ESTIMATED GFR I S NOT APPLICABLE FOR DIALYSIS PATIEN TS. Diving Fisher ID - [id number] 04:01:21 Test Item Value Reference Range Interpretation Comments MAGNESIUM (BEAKER) (test code = 1.8 mg/dL 1.6-2.6 627) Diving Fisher ID - DBCBC W/PLT COUNT & AUTO [id number] 03:40:45 Test Item Value Reference Range Interpretation [...] PERCENT (BEAKER) (test code = 2801) POCT-GLUCOSE [id number] 21:23:17 Test Item Value Reference Range Interpretation Comments POC-GLUCOSE METER 149 mg/dL 70-110 H : TESTED A T [facility] 6720 (BEAKER) (test code = [facility], [facility]8) 53349: Diving Fisher/Techni adeola ID = [id number] for Or Jorge ramosella POCT-GLUCOSE [id number] 16:28:43 Test Item Value Reference Range Interpretation Comments POC-GLUCOSE METER 178 mg/dL 70-110 H : TESTED A T [facility] 6720 (BEAKER) (test code = [facility], [facility]8) [address]99: Diving Fisher/Techni adeola ID = [id number] for Da vis, Yao POCT-GLUCOSE [id number] 11:51:12 Test Item Value Reference Range Interpretation Comments POC-GLUCOSE METER 242 mg/dL 70-110 H : TESTED A T [facility] 6720 (BEAKER) (test code = [facility], [facility]8) 46716: Diving Fisher/Techni adeola ID = [id number] for RA MOS, KRISTI POCT-GLUCOSE [id number] 07:29:20 Test Item Value Reference Range Interpretation Comments POC-GLUCOSE METER 189 mg/dL 70-110 H : TESTED A T [facility] 6720 (BEAKER) (test code = [facility], 1538) 70352: Diving Fisher/Techni adeola ID = [id number] for RA MOS, KRISTI [id number] 04:54:20 Test Item Value Reference Range Interpretation Comments PHOSPHORUS (BEAKER) (test code = 2.1 mg/dL 2.3-4.7 L 604) Diving Fisher ID - ADMINBASIC METABOLIC [id number] 04:54:19 Test Item Value Reference Range Interpretation [...] 697) EGFR (BEAKER) (test 73 mL/min/1.73 ESTIMA MARY GFR IS code = 1092) sq m NOT ACCURATE CREATININE CLEARANCE IN PREDICTING GLOMERULAR FILTRATION RATE . ESTIMATED GFR I S NOT APPLICABLE FOR DIALYSIS PATIEN TS. Diving Fisher ID - [id number] 04:54:19 Test Item Value Reference Range Interpretation Comments MAGNESIUM (BEAKER) (test code = 1.6 mg/dL 1.6-2.6 627) Diving Fisher ID - ADMINCBC W/PLT COUNT & AUTO [id number] 04:29:04 Test Item Value Reference Range Interpretation [...] PERCENT (BEAKER) (test code = 2801) POCT-GLUCOSE [id number] 21:16:56 Test Item Value Reference Range Interpretation Comments POC-GLUCOSE METER 182 mg/dL 70-110 H : TESTED A T [facility] 6720 (BEAKER) (test code = [facility], 153) 86628: Diving Fisher/Techni adeola ID = [id number] for Or louisehoda Anant POCT-GLUCOSE [id number] 16:46:30 Test Item Value Reference Range Interpretation Comments POC-GLUCOSE METER 182 mg/dL 70-110 H : TESTED A T [facility] 6720 (BEAKER) (test code = [facility], 153) 31570: Diving Fisher/Techni adeola ID = [id number] for Uvaldo Estes POCT-GLUCOSE [id number] 11:39:19 Test Item Value Reference Range Interpretation Comments POC-GLUCOSE METER 241 mg/dL 70-110 H : TESTED A T [facility] 6720 (BEAKER) (test code = PATRICK Brown [place], 1538) 600[address]: Diving Fisher/Techni adeola ID = [id number] for Uvaldo Estes POCT-GLUCOSE [id number] 06:36:57 Test Item Value Reference Range Interpretation Comments POC-GLUCOSE METER 211 mg/dL 70-110 H : TESTED A T [facility] 6720 (BEAKER) (test code = PATRICK Brown [place], 1538) 07145: Diving Fisher/Techni adeola ID = [id number] for Tomy Arias [id number] 06:33:57 Test Item Value Reference Range Interpretation Comments PHOSPHORUS (BEAKER) (test code = 1.7 mg/dL 2.3-4.7 L 604) Diving Fisher ID - AILIN GBASIC METABOLIC [id number] 06:33:56 Test Item Value Reference Range Interpretation [...] 697) EGFR (BEAKER) (test 63 mL/min/1.73 ESTIMA MARY GFR IS code = 1092) sq m NOT ACCURATE CREATININE CLEARANCE IN PREDICTING GLOMERULAR FILTRATION RATE . ESTIMATED GFR I S NOT APPLICABLE FOR DIALYSIS PATIEN TS. Diving Fisher ID - AILIN [id number] 06:33:56 Test Item Value Reference Range Interpretation Comments MAGNESIUM (BEAKER) (test code = 1.9 mg/dL 1.6-2.6 627) Diving Fisher ID - AILIN GCBC W/PLT COUNT & AUTO [id number] 06:06:37 Test Item Value Reference Range Interpretation [...] 0-1 PERCENT (BEAKER) (test code = 2801) Vancomycin level, [id number] 00:19:08 Test Item Value Reference Range Interpretation Comments Vancomycin Tr (test code = 13.6 ug/mL 10.0-20.0 4092-3) GUSTAVO (test code = GUSTAVO) Diving Fisher ID - DB Lab Interpretation (test Normal code = 82098-3) [facility]AN[facility] LEVEL, [id number] 00:19:08 Test Item Value Reference Range Interpretation Comments VANCOMYCIN TROUGH (BEAKER) (test 13.6 ug/mL 10.0-20.0 code = 522) Diving Fisher ID - DBPOCT-GLUCOSE [id number] 23:01:21 Test Item Value Reference Range Interpretation Comments POC-GLUCOSE METER 200 mg/dL 70-110 H : TESTED A T [facility] 6720 ([facility]) (test code = [facility], 153) 43678: Diving Fisher/Techni adeola ID = [id number] for No marie Tomy POCT-GLUCOSE [id number] 18:25:14 Test Item Value Reference Range Interpretation Comments POC-GLUCOSE METER 218 mg/dL 70-110 H : [facility]) (test code = [facility], 153) 49523: Diving Fisher/Techni adeola ID = [id number] for Wi lliams, Areiona POCT-GLUCOSE [id number] 11:30:08 Test Item Value Reference Range Interpretation Comments POC-GLUCOSE METER 203 mg/dL 70-110 H : [facility] ([facility]) (test code = [facility], 153) 42[address]: Diving Fisher/Techni adeola ID = [id number] for Wi lliams, Areiona POCT-GLUCOSE [id number] 06:17:10 Test Item Value Reference Range Interpretation Comments POC-GLUCOSE METER 233 mg/dL 70-110 H : Notified RN/MD: ([facility]) (test code = TESTED AT [facility] 6720 153) [facility], [address]: Diving Fisher/Techni adeola ID = [id number] for Sa [place], Logan CBC W/PLT COUNT & AUTO [id number] 05:50:17 Test Item Value Reference Range Interpretation Comments WHITE BLOOD CELL COUNT (BEAKER) 14.4 K/ L 3.5-10.5 H (test code [...] 0-1 PERCENT (BEAKER) (test code = 2801) [id number] 05:31:22 Test Item Value Reference Range Interpretation Comments PHOSPHORUS (BEAKER) (test code = 1.9 mg/dL 2.3-4.7 L 604) Diving Fisher ID - LEAH MBASIC METABOLIC [id number] 05:31:21 Test Item Value Reference Range Interpretation [...] 697) EGFR (BEAKER) (test 61 mL/min/1.73 ESTIMA MARY GFR IS code = 1092) sq m NOT ACCURATE CREATININE CLEARANCE IN PREDICTING GLOMERULAR FILTRATION RATE . ESTIMATED GFR I S NOT APPLICABLE FOR DIALYSIS PATIEN TS. Diving Fisher ID - LEAH [id number] 05:31:21 Test Item Value Reference Range Interpretation Comments MAGNESIUM (BEAKER) (test code = 1.5 mg/dL 1.6-2.6 L 627) Diving Fisher ID - LEAH MPOCT-GLUCOSE [id number] 00:25:48 Test Item Value Reference Range Interpretation Comments POC-GLUCOSE METER 213 mg/dL 70-110 H : Notified RN/MD: (ELIDA) (test code = TESTED AT [facility] 9995 8573) [facility], [address]: Diving Fisher/Techni adeola ID = [id number] for Logan pemberton POCT-GLUCOSE [id number] 18:27:24 Test Item Value Reference Range Interpretation Comments POC-GLUCOSE METER 203 mg/dL 70-110 H : TESTED A T [facility] 6720 (BEAKER) (test code = PAT[place], 1538) [address]: Diving Fisher/Techni adeola ID = [id number] for Yaya Hightower Manual Egudgsnurflk2519-23-14 08:45:11 Test Item Value Reference Range Interpretation Comments % Neutros (test code = 84 % 2816) % Lymphs (test code = 6 % 2817) % Monos (test code = 3 % 2818) % Metamyelo (test code 1 % 0-0 H = 2821) % Bands (test code = 6 % 0-10 2826) # Neutros (test code = 15.29 K/ul 1.78-5.38 H 2830) # Lymphs (test code = 1.09 K/ul 1.32-3.57 L 2831) # Monos (test code = 0.55 K/uL 0.30-0.82 2832) # Metamyelo (test code 0.18 K/uL 0.00-0.00 H = 2836) # Bands (test code = 1.09 K/uL 0.00-0.80 H 2840) Total Counted (test 100 code = 1351) WBC Morphology (test Normal code = 487) Platelet Morphology Normal (test code = 486) Polychromasia (test 1+ few code = 478) Anisocytosis (test code 1+ few = 961) Microcytes (test code = 1+ few 965) Artifact (test code = Present 3432) Platelet Conc (test Adequate code = 3438) GUSTAVO (test code = GUSTAVO) Diving Fisher ID - Sobeida Velázquez comments: Slide comments: Lab Interpretation Abnormal (test code = 41675-4) [facility](CELLAVISION MANUAL DIFF)2021-06-15 08:45:11 Test Item Value Reference [...] CONCENTRATION Adequate (CELLAVISION)(BEAKER) (test code = 3438) Diving Fisher ID - Sobeida Velázquez comments: Slide comments:CBC W/PLT COUNT & AUTO [id number] 08:45:05 Test Item Value Reference Range Interpretation [...] WBC 0-0 (BEAKER) (test code = 413) [id number] 06:30:56 Test Item Value Reference Range Interpretation Comments PHOSPHORUS (BEAKER) (test code = 3.5 mg/dL 2.3-4.7 604) Diving Fisher ID - LEAH [id number] 06:30:55 Test Item Value Reference Range Interpretation Comments MAGNESIUM (BEAKER) (test code = 1.4 mg/dL 1.6-2.6 L 627) Diving Fisher ID - LEAH MBASIC METABOLIC [id number] 06:30:54 Test Item Value Reference Range Interpretation [...] 697) EGFR (BEAKER) (test 45 mL/min/1.73 ESTIMA MARY GFR IS code = 1092) sq m NOT ACCURATE CREATININE CLEARANCE IN PREDICTING GLOMERULAR FILTRATION RATE . ESTIMATED GFR I S NOT APPLICABLE FOR DIALYSIS PATIEN TS. Diving Fisher ID - LEAH MPOCT-GLUCOSE [id number] 05:37:53 Test Item Value Reference Range Interpretation Comments POC-GLUCOSE METER 281 mg/dL 70-110 H : TESTED A T [facility] 6720 (BEAKER) (test code = KATIV[facility] Kevin [facility], 1538) [address]: Diving Fisher/Techni adeola ID = [id number] for HOWARD FLORES POCT-GLUCOSE [id number] 21:50:49 Test Item Value Reference Range Interpretation Comments POC-GLUCOSE METER 225 mg/dL 70-110 H : TESTED A T [facility] 6720 (BEAKER) (test code = [facility] Kevin [facility], 1538) [address]86: Diving Fisher/Techni adeola ID = [id number] for Marj Pritchardopoldo RAD, ABDOMEN/KUB, 1 VIEW [id number] 21:45:00Reason for exam:->NG tube placementShould this be performed at the bedside?->[facility] : 1965 Sex: MFINAL REPORT [...] MDReport Verified Date/Time: 06/14/2021 21:45:52 Reading Location: [facility] Mammo Reading Room POCT- GLUCOSE [id number] 17:47:10 Test Item Value Reference Range Interpretation Comments POC-GLUCOSE METER 179 mg/dL 70-110 H : TESTED A T [facility] 6720 (BEAKER) (test code = PATR[place], 1538) [address]: Diving Fisher/Techni adeola ID = [id number] for AB RAHAM, MARIO Type and screen, [id number] 11:52:00 Test Item Value Reference Range Interpretation Comments ABO/RH AUTOMATED (BEAKER) (test B POSITIVE code = 2260) Ab Scrn (test code = 890-4) NEGATIVE [facility] HospitalABORH, [id number] 11:39:00 Test Item Value Reference Range Interpretation Comments ABO Grouping (test code = 2588) B Rh Factor (test code = 2589) POS [facility] HospitalBUN and [id number] 11:30:01 Test Item Value Reference Range Interpretation Comments BUN (test code = 21 mg/dL - 3094-0) Creatinine (test 1.06 mg/dL 0.57-1.25 code = 2160-0) BUN/Creatinine 20 For a normal ratio (test code = individua l on a 3097-3) normal diet, th e reference inter yves for the mass ra latosha ranges between 12:1 and 20:1 ( BUN in mg/dL/creatinin e in mg/dL) EGFR (test code = 72 mL/min/1.[place] [address]-1) NOT ACCURATE CREATININE CLEARANCE IN PREDICTING GLOMERULAR FILTRATION RATE . ESTIMATED GFR I S NOT APPLICABLE FOR DIALYSIS PATIEN TS. GUSTAVO (test code = Diving Fisher ID - GUSTAVO) CAROLINA F [facility] HospitalBUN AND CREATININE [id number]/[id number] 11:30:01 Test Item Value Reference Range Interpretation Comments BLOOD UREA NITROGEN 21 mg/dL - (BEAKER) (test code = 354) CREATININE (BEAKER) 1.06 mg/dL 0.57-1.25 (test code = 358) BUN/CREAT RATIO 20 For a normal (BEAKER) (test code individu al on a = 7017454271) normal diet, t he reference inter yves for the mass ra latosha ranges between 12:1 and 20:1 (BUN i n mg/dL/creatinin e in mg/dL) EGFR (BEAKER) (test 72 mL/min/1.73 ESTIMA MARY GFR IS code = 1092) sq m NOT ACCURATE CREATININE CLEARANCE IN PREDICTING GLOMERULAR FILTRATION RATE . ESTIMATED GFR I S NOT APPLICABLE FOR DIALYSIS PATIEN TS. Diving Fisher ID Jose GATES HAbqrljwootzp2556-14-14 11:30:00 Test Item Value Reference Range Interpretation Comments Sodium (test code = 141 meq/L 775-487 6353-2) Potassium (test code = 4.5 meq/L 3.5-5.1 Speci men 2823-3) slightly hemolyzed Chloride (test code = 109 meq/L 98-107 H 5-0) CO2 (test code = 24 meq/L 22-29 8-9) GUSTAVO (test code = GUSTAVO) Diving Fisher HERI Garcia KODY Jeff Lab Interpretation Abnormal (test code = 64134-8) [facility] 11:30:00 Test Item Value Reference Range Interpretation Comments Glucose (test code = 149 mg/dL 70-105 H 2345-7) GUSTAVO (test code = GUSTAVO) Diving Fisher ID Jose KODY Jeff Lab Interpretation (test Abnormal code = 08993-8) [facility] Hospita[id number] 11:30:00 Test Item Value Reference Range Interpretation Comments SODIUM (BEAKER) (test 141 meq/L 136-145 code = 381) POTASSIUM (BEAKER) 4.5 meq/L 3.5-5.1 Specimen slightly (test code = 379) hemolyzed CHLORIDE (BEAKER) 109 meq/L 98-107 H (test code = 382) CO2 (BEAKER) (test 24 meq/L 22-29 code = 355) Diving Fisher ID Jose GATES [id number] 11:30:00 Test Item Value Reference Range Interpretation Comments GLUCOSE RANDOM (BEAKER) (test code 149 mg/dL 70-105 H = 652) Diving Fisher ID Jose GATES HUewghwstsv3411-34-40 11:13:39 Test Item Value Reference Range Interpretation Comments Hemoglobin (test code 13.0 See_Comment L [Auto mated = 786-4) message] The system which generated this result transmit mary reference range : 13.7 - 17.5 GM/ DL. The reference range was not u sed to interpret th is result as normal/abnormal . GUSTAVO (test code = GUSTAVO) Diving Fisher ID - [id number] Lab Interpretation Abnormal (test code = 72862-4) [facility]MOGLOBIN2021-[facility]-30 11:13:39 Test Item Value Reference Range Interpretation Comments HEMOGLOBIN (BEAKER) (test code = 13.0 GM/DL 13.7-17.5 L 410) Diving Fisher ID - 6000HEMOGLOBIN [id number] 09:30:00 Test Item Value Reference Range Interpretation Comments HEMOGLOBIN A1C (test 7.7 % 4.2-5.6 H [employer] code = 4548-4) ASSOCIATION G UIDELINES FOR HGB A1C: PREDIABETES/INC REASED RISK . . . . . . . 5.7-6.4% DIAGN OSIS OF DIABETES . . . . . . . . . >=6.5% WITH CONFIRMATION OR APPROPRIATE SYM PTOMS NOTE: ASSAY MAY BE AFFECTED BY HEMOGLOBINOPATH IES (SICKLE CELL AN EMIA, S-C DISEASE, OTHERS ) OR ARTIFICIALLY LO WERED BY DECREASED RED C ELL SURVIVAL (HEMOL YTIC ANEMIAS, BLOOD LOSS, ETC.). CONSIDER ALTERNATE TESTI NG OR LABORATORY CONS ULTATION. Unless Otherwis e Indicated, All Testing Performed At: [facility] [address] Director: Aníbal Tay M.D. CLIA Number [id number] Cap Accreditation N o. [id number] Lab Interpretation Abnormal (test code = 60858-0) [facility] [id number] 12:08:10Surgical Pathology Report Case: [id number] Authorizing Provider: Kelli Correa MD Collected:04/15/2021 04:04 PM Ordering Location: [facility] Received: 04/18/2021 09:45 AM Pathologist: Jayde Chicas MD Specimen: Polyp, Colon - Sigmoid SIGMOID COLON POLYP, BIOPSY: - FRAGMENTS OF TUBULAR ADENOMASJ/pl Signing Pathologist Direct Phone Line: [phone] signed by Jayde Chicas MD on 04/19/2021 at 12:08 PMEndoscopic report reviewed. [id number] fistulaSigmoid colonReceived in formalin labeled the patient's name, accession number and "sigmoid colon polyp" are 2 omer soft tissue fragments measuring up to 0.3 cm in greatest dimension which are filtered and submitted in toto in A1.CHRISTOPHER Valetnin, HT (ASCP)PerformedPOCT-GLUCOSE [id number] 14:30:56 Test Item Value Reference Range Interpretation Comments POC-GLUCOSE METER 125 mg/dL 70-110 H : TESTED A T [facility] 6720 (BEAKER) (test code = PATRICK Kevin [facility], 1538) [address]: Diving Fisher/Techni adeola ID = [id number] for JOSELYN JORDAN SARS-CoV2/RT-PCR (Asymptomatic ONLY)2021-04-14 01:18:28 Test Item Value Reference Range Interpretation Comments SARS-COV2/RT-PCR (test Negative Negative code = 32586-6) GUSTAVO (test code = GUSTAVO) Negative result for this test determines that [...] be considered in cases of suspected false negatives. The limit of detection for this assay is 100 copies/mL. This SARS-CoV-2 test is a real-time RT_PCR test intended for the qualitative detection of nucleic acid from SARS-CoV-2 in a nasopharyngeal swab specimen collected from individuals suspected of COVID-19 by their healthcare provider. This test has not been Food and Drug Administration (FDA) cleared or approved. This is a modified version of an approved Emergency Use Authorization (EUA) and is in the process of review by the FDA. Once authorized by the FDA, the issued EUA will be effective until the declaration that circumstances exist justifying the authorization of the emergency use of in vitro diagnostic tests for detection and/or diagnosis of COVID-19 is terminated under Section 564(b)(2) of the Act or the EUA is revoked under Section 564(g) of the Act. Testing was performed using the Sam SARS-CoV-2 assay. Fact Sheet for Healthcare Providers:https://www.zuly leory/delicia/RT SARS-CoV-2 HCP Fact Sheet 51-642756.pdf Fact Sheet for Healthcare Patients:https://www.marily balderas/delicia/RT SARS-CoV-2 Patient Fact Sheet EN 51-270064E9.pdf Lab Interpretation Normal (test code = 90982-2) [facility])2021-04-14 01:18:28 Test Item Value Reference Range Interpretation Comments SARS-COV2/RT-PCR (test code = Negative Negative [id number]) Negative result for this test determines that [...] the FDA, the issued EUA will be effective until the declaration that circumstances exist justifying the authorization of the emergency use of in vitro diagnostic tests for detection and/or diagnosis of COVID-19 is terminated under Section 564(b)(2) of the Act or the EUA is revoked under Section 564(g) of the Act.Testing was performed using [employer] SARS-CoV-2 assay.Fact Sheet for Healthcare Providers:https://www.Luminescent.[employer]/delicia/RT SARS-CoV-2 HCP Fact Sheet 51- 329813.pdfFact Sheet for Healthcare Patients:https://www.Luminescent.[employer]/delicia/RT SARS-CoV-2 Patient Fact Sheet EN 51-129789M6.pdf
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
--- NOTE | 2022-04-04 12:22 | RAD REPORT ---
EXAM DESCRIPTION: CT - Head C Spine Cap Wo Con - 04/03/2022 11:58 pm CLINICAL HISTORY: The patient is 86 years old and is Male; fall TECHNIQUE: Axial computed tomography images of the chest, abdomen and pelvis without intravenous con trast. Sagittal and coronal reformatted images were created and reviewed. This CT exam was perfor med using one or more of the following dose reduction techniques: automated exposure control, adjus tment of the mA and/or kV according to patient size, and/or use of iterative reconstruction technique . COMPARISON: No relevant prior studies available. FINDINGS: HEAD: INTRACRANIAL: No acute intracranial abnormality. No hemorrhage, midline shift, transtentorial herniat ion. No focal melton-white matter differentiation loss. Global cerebral atrophy, not unexpected for pat ient age. Mild periventricular white matter disease. BONES: No fracture of the calvarium or visualized facial bones. Small subcutaneous hyperdense focus n oted overlying the left of midline forehead, presumably reflecting a scalp hematoma. C-SPINE: Multilevel degenerative changes of cervical spine with no prevertebral fracture, subluxation, or disl ocation. No significant bony spinal canal stenosis. CHEST: LUNGS: See below. PLEURAL SPACE: Right apical scarring. Trace bilateral pleural effusions. Patchy central predominant groundglass opacities are noted scattered throughout the bilateral lungs, suggestive of mild pulmona ry edema. No pneumothorax. HEART: Cardiomegaly. ABDOMEN: LIVER: Unremarkable. GALLBLADDER AND BILE DUCTS: Unremarkable. No calcified stones. No ductal dilation. PANCREAS: Unremarkable. No ductal dilation. SPLEEN: Unremarkable. No splenomegaly. ADRENALS: Diffuse thickening of the bilateral adrenal glands with no focal adrenal mass. KIDNEYS AND URETERS: Left nephrectomy changes. Hyperdense cyst demonstrated in the superior pole of the right kidney. Suspected simple renal cyst demonstrated in the superior pole of the right kidney, though poorly evaluated due to lack of contrast and patient motion. STOMACH AND BOWEL: Unremarkable. No obstruction. No mucosal thickening. PELVIS: APPENDIX: No findings to suggest acute appendicitis. BLADDER: Unremarkable. No stones. REPRODUCTIVE: Moderate prostamegaly. CHEST, ABDOMEN and PELVIS: INTRAPERITONEAL SPACE: Unremarkable. No significant fluid collection. No free air. BONES/JOINTS: Extensive multilevel degenerative changes of the cervical, thoracic, lumbar, and sacral spine without fracture or significant subluxation. Prominent Schmorl's node demonstrated in the superior endplate of the T12 vertebra. Degenerative disc changes demonstrated at the L5-S1 lev el. Nondisplaced fracture of the posterior lateral left 11th rib (series CT #601, axial image 66/ 145). No additional acute fractures are identified. A healing fracture of the anterior lateral left s eventh rib is noted. SOFT TISSUES: Mild diffuse anasarca. VASCULATURE: Dense calcified atherosclerosis of the aortic arch, bilateral carotid vessels, descending thoracic and abdominal aorta. Dense multivessel coronary artery calcifications and calcification of the aortic valve. Moder ate mitral annular calcification. No aortic aneurysm. LYMPH NODES: Unremarkable. No enlarged lymph nodes. TUBES, LINES AND DEVICES: Multilead cardiac device demonstrated of the left chest with leads termin ating in the right atria and right ventricle. IMPRESSION (CT head, C-spine, chest, abdomen, and pelvis): 1. Suspected acute, nondisplaced fracture of the posterior lateral left 11th rib. Suspected healing f racture of the anterior lateral left seventh rib. 2. Cardiomegaly with mild pulmonary edema, anasarca, and trace bilateral pleural effusions. 3. No additional acute osseous abnormalities. No acute intracranial abnormalities, acute abnormalitie s of the cervical spine, or other acute abnormalities of the chest, abdomen, or pelvis. 4. Left nephrectomy changes. Hyperdense cyst demonstrated in the superior pole of the right kidney. S uspected simple renal cyst demonstrated in the superior pole of the right kidney, though incompletely evaluated. Follow-up evaluation by nonemergent renal ultrasound recommended. Electronically signed by: Jone Castañeda MD 04/04/2022 1:25 AM CDT Due to temporary technical issues with the PACS/Fluency reporting system, reports are being signed by the in house radiologists without review as a courtesy to insure prompt reporting. The interpreting radiologist is fully responsible for the content of the report.
[2022-04-05 09:48] VITALS: TEMP 98.4; O2SAT 99
[2022-04-05 09:53] VITALS: BP 140/78
== END 2022-04-04 02:14 | disposition home or self-care (01) ==
LOC: ER 22:50
DX: R07.9 Chest pain, unspecified (principal); V49.49XA Driver injured in collision with other motor vehicles in traffic accident, initial encounter
CPT/HCPCS: 70450; 71250; 72125; 99284

== ENCOUNTER 2023-01-22 11:08 | Emergency (ER) | payer OTHER ==
--- OUTSIDE RECORDS SUMMARY | 2023-01-22 11:15 | XMS REPORT | Continuity of Care Document ---
:1965 Author Organization [facility] t Address [address] [place] [address] [address] [place] [address] Care Team Providers Name Role Phone BEL RAI Primary Care Physician Unavailable Bel Rai Attending Clinician Unavailable KELLI CORREA Attending Clinician Unavailable ROCK ALFARO Attending Clinician Unavailable Vianca GOULD, Rock Acosta Attending Clinician John GOULD, Enmanuel Adams Attending Clinician Zev Underwood Attending Clinician Sunny GOULD, Kelli Attending Clinician Joe GOULD, Kelsey Vincent Attending Clinician [phone] Savanah GOULD, Chris Miranda Attending Clinician KELLI CORREA Admitting Clinician Unavailable ROCK ALFARO Admitting Clinician Unavailable Payers Payer Name Policy Type Policy Number Effective Date Expiration Date S johan CIGNA OPOS [id number] SELECT PRETP 00:00:00 AETNA MEDICARE 53 [id number] 2021 Common 00:00:00 [facility] AETNA MEDICARE 53 [id number] 2021 Common 00:00:00 [facility] CIGNA HE[employer]ING [id number] HMO 00:00:00 MEDICARE HUAITAS MB [id number] 2015 Common 00:00:00 [facility] [employer] C1 [id number] 2020 Common 00:00:00 [facility] [employer] C1 [id number] 2020 Common 00:00:00 [facility] MEDICARE NOVITAS MB [id number] 2015 Common 00:00:00 [facility] Problems Condition Condition Condition Status Onset Resolution Last Treating Co mments Source Name Details Category Date Date Treatment Clinician Date 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 1-30 [facility]: Medical 00 [place] [id number] 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 - [facility] associated St with type [facility] 2 diabetes Medica l mellitus Center [id number] Body mass Problem Com mon index [facility] [BMI] - [facility] 40.0-44.9, [facility] [id number] Morbid Problem Commo n [id number] (severe) [facility] obesity - [facility] due to [facility] Neurologic 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 - CH I with type mellitus St II with other [facility] diabetes neurologic Medi jonathan mellitus complicati Cent er on, without long-term current use of insulin Peripheral Peripheral Problem C ommon nerve nerve Spirit disorder disorder - [facility] [id number] Hyperlipid Problem Com mon emia, Spirit unspecifie - [facility] hyperlipid [facility] emia [facility] [id number] 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 - [facility] [id number] Uncontroll Problem Co mmon ed type 2 Spirit diabetes - [facility] mellitus [facility] without [facility] complicati Medica l on, Center without long-term current use of insulin [id number] Hypertensi Problem Com mon on, Spirit unspecifie - [facility]I d type [facility] [id number] Erectile Problem Comm on dysfunctio Spirit n, - [facility] unspecifie d erectile [facility] dysfunctio Medica l n type Center [id number] Type 2 Problem Common diabetes Spirit mellitus - [facility]I with [facility] long-term current use of insulin [id number] Balanitis Problem Comm on Spirit - [facility] [id number] Obesity Problem Commo n (BMI Spirit 30-39.9) - [facility] [id number] Obstructiv Problem Com mon e sleep Spirit apnea - [facility] [id number] Noncomplia Problem Co mmon nce with Spirit dietary - [facility] restrictio [facility] [id number] Repetitive Problem Co mmon intrusions Spirit of sleep - [facility] [id number] Daytime Problem Comm on 00 somnolence [facility] Allergies, Adverse Reactions, Alerts Allergy Allergy Status Severity Reaction(s) Onset Inactive Treating Comm ents Source Name Type Date Date Clinician NO KNOWN Allergy Active [facility] Social History Social Habit Start Date Stop Date Quantity Comments Source History of Common [facility] - Tobacco Use [facility] Alcohol intake 2021-06-15 2021-06-15 Ex-drinker [facility] es 00:00:00 00:00:00 (finding) [facility] Tobacco use and 2021-04-12 2021-04-12 Never used [facility] exposure 00:00:00 00:00:00 [facility] Sex [birth year] M [facility] 00:00:00 00:00:00 [facility] Smoking Status Start Date Stop Date Source Never Smoker Common [facility] Medications Ordered Filled Start Stop Current Ordering Indication Dosage Frequency Signature Comments Components Source Medication Medication Date Date Medication? Clinician (SIG) Name Name Jardiance Jardiance 2021- No 1{table QD Jardiance 25 MG 25 MG 03-13 t} 25 MG 00:00: 00:00 00 :00 Jardiance Jardiance 2021- No 1{table QD Jardiance 25 MG 25 MG 8-29 11-26 t} 25 MG 00:00: 00:00 00 :00 Jardiance Jardiance 2021- No 1{table QD Jardiance 25 MG 25 MG 03-13 t} 25 MG 00:00: 00:00 00 :00 Jardiance Jardiance 2021- No 1{table QD Jardiance 25 MG 25 MG 03-13 t} 25 MG 00:00: 00:00 00 :00 Gabapentin Gabapentin No 1{capsu QD Gabapentin 300 MG 300 MG 12-14 le} 300 MG 00:00: 00 hydrALAZINE hydrALAZINE No 1{table TID hydrALAZIN HCl 25 MG HCl 25 MG 302 t_with_ E HCl 25 00:00: food} MG 00 scopolamine 2020-07- No 1.5mg Place [address] (TRANSDERM- 2 12-07 patch (1.5 L ukes SCOP) 1 mg 00:00: 23:59 mg total) M edical over 3 days 00 :00 onto the Cent er patch skin every third day. scopolamine 2020-07- No 1.5mg Place [address] (TRANSDERM- 2-07 12-07 patch (1.5 L ukes SCOP) 1 mg [...] Center times daily with breakfast and dinner. glipiZIDE 2020-07 Yes 10mg Take 10 mg [...] Take [address] (ADVIL,MOTR 08-21 12-06 mg by [facility] IN) 100 MG 12:02: 00:00 mouth Medic al tablet 21 :00 every 6 Center (six) hours as needed for Fever. acetaminoph 2020-07- No 650mg Take [address] en 08-21 tablets [facility] (TYLENOL) 00:00: 23:59 (650 mg Medi jonathan 325 MG 00 :00 total) by Center tablet mouth every 6 (six) hours as needed for Pain for up to 360 days. acetaminoph 2020-07- No 650mg Take [address] en 08-21 tablets [facility] (TYLENOL) 00:00: 23:59 (650 mg Medi jonathan 325 MG 00 :00 total) by Center tablet mouth every 6 (six) hours as needed for Pain for up to 360 days. ibuprofen 2020-07- No 200mg Take [address] (ADVIL,MOTR -12 25-16 tablet [facility] IN) 200 MG 00:00: 23:59 (200 mg Med ical tablet 00 :00 total) by Center mouth every 6 (six) hours as needed for Pain for up to 10 days. docusate 2020-07- No 100mg Take 1 [facility]I S t sodium 08-21-16 capsule [facility] (COLACE) 00:00: 23:59 (100 mg Medic al 100 MG 00 :00 total) by Center capsule mouth 2 (two) times daily as needed for Constipati on for up to 10 days. ondansetron 2020-07 No 4mg Take [address] (ZOFRAN) 4 08-21 tablet (4 Makayla es MG tablet 00:00: 23:59 mg total) Me dical 00 :00 by mouth 3 Center (three) times daily as needed for Nausea for up to 7 days. polyethylen 2020-07 No 17g Take [address] e glycol 08-21 by mouth [facility] (GLYCOLAX) 00:00: 23:59 daily as Me dical 17 gram 00 :00 needed for Center packet up to 3 days. Victoza Victoza 2019- No Bel Inject 0.6 Common 02-12 Rai mg/day x 1 Spirit 00:00: 00:00 week then - CHI 00 :[address] mg/day. [facility] Max 1.8 Medical mg/day Center Hydrocortis Hydrocortis 2019- No Bel 1 Common one one 02-12 Rai applicatio Spirit 00:00: 00:00 n - CHI 00 :00 [facility] Ketoconazol Ketoconazol 2019- No Bel 1 Common e e 02-12 Rai applicatio Spirit 00:00: 00:00 n - CHI 00 :00 [facility] Stacy Stacy Yes Bel USE ONE Common Contour Contour Rai STRIP TO Spir it Next Test Next Test CHECK - CH I GLUCOSE St THREE [facility] TIMES Medical DAILY Center Lovastatin Lovastatin Yes Bel 1 tablet Common Rai with the Spirit evening - CHI meal [facility] Losartan Losartan Yes Bel 1 tablet C ommon Potassium Potassium Rai Spir it - CHI [facility] GlipiZIDE GlipiZIDE Yes Bel 1 tablet Common Rai 30 minutes Spirit before - CHI breakfast [facility] MetFORMIN MetFORMIN Yes Bel 2 tablet Common HCl ER HCl ER Rai with meal Spiri t - CHI [facility] Contour Contour No Contour Next Test - Next Test - Next Test - metFORMIN metFORMIN No metFORMIN HCl ER 500 HCl ER 500 HCl ER 500 MG MG MG amLODIPine amLODIPine No 1{table QD amLODIPine Besylate 10 Besylate 10 t} Besylate MG MG 10 MG hydrALAZINE hydrALAZINE No 2{table BID hydrALAZIN HCl 10 MG HCl 10 MG t_with_ E HCl 10 food} MG Lovastatin Lovastatin No QD Lovastatin 40 MG 40 MG 40 MG glipiZIDE glipiZIDE No BID glipiZIDE 10 MG 10 MG 10 MG amLODIPine amLODIPine No amLODIPine Besylate 10 Besylate 10 Besylate MG MG 10 MG glipiZIDE glipiZIDE No glipiZIDE 10 MG 10 MG 10 MG Gabapentin Gabapentin No 1{capsu QD Gabapentin 300 MG 300 MG le} 300 MG Losartan Losartan No Losartan Potassium Potassium Potassium 100 MG 100 MG 100 MG Gabapentin Gabapentin No Gabapentin 300 MG 300 MG 300 MG Lovastatin Lovastatin No Lovastatin 40 MG 40 MG 40 MG Losartan Losartan No 1{table QD Losartan Potassium Potassium t} Potassium 100 MG 100 MG 100 MG metFORMIN metFORMIN No BID metFORMIN HCl ER 500 HCl ER 500 HCl ER 500 MG MG MG hydrALAZINE hydrALAZINE No hydrALAZIN HCl 25 MG HCl 25 MG E HCl 25 MG Losartan Losartan No 1{table QD Losartan Potassium Potassium t} Potassium 100 MG 100 MG 100 MG amLODIPine amLODIPine No 1{table QD amLODIPine Besylate 10 Besylate 10 t} Besylate MG MG 10 MG Amoxicillin Amoxicillin No 1{table BID Amoxicilli -Pot -Pot t} n-Pot Clavulanate Clavulanate Clavulanat 875-125 MG 875-125 MG e 875-125 MG Lovastatin Lovastatin No Lovastatin 40 MG 40 MG 40 MG Losartan Losartan No Losartan Potassium Potassium Potassium 100 MG 100 MG 100 MG FreeStyle FreeStyle No FreeStyle Lizeth 2 Lizeth 2 Lizeth 2 Sensor Sensor Sensor Systm - Systm - Systm - metFORMIN metFORMIN No BID metFORMIN HCl ER 500 HCl ER 500 HCl ER 500 MG MG MG glipiZIDE glipiZIDE No BID glipiZIDE 10 MG 10 MG 10 MG glipiZIDE glipiZIDE No glipiZIDE 10 MG 10 MG 10 MG Stacy Stacy No Stacy Contour Contour Contour Next Test - Next Test - Next Test - metFORMIN metFORMIN No BID metFORMIN HCl ER 500 HCl ER 500 HCl ER 500 MG MG MG hydrALAZINE hydrALAZINE No 2{table BID hydrALAZIN HCl 10 MG HCl 10 MG t_with_ E HCl 10 food} MG FreeStyle FreeStyle No FreeStyle Lizeth 2 Lizeth 2 Lizeth 2 [place] [employer] - Victoza 18 Victoza 18 No QD Victoza 18 MG/3ML MG/3ML MG/3ML Lovastatin Lovastatin No QD Lovastatin 40 MG 40 MG 40 MG amLODIPine amLODIPine No 1{table QD amLODIPine Besylate 10 Besylate 10 t} Besylate MG MG 10 MG Amoxicillin Amoxicillin No 1{table BID Amoxicilli -Pot -Pot t} n-Pot Clavulanate Clavulanate Clavulanat 875-125 MG 875-125 MG e 875-125 MG Lovastatin Lovastatin No Lovastatin 40 MG 40 MG 40 MG Losartan Losartan No Losartan Potassium Potassium Potassium 100 MG 100 MG 100 MG FreeStyle FreeStyle No FreeStyle Lizeth 2 Lizeth 2 Lizeth 2 Sensor Sensor Sensor [employer] - hydrALAZINE hydrALAZINE No 2{table BID hydrALAZIN HCl 10 MG HCl 10 MG t_with_ E HCl 10 food} MG metFORMIN metFORMIN No BID metFORMIN HCl ER 500 HCl ER 500 HCl ER 500 MG MG MG glipiZIDE glipiZIDE No glipiZIDE 10 MG 10 MG 10 MG Lovastatin Lovastatin No QD Lovastatin 40 MG 40 MG 40 MG metFORMIN metFORMIN No BID metFORMIN HCl ER 500 HCl ER 500 HCl ER 500 MG MG MG Stacy Stacy No Stacy Contour Contour Contour Next Test - Next Test - Next Test - FreeStyle FreeStyle No FreeStyle Lizeth 2 Lizeth 2 Lizeth 2 [place] [facility] - Victoza 18 Victoza 18 No QD Victoza 18 MG/3ML MG/3ML MG/3ML Losartan Losartan No 1{table QD Losartan Potassium Potassium t} Potassium 100 MG 100 MG 100 MG Losartan Losartan No Losartan Potassium Potassium Potassium 100 MG 100 MG 100 MG metFORMIN metFORMIN No metFORMIN HCl ER 500 HCl ER 500 HCl ER 500 MG MG MG Lovastatin Lovastatin No QD Lovastatin 40 MG 40 MG 40 MG Stacy Stacy No Stacy Contour Contour Contour Next Test - Next Test - Next Test - Losartan Losartan No 1{table QD Losartan Potassium Potassium t} Potassium 100 MG 100 MG 100 MG hydrALAZINE hydrALAZINE No 2{table BID hydrALAZIN HCl 10 MG HCl 10 MG t_with_ E HCl 10 food} MG Amoxicillin Amoxicillin No 1{table BID Amoxicilli -Pot -Pot t} n-Pot Clavulanate Clavulanate Clavulanat 875-125 MG 875-125 MG e 875-125 MG FreeStyle FreeStyle No FreeStyle Lizeth 2 Lizeth 2 Lizeth 2 [place] [employer] [place] - Syst - amLODIPine amLODIPine No 1{table QD amLODIPine Besylate 10 Besylate 10 t} Besylate MG MG 10 MG Lovastatin Lovastatin No Lovastatin 40 MG 40 MG 40 MG Victoza 18 Victoza 18 No QD Victoza 18 MG/3ML MG/3ML MG/3ML glipiZIDE glipiZIDE No BID glipiZIDE 10 MG 10 MG 10 MG FreeStyle FreeStyle No FreeStyle Lizeth 2 Lizeth 2 Lizeth 2 Sensor Sensor Sensor [employer]st[employer] - Syst - Syst - glipiZIDE glipiZIDE No glipiZIDE 10 MG 10 MG 10 MG Stacy Stacy No Stacy Contour Contour Contour Next Test - Next Test - Next Test - metFORMIN metFORMIN No QD metFORMIN HCl ER 500 HCl ER 500 HCl ER 500 MG MG MG Losartan Losartan No Losartan Potassium Potassium Potassium 100 MG 100 MG 100 MG Amoxicillin Amoxicillin No 1{table BID Amoxicilli -Pot -Pot t} n-Pot Clavulanate Clavulanate Clavulanat 875-125 MG 875-125 MG e 875-125 MG Losartan Losartan No 1{table QD Losartan Potassium Potassium t} Potassium 100 MG 100 MG 100 MG Lovastatin Lovastatin No QD Lovastatin 40 MG 40 MG 40 MG amLODIPine amLODIPine No 1{table QD amLODIPine Besylate 10 Besylate 10 t} Besylate MG MG 10 MG FreeStyle FreeStyle No FreeStyle Lizeth 2 Lizeth 2 Lizeth 2 Sensor Sensor Sensor [employer]st[employer] - Syst - Syst - glipiZIDE glipiZIDE No BID glipiZIDE 10 MG 10 MG 10 MG glipiZIDE glipiZIDE No glipiZIDE 10 MG 10 MG 10 MG metFORMIN metFORMIN No metFORMIN HCl ER 500 HCl ER 500 HCl ER 500 MG MG MG hydrALAZINE hydrALAZINE No 2{table BID hydrALAZIN HCl 10 MG HCl 10 MG t_with_ E HCl 10 food} MG FreeStyle FreeStyle No FreeStyle Lizeth 2 Lizeth 2 Lizeth 2 [place] Systm - Systm - Systm - Lovastatin Lovastatin No Lovastatin 40 MG 40 MG 40 MG Victoza 18 Victoza 18 No QD Victoza 18 MG/3ML MG/3ML MG/3ML Stacy Stacy No Stacy Contour Contour Contour Next Test - Next Test - Next Test - metFORMIN metFORMIN No BID metFORMIN HCl ER 500 HCl ER 500 HCl ER 500 MG MG MG Losartan Losartan No 1{table QD Losartan Potassium Potassium t} Potassium 100 MG 100 MG 100 MG glipiZIDE glipiZIDE No 1{table BID glipiZIDE 10 MG 10 MG t} 10 MG Lovastatin Lovastatin No QD Lovastatin 40 MG 40 MG 40 MG amLODIPine amLODIPine No 1{table QD amLODIPine Besylate 10 Besylate 10 t} Besylate MG MG 10 MG hydrALAZINE hydrALAZINE No 2{table BID hydrALAZIN HCl 10 MG HCl 10 MG t_with_ E HCl 10 food} MG Stacy Stacy No Stacy Contour Contour Contour Next Test - Next Test - Next Test - metFORMIN metFORMIN No BID metFORMIN HCl ER 500 HCl ER 500 HCl ER 500 MG MG MG Losartan Losartan No 1{table QD Losartan Potassium Potassium t} Potassium 100 MG 100 MG 100 MG glipiZIDE glipiZIDE No 1{table BID glipiZIDE 10 MG 10 MG t} 10 MG amLODIPine amLODIPine No 1{table QD amLODIPine Besylate 10 Besylate 10 t} Besylate MG MG 10 MG hydrALAZINE hydrALAZINE No 2{table BID hydrALAZIN HCl 10 MG HCl 10 MG t_with_ E HCl 10 food} MG Lovastatin Lovastatin No QD Lovastatin 40 MG 40 MG 40 MG hydrALAZINE hydrALAZINE No 1{table BID hydrALAZIN HCl 25 MG HCl 25 MG t_with_ E HCl 25 food} MG Stacy Stacy No Stacy Contour Contour Contour Next Test - Next Test - Next Test - metFORMIN metFORMIN No BID metFORMIN HCl ER 500 HCl ER 500 HCl ER 500 MG MG MG Losartan Losartan No 1{table QD Losartan Potassium Potassium t} Potassium 100 MG 100 MG 100 MG glipiZIDE glipiZIDE No 1{table BID glipiZIDE 10 MG 10 MG t} 10 MG amLODIPine amLODIPine No 1{table QD amLODIPine Besylate 10 Besylate 10 t} Besylate MG MG 10 MG hydrALAZINE hydrALAZINE No 2{table BID hydrALAZIN HCl 10 MG HCl 10 MG t_with_ E HCl 10 food} MG Lovastatin Lovastatin No QD Lovastatin 40 MG 40 MG 40 MG hydrALAZINE hydrALAZINE No 1{table BID hydrALAZIN HCl 25 MG HCl 25 MG t_with_ E HCl 25 food} MG amLODIPine amLODIPine No 1{table QD amLODIPine Besylate 10 Besylate 10 t} Besylate MG MG 10 MG Losartan Losartan No 1{table QD Losartan Potassium Potassium t} Potassium 100 MG 100 MG 100 MG Lovastatin Lovastatin No QD Lovastatin 40 MG 40 MG 40 MG hydrALAZINE hydrALAZINE No 2{table BID hydrALAZIN HCl 10 MG HCl 10 MG t_with_ E HCl 10 food} MG metFORMIN metFORMIN No BID metFORMIN HCl ER 500 HCl ER 500 HCl ER 500 MG MG MG Stacy Stacy No Stacy Contour Contour Contour Next Test - Next Test - Next Test - hydrALAZINE hydrALAZINE No 1{table BID hydrALAZIN HCl 25 MG HCl 25 MG t_with_ E HCl 25 food} MG glipiZIDE glipiZIDE No 1{table BID glipiZIDE 10 MG 10 MG t} 10 MG amLODIPine amLODIPine No 1{table QD amLODIPine Besylate 10 Besylate 10 t} Besylate MG MG 10 MG Lovastatin Lovastatin No Lovastatin 40 MG 40 MG 40 MG Losartan Losartan No 1{table QD Losartan Potassium Potassium t} Potassium 100 MG 100 MG 100 MG Losartan Losartan No Losartan Potassium Potassium Potassium 100 MG 100 MG 100 MG amLODIPine amLODIPine No amLODIPine Besylate 10 Besylate 10 Besylate MG MG 10 MG metFORMIN metFORMIN No BID metFORMIN HCl ER 500 HCl ER 500 HCl ER 500 MG MG MG hydrALAZINE hydrALAZINE No hydrALAZIN HCl 25 MG HCl 25 MG E HCl 25 MG metFORMIN metFORMIN No QD metFORMIN HCl ER 500 HCl ER 500 HCl ER 500 MG MG MG hydrALAZINE hydrALAZINE No 2{table BID hydrALAZIN HCl 10 MG HCl 10 MG t_with_ E HCl 10 food} MG glipiZIDE glipiZIDE No BID glipiZIDE 10 MG 10 MG 10 MG glipiZIDE glipiZIDE No BID glipiZIDE 10 MG 10 MG 10 MG Stacy Stacy No Stacy Contour Contour Contour Next Test - Next Test - Next Test - Lovastatin Lovastatin No QD Lovastatin 40 MG 40 MG 40 MG hydrALAZINE hydrALAZINE No hydrALAZIN HCl 25 MG HCl 25 MG E HCl 25 MG hydrALAZINE hydrALAZINE No 2{table BID hydrALAZIN HCl 10 MG HCl 10 MG t_with_ E HCl 10 food} MG Contour Contour No Contour Next Test - Next Test - Next Test - glipiZIDE glipiZIDE No glipiZIDE 10 MG 10 MG 10 MG Gabapentin Gabapentin No 1{capsu QD Gabapentin 300 MG 300 MG le} 300 MG Losartan Losartan No 1{table QD Losartan Potassium Potassium t} Potassium 100 MG 100 MG 100 MG Lovastatin Lovastatin No QD Lovastatin 40 MG 40 MG 40 MG Losartan Losartan No Losartan Potassium Potassium Potassium 100 MG 100 MG 100 MG glipiZIDE glipiZIDE No BID glipiZIDE 10 MG 10 MG 10 MG amLODIPine amLODIPine No amLODIPine Besylate 10 Besylate 10 Besylate MG MG 10 MG amLODIPine amLODIPine No 1{table QD amLODIPine Besylate 10 Besylate 10 t} Besylate MG MG 10 MG metFORMIN metFORMIN No metFORMIN HCl ER 500 HCl ER 500 HCl ER 500 MG MG MG Lovastatin Lovastatin No Lovastatin 40 MG 40 MG 40 MG metFORMIN metFORMIN No QD metFORMIN HCl ER 500 HCl ER 500 HCl ER 500 MG MG MG hydrALAZINE hydrALAZINE No hydrALAZIN HCl 25 MG HCl 25 MG E HCl 25 MG hydrALAZINE hydrALAZINE No 2{table BID hydrALAZIN HCl 10 MG HCl 10 MG t_with_ E HCl 10 food} MG Contour Contour No Contour Next Test - Next Test - Next Test - glipiZIDE glipiZIDE No glipiZIDE 10 MG 10 MG 10 MG Gabapentin Gabapentin No 1{capsu QD Gabapentin 300 MG 300 MG le} 300 MG Losartan Losartan No 1{table QD Losartan Potassium Potassium t} Potassium 100 MG 100 MG 100 MG Lovastatin Lovastatin No QD Lovastatin 40 MG 40 MG 40 MG Losartan Losartan No Losartan Potassium Potassium Potassium 100 MG 100 MG 100 MG glipiZIDE glipiZIDE No BID glipiZIDE 10 MG 10 MG 10 MG amLODIPine amLODIPine No amLODIPine Besylate 10 Besylate 10 Besylate MG MG 10 MG amLODIPine amLODIPine No 1{table QD amLODIPine Besylate 10 Besylate 10 t} Besylate MG MG 10 MG metFORMIN metFORMIN No metFORMIN HCl ER 500 HCl ER 500 HCl ER 500 MG MG MG Lovastatin Lovastatin No Lovastatin 40 MG 40 MG 40 MG metFORMIN metFORMIN No QD metFORMIN HCl ER 500 HCl ER 500 HCl ER 500 MG MG MG Losartan Losartan No 1{table QD Losartan Potassium Potassium t} Potassium 100 MG 100 MG 100 MG Lovastatin Lovastatin No Lovastatin 40 MG 40 MG 40 MG glipiZIDE glipiZIDE No glipiZIDE 10 MG 10 MG 10 MG amLODIPine amLODIPine No amLODIPine Besylate 10 Besylate 10 Besylate MG MG 10 MG Gabapentin Gabapentin No Gabapentin 300 MG 300 MG 300 MG metFORMIN metFORMIN No metFORMIN HCl ER 500 HCl ER 500 HCl ER 500 MG MG MG amLODIPine amLODIPine No 1{table QD amLODIPine Besylate 10 Besylate 10 t} Besylate MG MG 10 MG Losartan Losartan No Losartan Potassium Potassium Potassium 100 MG 100 MG 100 MG glipiZIDE glipiZIDE No BID glipiZIDE 10 MG 10 MG 10 MG Lovastatin Lovastatin No QD Lovastatin 40 MG 40 MG 40 MG metFORMIN metFORMIN No QD metFORMIN HCl ER 500 HCl ER 500 HCl ER 500 MG MG MG hydrALAZINE hydrALAZINE No 2{table BID hydrALAZIN HCl 10 MG HCl 10 MG t_with_ E HCl 10 food} MG Gabapentin Gabapentin No 1{capsu QD Gabapentin 300 MG 300 MG le} 300 MG hydrALAZINE hydrALAZINE No hydrALAZIN HCl 25 MG HCl 25 MG E HCl 25 MG Contour Contour No Contour Next Test - Next Test - Next Test - Losartan Losartan No 1{table QD Losartan Potassium Potassium t} Potassium 100 MG 100 MG 100 MG metFORMIN metFORMIN No QD metFORMIN HCl ER 500 HCl ER 500 HCl ER 500 MG MG MG glipiZIDE glipiZIDE No glipiZIDE 10 MG 10 MG 10 MG amLODIPine amLODIPine No amLODIPine Besylate 10 Besylate 10 Besylate MG MG 10 MG Gabapentin Gabapentin No Gabapentin 300 MG 300 MG 300 MG metFORMIN metFORMIN No metFORMIN HCl ER 500 HCl ER 500 HCl ER 500 MG MG MG amLODIPine amLODIPine No 1{table QD amLODIPine Besylate 10 Besylate 10 t} Besylate MG MG 10 MG Losartan Losartan No Losartan Potassium Potassium Potassium 100 MG 100 MG 100 MG glipiZIDE glipiZIDE No BID glipiZIDE 10 MG 10 MG 10 MG Lovastatin Lovastatin No QD Lovastatin 40 MG 40 MG 40 MG Lovastatin Lovastatin No Lovastatin 40 MG 40 MG 40 MG hydrALAZINE hydrALAZINE No 2{table BID hydrALAZIN HCl 10 MG HCl 10 MG t_with_ E HCl 10 food} MG Gabapentin Gabapentin No 1{capsu QD Gabapentin 300 MG 300 MG le} 300 MG hydrALAZINE hydrALAZINE No hydrALAZIN HCl 25 MG HCl 25 MG E HCl 25 MG Contour Contour No Contour Next Test - Next Test - Next Test - hydrALAZINE hydrALAZINE No hydrALAZIN HCl 25 MG HCl 25 MG E HCl 25 MG Gabapentin Gabapentin No Gabapentin 300 MG 300 MG 300 MG Gabapentin Gabapentin No 1{capsu QD Gabapentin 300 MG 300 MG le} 300 MG glipiZIDE glipiZIDE No BID glipiZIDE 10 MG 10 MG 10 MG amLODIPine amLODIPine No 1{table QD amLODIPine Besylate 10 Besylate 10 t} Besylate MG MG 10 MG hydrALAZINE hydrALAZINE No 2{table BID hydrALAZIN HCl 10 MG HCl 10 MG t_with_ E HCl 10 food} MG Losartan Losartan No 1{table QD Losartan Potassium Potassium t} Potassium 100 MG 100 MG 100 MG metFORMIN metFORMIN No metFORMIN HCl ER 500 HCl ER 500 HCl ER 500 MG MG MG Lovastatin Lovastatin No Lovastatin 40 MG 40 MG 40 MG amLODIPine amLODIPine No amLODIPine Besylate 10 Besylate 10 Besylate MG MG 10 MG Losartan Losartan No Losartan Potassium Potassium Potassium 100 MG 100 MG 100 MG Contour Contour No Contour Next Test - Next Test - Next Test - Lovastatin Lovastatin No QD Lovastatin 40 MG 40 MG 40 MG metFORMIN metFORMIN No BID metFORMIN HCl ER 500 HCl ER 500 HCl ER 500 MG MG MG glipiZIDE glipiZIDE No glipiZIDE 10 MG 10 MG 10 MG hydrALAZINE hydrALAZINE No hydrALAZIN HCl 25 MG HCl 25 MG E HCl 25 MG Gabapentin Gabapentin No Gabapentin 300 MG 300 MG 300 MG Gabapentin Gabapentin No 1{capsu QD Gabapentin 300 MG 300 MG le} 300 MG glipiZIDE glipiZIDE No BID glipiZIDE 10 MG 10 MG 10 MG amLODIPine amLODIPine No 1{table QD amLODIPine Besylate 10 Besylate 10 t} Besylate MG MG 10 MG hydrALAZINE hydrALAZINE No 2{table BID hydrALAZIN HCl 10 MG HCl 10 MG t_with_ E HCl 10 food} MG Losartan Losartan No 1{table QD Losartan Potassium Potassium t} Potassium 100 MG 100 MG 100 MG metFORMIN metFORMIN No metFORMIN HCl ER 500 HCl ER 500 HCl ER 500 MG MG MG Lovastatin Lovastatin No Lovastatin 40 MG 40 MG 40 MG amLODIPine amLODIPine No amLODIPine Besylate 10 Besylate 10 Besylate MG MG 10 MG Losartan Losartan No Losartan Potassium Potassium Potassium 100 MG 100 MG 100 MG Contour Contour No Contour Next Test - Next Test - Next Test - Lovastatin Lovastatin No QD Lovastatin 40 MG 40 MG 40 MG metFORMIN metFORMIN No BID metFORMIN HCl ER 500 HCl ER 500 HCl ER 500 MG MG MG glipiZIDE glipiZIDE No glipiZIDE 10 MG 10 MG 10 MG glipiZIDE glipiZIDE No BID glipiZIDE 10 MG 10 MG 10 MG amLODIPine amLODIPine No 1{table QD amLODIPine Besylate 10 Besylate 10 t} Besylate MG MG 10 MG Lovastatin Lovastatin No Lovastatin 40 MG 40 MG 40 MG metFORMIN metFORMIN No BID metFORMIN HCl ER 500 HCl ER 500 HCl ER 500 MG MG MG amLODIPine amLODIPine No amLODIPine Besylate 10 Besylate 10 Besylate MG MG 10 MG Contour Contour No Contour Next Test - Next Test - Next Test - Gabapentin Gabapentin No 1{capsu QD Gabapentin 300 MG 300 MG le} 300 MG Gabapentin Gabapentin No Gabapentin 300 MG 300 MG 300 MG metFORMIN metFORMIN No metFORMIN HCl ER 500 HCl ER 500 HCl ER 500 MG MG MG glipiZIDE glipiZIDE No glipiZIDE 10 MG 10 MG 10 MG hydrALAZINE hydrALAZINE No 2{table BID hydrALAZIN HCl 10 MG HCl 10 MG t_with_ E HCl 10 food} MG Losartan Losartan No Losartan Potassium Potassium Potassium 100 MG 100 MG 100 MG hydrALAZINE hydrALAZINE No hydrALAZIN HCl 25 MG HCl 25 MG E HCl 25 MG Contour Contour No Contour Next Test - Next Test - Next Test - metFORMIN metFORMIN No metFORMIN HCl ER 500 HCl ER 500 HCl ER 500 MG MG MG amLODIPine amLODIPine No 1{table QD amLODIPine Besylate 10 Besylate 10 t} Besylate MG MG 10 MG hydrALAZINE hydrALAZINE No 2{table BID hydrALAZIN HCl 10 MG HCl 10 MG t_with_ E HCl 10 food} MG Lovastatin Lovastatin No QD Lovastatin 40 MG 40 MG 40 MG glipiZIDE glipiZIDE No BID glipiZIDE 10 MG 10 MG 10 MG amLODIPine amLODIPine No amLODIPine Besylate 10 Besylate 10 Besylate MG MG 10 MG glipiZIDE glipiZIDE No glipiZIDE 10 MG 10 MG 10 MG Gabapentin Gabapentin No 1{capsu QD Gabapentin 300 MG 300 MG le} 300 MG Losartan Losartan No Losartan Potassium Potassium Potassium 100 MG 100 MG 100 MG Gabapentin Gabapentin No Gabapentin 300 MG 300 MG 300 MG Lovastatin Lovastatin No Lovastatin 40 MG 40 MG 40 MG Losartan Losartan No 1{table QD Losartan Potassium Potassium t} Potassium 100 MG 100 MG 100 MG metFORMIN metFORMIN No BID metFORMIN HCl ER 500 HCl ER 500 HCl ER 500 MG MG MG hydrALAZINE hydrALAZINE No hydrALAZIN HCl 25 MG HCl 25 MG E HCl 25 MG Contour Contour No Contour Next Test - Next Test - Next Test - metFORMIN metFORMIN No metFORMIN HCl ER 500 HCl ER 500 HCl ER 500 MG MG MG amLODIPine amLODIPine No 1{table QD amLODIPine Besylate 10 Besylate 10 t} Besylate MG MG 10 MG hydrALAZINE hydrALAZINE No 2{table BID hydrALAZIN HCl 10 MG HCl 10 MG t_with_ E HCl 10 food} MG Lovastatin Lovastatin No QD Lovastatin 40 MG 40 MG 40 MG glipiZIDE glipiZIDE No BID glipiZIDE 10 MG 10 MG 10 MG amLODIPine amLODIPine No amLODIPine Besylate 10 Besylate 10 Besylate MG MG 10 MG glipiZIDE glipiZIDE No glipiZIDE 10 MG 10 MG 10 MG Gabapentin Gabapentin No 1{capsu QD Gabapentin 300 MG 300 MG le} 300 MG Losartan Losartan No Losartan Potassium Potassium Potassium 100 MG 100 MG 100 MG Gabapentin Gabapentin No Gabapentin 300 MG 300 MG 300 MG Lovastatin Lovastatin No Lovastatin 40 MG 40 MG 40 MG Losartan Losartan No 1{table QD Losartan Potassium Potassium t} Potassium 100 MG 100 MG 100 MG metFORMIN metFORMIN No BID metFORMIN HCl ER 500 HCl ER 500 HCl ER 500 MG MG MG hydrALAZINE hydrALAZINE No hydrALAZIN HCl 25 MG HCl 25 MG E HCl 25 MG Gabapentin Gabapentin No 1{capsu QD Gabapentin 300 MG 300 MG le} 300 MG Lovastatin Lovastatin No Lovastatin 40 MG 40 MG 40 MG glipiZIDE glipiZIDE No BID glipiZIDE 10 MG 10 MG 10 MG amLODIPine amLODIPine No 1{table QD amLODIPine Besylate 10 Besylate 10 t} Besylate MG MG 10 MG hydrALAZINE hydrALAZINE No 2{table BID hydrALAZIN HCl 10 MG HCl 10 MG t_with_ E HCl 10 food} MG Losartan Losartan No 1{table QD Losartan Potassium Potassium t} Potassium 100 MG 100 MG 100 MG hydrALAZINE hydrALAZINE No hydrALAZIN HCl 25 MG HCl 25 MG E HCl 25 MG Losartan Losartan No Losartan Potassium Potassium Potassium 100 MG 100 MG 100 MG Contour Contour No Contour Next Test - Next Test - Next Test - glipiZIDE glipiZIDE No glipiZIDE 10 MG 10 MG 10 MG metFORMIN metFORMIN No metFORMIN HCl ER 500 HCl ER 500 HCl ER 500 MG MG MG Gabapentin Gabapentin No Gabapentin 300 MG 300 MG 300 MG Lovastatin Lovastatin No QD Lovastatin 40 MG 40 MG 40 MG xiga xiga No QD Farxiga 10mg 10mg 10mg amLODIPine amLODIPine No amLODIPine Besylate 10 Besylate 10 Besylate MG MG 10 MG Gabapentin Gabapentin No 1{capsu QD Gabapentin 300 MG 300 MG le} 300 MG Lovastatin Lovastatin No Lovastatin 40 MG 40 MG 40 MG glipiZIDE glipiZIDE No BID glipiZIDE 10 MG 10 MG 10 MG amLODIPine amLODIPine No 1{table QD amLODIPine Besylate 10 Besylate 10 t} Besylate MG MG 10 MG hydrALAZINE hydrALAZINE No 2{table BID hydrALAZIN HCl 10 MG HCl 10 MG t_with_ E HCl 10 food} MG Losartan Losartan No 1{table QD Losartan Potassium Potassium t} Potassium 100 MG 100 MG 100 MG hydrALAZINE hydrALAZINE No hydrALAZIN HCl 25 MG HCl 25 MG E HCl 25 MG Losartan Losartan No Losartan Potassium Potassium Potassium 100 MG 100 MG 100 MG metFORMIN metFORMIN No metFORMIN HCl ER 500 HCl ER 500 HCl ER 500 MG MG MG glipiZIDE glipiZIDE No glipiZIDE 10 MG 10 MG 10 MG Farxiga xiga No QD Farxiga 10mg 10mg 10mg Gabapentin Gabapentin No Gabapentin 300 MG 300 MG 300 MG Lovastatin Lovastatin No QD Lovastatin 40 MG 40 MG 40 MG Contour Contour No Contour Next Test - Next Test - Next Test - amLODIPine amLODIPine No amLODIPine Besylate 10 Besylate 10 Besylate MG MG 10 MG amLODIPine amLODIPine No amLODIPine Besylate 10 Besylate 10 Besylate MG MG 10 MG Farxiga Farxiga No QD Farxiga 10mg 10mg 10mg metFORMIN metFORMIN No BID metFORMIN HCl ER 500 HCl ER 500 HCl ER 500 MG MG MG amLODIPine amLODIPine No 1{table QD amLODIPine Besylate 10 Besylate 10 t} Besylate MG MG 10 MG metFORMIN metFORMIN No metFORMIN HCl ER 500 HCl ER 500 HCl ER 500 MG MG MG Lovastatin Lovastatin No QD Lovastatin 40 MG 40 MG 40 MG Losartan Losartan No Losartan Potassium Potassium Potassium 100 MG 100 MG 100 MG Lovastatin Lovastatin No Lovastatin 40 MG 40 MG 40 MG Contour Contour No Contour Next Test - Next Test - Next Test - Gabapentin Gabapentin No QD Gabapentin 300 MG 300 MG 300 MG glipiZIDE glipiZIDE No BID glipiZIDE 10 MG 10 MG 10 MG hydrALAZINE hydrALAZINE No hydrALAZIN HCl 25 MG HCl 25 MG E HCl 25 MG hydrALAZINE hydrALAZINE No 2{table BID hydrALAZIN HCl 10 MG HCl 10 MG t_with_ E HCl 10 food} MG Losartan Losartan No 1{table QD Losartan Potassium Potassium t} Potassium 100 MG 100 MG 100 MG glipiZIDE glipiZIDE No glipiZIDE 10 MG 10 MG 10 MG amLODIPine amLODIPine No amLODIPine Besylate 10 Besylate 10 Besylate MG MG 10 MG glipiZIDE glipiZIDE No BID glipiZIDE 10 MG 10 MG 10 MG Losartan Losartan No 1{table QD Losartan Potassium Potassium t} Potassium 100 MG 100 MG 100 MG Gabapentin Gabapentin No Gabapentin 300 MG 300 MG 300 MG amLODIPine amLODIPine No 1{table QD amLODIPine Besylate 10 Besylate 10 t} Besylate MG MG 10 MG Contour Contour No Contour Next Test - Next Test - Next Test - Losartan Losartan No Losartan Potassium Potassium Potassium 100 MG 100 MG 100 MG Lovastatin Lovastatin No Lovastatin 40 MG 40 MG 40 MG Lovastatin Lovastatin No QD Lovastatin 40 MG 40 MG 40 MG hydrALAZINE hydrALAZINE No hydrALAZIN HCl 25 MG HCl 25 MG E HCl 25 MG metFORMIN metFORMIN No BID metFORMIN HCl ER 500 HCl ER 500 HCl ER 500 MG MG MG hydrALAZINE hydrALAZINE No 2{table BID hydrALAZIN HCl 10 MG HCl 10 MG t_with_ E HCl 10 food} MG metFORMIN metFORMIN No metFORMIN HCl ER 500 HCl ER 500 HCl ER 500 MG MG MG Farxiga Farxiga No QD Farxiga 10mg 10mg 10mg glipiZIDE glipiZIDE No glipiZIDE 10 MG 10 MG 10 MG glipiZIDE glipiZIDE No BID glipiZIDE 10 MG 10 MG 10 MG amLODIPine amLODIPine No 1{table QD amLODIPine Besylate 10 Besylate 10 t} Besylate MG MG 10 MG Lovastatin Lovastatin No Lovastatin 40 MG 40 MG 40 MG metFORMIN metFORMIN No BID metFORMIN HCl ER 500 HCl ER 500 HCl ER 500 MG MG MG amLODIPine amLODIPine No amLODIPine Besylate 10 Besylate 10 Besylate MG MG 10 MG Contour Contour No Contour Next Test - Next Test - Next Test - Gabapentin Gabapentin No 1{capsu QD Gabapentin 300 MG 300 MG le} 300 MG Gabapentin Gabapentin No Gabapentin 300 MG 300 MG 300 MG metFORMIN metFORMIN No metFORMIN HCl ER 500 HCl ER 500 HCl ER 500 MG MG MG glipiZIDE glipiZIDE No glipiZIDE 10 MG 10 MG 10 MG hydrALAZINE hydrALAZINE No 2{table BID hydrALAZIN HCl 10 MG HCl 10 MG t_with_ E HCl 10 food} MG Losartan Losartan No Losartan Potassium Potassium Potassium 100 MG 100 MG 100 MG hydrALAZINE hydrALAZINE No hydrALAZIN HCl 25 MG HCl 25 MG E HCl 25 MG Immunizations Ordered Immunization Filled Immunization Date Status Commen ts Source Name Name Flucelvax - single Flucelvax - single 2022-05-15 [facility]pleted [facility] Flucelvax - single Flucelvax - single 2022-05-15 Completed [facility] dose syringe 09:37:00 - [facility] Flucelvax - single Flucelvax - single 2022-05-15 Completed [facility] dose syringe dose syringe 09:37:00 - [facility] Flucelvax - single Flucelvax - single 2022-05-15 Completed [facility] dose [facility] dose syringe 09:37:00 - [facility] Flucelvax - single Flucelvax - single 2020-05-17 Completed [facility] dose syringe dose syringe 10:08:00 - [facility] Flucelvax - single Flucelvax - single 2020-05-17 Completed [facility] dose syringe dose syringe 10:08:00 - [facility] Flucelvax - single Flucelvax - single 2020-05-17 Completed [facility] dose syringe dose syringe 10:08:00 - [facility] Flucelvax - single Flucelvax - single 2020-05-17 Completed [facility] dose syringe dose syringe 10:08:00 - [facility] Flucelvax - single Flucelvax - single 2020-05-17 Completed [facility] dose syringe dose syringe 10:08:00 - [facility] Flucelvax - single Flucelvax - single 2020-05-17 Completed [facility] dose syringe dose syringe 10:08:00 - [facility] Flucelvax - single Flucelvax - single 2020-05-17 Completed [facility] dose syringe dose syringe 10:08:00 - [facility] Flucelvax - single Flucelvax - single 2020-05-17 Completed [facility] dose syringe dose syringe 10:08:00 - [facility] Flucelvax - single Flucelvax - single 2020-05-17 Completed [facility] dose syringe dose syringe 10:08:00 - [facility] Flucelvax - single Flucelvax - single 2020-05-17 Completed [facility] dose syringe dose syringe 10:08:00 - [facility] Flucelvax - single Flucelvax - single 2020-05-17 Completed [facility] dose syringe dose syringe 10:08:00 - [facility] Flucelvax - single Flucelvax - single 2020-05-17 Completed [facility] dose syringe dose syringe 10:08:00 - [facility] Flucelvax - single Flucelvax - single 2020-05-17 Completed [facility] dose syringe dose syringe 10:08:00 - [facility] Flucelvax - single Flucelvax - single 2020-05-17 Completed [facility] dose syringe dose syringe 10:08:00 - [facility] Flucelvax - single Flucelvax - single 2020-05-17 Completed [facility] dose syringe dose syringe 10:08:00 - [facility] Flucelvax - single Flucelvax - single 2020-05-17 Completed [facility] dose syringe dose syringe 10:08:00 - [facility] Flucelvax - single Flucelvax - single 2020-05-17 Completed [facility] dose syringe dose syringe 10:08:00 - [facility] Flucelvax - single Flucelvax - single 2020-05-17 Completed [facility] dose syringe dose syringe 10:08:00 - [facility] Flucelvax - single Flucelvax - single 2020-05-17 Completed [facility] dose syringe dose syringe 10:08:00 - [facility] Flucelvax - single Flucelvax - single 2020-05-17 Completed [facility] dose syringe dose syringe 10:08:00 - [facility] Flucelvax - single Flucelvax - single 2020-05-17 Completed [facility] dose syringe dose syringe 10:08:00 - [facility] Flucelvax - single Flucelvax - single 2020-05-17 Completed [facility] dose syringe dose syringe 10:08:00 - [facility] Flucelvax - single Flucelvax - single 2020-05-17 Completed [facility] dose syringe dose syringe 10:08:00 - [facility] Flucelvax - single Flucelvax - single 2020-05-17 Completed [facility] dose syringe dose syringe 10:08:00 [facility] Vital Signs Vital Name Observation Time Observation Value Comments Source HEIGHT 2021-04-15 14:15:00 175.3 cm WEIGHT 2021-04-15 14:15:00 113.9 kg HEIGHT 2021-04-12 10:44:00 175.3 cm WEIGHT 2021-04-12 10:44:00 113.399 kg height 2022-05-15 09:40:00 68 [in_i] [facility] weight 2022-05-15 09:40:00 260.4 [lb_av] [facility] temperature 2022-05-15 09:40:00 97.2 [degF] [facility] bmi 2022-05-15 09:40:00 39.59 kg/m2 [facility] oximetry 2022-05-15 09:40:00 97 % [facility] respiratory rate 2022-05-15 09:40:00 18 /min Comm on [facility] blood pressure 2022-05-15 09:40:00 139 mm[Hg] [facility] - systolic [facility] blood pressure 2022-05-15 09:40:00 70 mm[Hg] [facility] - diastolic [facility] height 2022-04-12 11:10:00 68 [in_i] [facility] weight 2022-04-12 11:10:00 271.6 [lb_av] [facility] - [facility] temperature 2022-04-12 11:10:00 97.2 [degF] [facility] bmi 2022-04-12 11:10:00 41.29 kg/m2 [facility] oximetry 2022-04-12 11:10:00 96 % [facility] respiratory rate 2022-04-12 11:10:00 17 /min Comm on [facility] blood pressure 2022-04-12 11:10:00 135 mm[Hg] [facility] - systolic [facility] blood pressure 2022-04-12 11:10:00 77 mm[Hg] [facility] - diastolic [facility] height 2022-03-13 10:40:00 68 [in_i] [facility] weight 2022-03-13 10:40:00 264 [lb_av] [facility] temperature 2022-03-13 10:40:00 97.9 [degF] [facility] bmi 2022-03-13 10:40:00 40.14 kg/m2 [facility] oximetry 2022-03-13 10:40:00 96 % [facility] respiratory rate 2022-03-13 10:40:00 16 /min Comm on [facility] blood pressure 2022-03-13 10:40:00 132 mm[Hg] [facility] - systolic [facility] blood pressure 2022-03-13 10:40:00 78 mm[Hg] [facility] - diastolic [facility] height 2022-02-10 10:00:00 67 [in_i] [facility] weight 2022-02-10 10:00:00 263.1 [lb_av] [facility] temperature 2022-02-10 10:00:00 97.0 [degF] [facility] bmi 2022-02-10 10:00:00 41.2 kg/m2 [facility] 2022-02-10 10:00:00 97 % [facility] respiratory rate 2022-02-10 10:00:00 17 /min Comm on [facility] blood pressure 2022-02-10 10:00:00 134 mm[Hg] [facility] - systolic [facility] blood pressure 2022-02-10 10:00:00 85 mm[Hg] [facility] - diastolic [facility] height 2022-01-13 09:50:00 67 [in_i] [facility] weight 2022-01-13 09:50:00 268.0 [lb_av] [facility] temperature 2022-01-13 09:50:00 97.3 [degF] Common [facility] bmi 2022-01-13 09:50:00 41.97 kg/m2 [facility] oximetry 2022-01-13 09:50:00 96 % [facility] 2022-01-13 09:50:00 17 /min Comm on [facility] blood pressure 2022-01-13 09:50:00 138 mm[Hg] [facility] - systolic [facility] blood pressure 2022-01-13 09:50:00 72 mm[Hg] [facility] - diastolic [facility] height 2021-12-14 10:10:00 67 [in_i] [facility] weight 2021-12-14 10:10:00 268.5 [lb_av] Common [facility] temperature 2021-12-14 10:10:00 97.7 [degF] Common [facility] bmi 2021-12-14 10:10:00 42.05 kg/m2 [facility] oximetry 2021-12-14 10:10:00 96 % Common [facility] respiratory rate 2021-12-14 10:10:00 17 /min Comm on [facility] blood pressure 2021-12-14 10:10:00 134 mm[Hg] [facility] - systolic [facility] blood pressure 2021-12-14 10:10:00 79 mm[Hg] [facility] - diastolic [facility] height 2021-09-29 11:20:00 67 [in_i] Common [facility] weight 2021-09-29 11:20:00 265 [lb_av] Common [facility] bmi 2021-09-29 11:20:00 41.5 kg/m2 [facility] height 2021-09-14 13:20:00 67 [in_i] Common [facility] weight 2021-09-14 13:20:00 265 [lb_av] Common [facility] temperature 2021-09-14 13:20:00 97.4 [degF] Common [facility] bmi 2021-09-14 13:20:00 41.5 kg/m2 [facility] oximetry 2021-09-14 13:20:00 98 % Common [facility] respiratory rate 2021-09-14 13:20:00 22 /min Comm on [facility] blood pressure 2021-09-14 13:20:00 128 mm[Hg] [facility] - systolic [facility] blood pressure 2021-09-14 13:20:00 76 mm[Hg] [facility] - diastolic [facility] height 2021-08-16 14:40:00 67 [in_i] [facility] weight 2021-08-16 14:40:00 253.9 [lb_av] [facility] temperature 2021-08-16 14:40:00 98.1 [degF] [facility] bmi 2021-08-16 14:40:00 39.76 kg/m2 [facility] oximetry 2021-08-16 14:40:00 97 % [facility] respiratory rate 2021-08-16 14:40:00 17 /min Comm on [facility] blood pressure 2021-08-16 14:40:00 128 mm[Hg] [facility] systolic [facility] blood pressure 2021-08-16 14:40:00 76 mm[Hg] [facility] diastolic [facility] HEIGHT 2021-06-14 10:05:00 175.3 cm WEIGHT 2021-06-14 10:05:00 113.3 kg HEIGHT 2021-06-13 11:42:00 175.3 cm WEIGHT 2021-06-13 11:42:00 113.399 kg HEIGHT 2021-06-14 10:05:00 175.3 cm WEIGHT 2021-06-14 10:05:00 113.3 kg HEIGHT 2021-06-13 11:42:00 175.3 cm WEIGHT 2021-06-13 11:42:00 113.399 kg HEIGHT 2021-04-15 14:15:00 175.3 cm WEIGHT 2021-04-15 14:15:00 113.9 kg HEIGHT 2021-04-12 10:44:00 175.3 cm WEIGHT 2021-04-12 10:44:00 113.399 kg height 2021-04-12 11:00:00 67 [in_i] [facility] weight 2021-04-12 11:00:00 250.4 [lb_av] [facility] temperature 2021-04-12 11:00:00 96.9 [degF] [facility] bmi 2021-04-12 11:00:00 39.21 kg/m2 [facility] oximetry 2021-04-12 11:00:00 96 % [facility] respiratory rate 2021-04-12 11:00:00 18 /min [facility] blood pressure 2021-04-12 11:00:00 121 mm[Hg] [facility] - systolic [facility] blood pressure 2021-04-12 11:00:00 71 mm[Hg] [facility] - diastolic [facility] Systolic blood 2021-06-20 11:46:00 141 mm[Hg] [facility] Diastolic blood 2021-06-20 11:46:00 86 mm[Hg] [facility] Heart rate 2021-06-20 11:46:00 81 /min [facility] Body temperature 2021-06-20 11:46:00 36.56 Gabby [facility] Respiratory rate 2021-06-20 11:46:00 18 /min [facility] Oxygen saturation in 2021-06-20 11:46:00 97 /min [facility] Arterial blood by [facility] Pulse oximetry Body height 2021-06-14 10:05:00 175.3 cm [facility] Body weight 2021-06-14 10:05:00 113.3 kg [facility] BMI 2021-06-14 10:05:00 36.87 kg/m2 [facility] Procedures Procedure Date / Time Performed Performing Clinician Nathen dunbar POCT-GLUCOSE METER 2021-06-20 11:49:00 Rock Alfaro [facility] POCT-GLUCOSE METER 2021-06-20 07:30:00 Rock Alfaro [facility] CBC W/PLT COUNT & AUTO 2021-06-20 03:54:00 Queenie Evangelista Cathleen [facility] BASIC METABOLIC PANEL 2021-06-20 03:54:00 Queenie Evangelista [facility] () [facility] MAGNESIUM 2021-06-20 03:54:00 Koci, [facility] PHOSPHORUS 2021-06-20 03:54:00 Tonja [facility] CBC W/PLT COUNT & AUTO 2021-06-20 03:54:00 Tonja [facility] POCT-GLUCOSE METER 2021-06-19 21:03:00 Vianca [facility] POCT-GLUCOSE METER 2021-06-19 16:47:00 Vianca [facility] POCT-GLUCOSE METER 2021-06-19 12:29:00 Vianca [facility] POCT-GLUCOSE METER 2021-06-19 10:01:00 Vianca [facility] CBC W/PLT COUNT & AUTO 2021-06-19 03:23:00 Tonja [facility] BASIC METABOLIC PANEL 2021-06-19 03:23:00 Tonja [facility] () [facility] MAGNESIUM 2021-06-19 03:23:00 Tonja [facility] PHOSPHORUS 2021-06-19 03:23:00 Tonja [facility] CBC W/PLT COUNT & AUTO 2021-06-19 03:23:00 Tonja [facility] POCT-GLUCOSE METER 2021-06-18 21:12:00 Vianca [facility] POCT-GLUCOSE METER 2021-06-18 16:16:00 Vianca [facility] POCT-GLUCOSE METER 2021-06-18 11:40:00 Vianca [facility] POCT-GLUCOSE METER 2021-06-18 07:18:00 Vianca [facility] CBC W/PLT COUNT & AUTO 2021-06-18 03:59:[facility] 2021-06-18 03:59:00 Tonja, [address] MAGNESIUM 2021-06-18 03:59:00 Tonja [facility] PHOSPHORUS 2021-06-18 03:59:00 Tonja [facility] CBC W/PLT COUNT & AUTO 2021-06-18 03:59:00 Tonja [facility] POCT-GLUCOSE METER 2021-06-17 21:05:00 Vianca [facility] POCT-GLUCOSE METER 2021-06-17 16:28:00 Vianca [facility] POCT-GLUCOSE METER 2021-06-17 11:22:00 Vianca [facility] POCT-GLUCOSE METER 2021-06-17 06:25:00 Vianca [facility] CBC W/PLT COUNT & AUTO 2021-06-17 05:05:00 Ismasandie [facility] BASIC METABOLIC PANEL 2021-06-17 05:05:[address] MAGNESIUM 2021-06-17 05:05:00 Tonja [facility] PHOSPHORUS 2021-06-17 05:05:00 Tonja [facility] CBC W/PLT COUNT & AUTO 2021-06-17 05:05:00 Ismasandie [facility] VANCOMYCIN LEVEL, TROUGH 2021-06-16 23:52:00 Anthony Drew [facility] POCT-GLUCOSE METER 2021-06-16 22:50:00 Vianca [facility] POCT-GLUCOSE METER 2021-06-16 18:13:00 Vianca [facility] POCT-GLUCOSE METER 2021-06-16 11:16:00 Vianca [facility] POCT-GLUCOSE METER 2021-06-16 06:05:00 Vianca [facility] CBC W/PLT COUNT & AUTO 2021-06-16 05:02:00 Tonja [facility] BASIC METABOLIC PANEL 2021-06-16 05:02:00 Tonja [facility] () [facility] MAGNESIUM 2021-06-16 05:02:00 [facility] PHOSPHORUS 2021-06-16 05:02:00 Tonja [facility] CBC W/PLT COUNT & AUTO 2021-06-16 05:02:00 Tonja [facility] POCT-GLUCOSE METER 2021-06-16 00:14:00 Vianca [facility] POCT-GLUCOSE METER 2021-06-15 18:16:00 Vianca [facility] POCT-GLUCOSE METER 2021-06-15 05:25:00 Rock Alfaro [facility] CBC W/PLT COUNT & AUTO 2021-06-15 05:04:00 [facility] BASIC METABOLIC PANEL 2021-06-15 05:04:00 Tonja [facility] () [facility] MAGNESIUM 2021-06-15 05:04:00 Tonja [facility] PHOSPHORUS 2021-06-15 [facility]:04[facility] 2021-06-15 05:04[facility]00 [facility]LL[facility] 2021-06-15 05:04:00 [facility]) [facility] XR ABDOMEN / KUB 1 VIEW 2021-06-14 21:42:00 [facility] POCT-GLUCOSE METER 2021-06-14 21:39:00 Vianca [facility] TISSUE EXAM 2021-06-14 18:14:00 Rock Alfaro [facility] POCT-GLUCOSE METER 2021-06-14 17:35:00 Rock Alfaro [facility] LAPAROTOMY, EXPLORATORY 2021-06-14 14:07:00 Rock Alfaro o [facility] RESECTION, SMALL 2021-06-14 14:07:00 Rock Alfaro [facility] INTESTINE [facility] HERNIORRHAPHY, VENTRAL 2021-06-14 14:07:00 Rock Alfaro [facility] ABORH, MANUAL 2021-06-14 11:16:00 Payton Zeng [facility] TYPE AND SCREEN, 2021-06-14 11:03:00 Queenie Evangelista [facility] AUTOMATED [facility] HEMOGLOBIN 2021-06-14 11:03:[address] [facility] ELECTROLYTE PANEL 2021-06-14 11:03:[address] [facility] BUN AND CREATININE 2021-06-14 11:03:00 Jose E [facility] W/RATIO [facility] GLUCOSE 2021-06-14 11:03:[address] [facility] REPORT OF PROCEDURE - 2021-04-15 16:34:59 [facility] ENDOSCOPY [facility] TISSUE EXAM 2021-04-15 16:04:00 [facility] COLON[facility], WITH 2021-04-15 15:51:00 [facility] POCT-GLUCOSE METER 2021-04-15 14:19:00 [facility] SARS-COV2/RT-PCR ([facility] & 2021-04-13 12:38:00 Bishop-Faraz Aragon [facility] REF LABS) [facility] Plan of Care Planned Activity Planned Date Details Comments Source Future Scheduled 2031-04-15 [facility] for [facility] 00[facility]00:00 neoplasm of colon Medical Ce nter (procedure) [code = 105795505] Future Scheduled 2031-04-15 Screening for malignant [facility] Test 00:00:00 neoplasm of colon Medical Ce nter (procedure) [code = 389472749] Future Scheduled 2031-04-15 Screening for malignant [facility] Test 00:00:00 neoplasm of colon Medical Ce nter (procedure) [code = 212118873] Future Scheduled 2031-04-15 Screening for malignant [facility] Test 00:00:00 neoplasm of colon Medical Ce nter (procedure) [code = 039286486] Future Scheduled 2023-03-16 Influenza Vaccine (#1) [facility] 00:00:00 [code = Influenza Medical Ce nter Vaccine (#1)] Future Scheduled 2022-07-[address] [facility] 00:00:00 (12+) [code = Medical Center DEPRESSION SCREENING (12+)] Future Scheduled 2022-06-[address] [facility] Test 00:00:00 Counseling and Medical Cente r Screening (12+) [code = Tobacco Cessation Counseling and Screening (12+)] Future Scheduled 2022-03-16 INFLUENZA VACCINE (#1) [facility] 00:00:00 [code = INFLUENZA Medical Ce nter VACCINE (#1)] Future Scheduled 2021-07-[address] [facility] 00:00:00 WELLNESS (YEAR 2 or Medical Center FIRST YEAR if no IPPE) [code = MEDICARE ANNUAL WELLNESS (YEAR 2 or FIRST YEAR if no IPPE)] Future Scheduled 2021-07-[address] [facility] 00:00:00 WELLNESS (YEAR 2 or Medical Center FIRST YEAR if no IPPE) [code = MEDICARE ANNUAL WELLNESS (YEAR 2 or FIRST YEAR if no IPPE)] Future Scheduled 2021-07-[address] [facility] 00:00:00 (12+) [code = Medical Center DEPRESSION SCREENING (12+)] Future Scheduled 2021-04-04 COVID-19 VACCINE (3 - [facility] 00[facility]00:00 Booster for [facility] series) [code = COVID-19 VACCINE (3 - Booster for Moderna series)] Future Scheduled 2020-12-28 COVID-19 VACCINE (3 - [facility] 00:00:00 [facility]oster for [facility] series) [code = COVID-19 VACCINE (3 - Booster for Moderna series)] Future Scheduled 2014 SHINGLES VACCINES ([address] [facility] 00:00:00 2) [code = SHINGLES Medical Center VACCINES (1 of 2)] Future Scheduled 2014 SHINGLES VACCINES ([address] [facility] 00:00:00 2) [code = SHINGLES Medical Center VACCINES (1 of 2)] Future Scheduled 1999-12-24 Lipid panel (procedure) [facility] 00:00:00 [code = 64398015] Medical Ce nter Future Scheduled 1999-12-24 Lipid panel (procedure) [facility] 00:00:00 [code = 49640391] Medical Ce nter Future Scheduled 1983-12-24 DTAP/TDAP/TD VACCINES [facility] 00:00:00 (1 - Tdap) [code = Medical C enter DTAP/TDAP/TD VACCINES (1 - Tdap)] Future Scheduled 1983-12-24 DTAP/TDAP/TD VACCINES [facility] 00:00:00 (1 - Tdap) [code = Medical C enter DTAP/TDAP/TD VACCINES (1 - Tdap)] Future Scheduled 1982 HEPATITIS C SCRE[facility]ING [facility] 00:00:00 [code = HEPATITIS C Medical Center SCREENING] Future Scheduled 1982 HEPATITIS C [facility]ING [facility] 00:00:00 [code = HEPATITIS C Medical Center SCREENING] Future Scheduled 1964 CT Colonography (combo) [facility] 00:00:00 [code = CT Colonography [facility] (combo)] Future Scheduled 1964 Screening for malignant [facility] 00:00:00 neoplasm of colon Medical Ce nter (procedure) [code = 954397426] Future Scheduled 1964 Screening for malignant [facility] 00:00:00 neoplasm of colon Medical Ce nter (procedure) [code = 624379593] Future Scheduled 1964 Sigmoidoscopy [code = [facility]00 Sigmoidoscopy] Medical Cente r Future Scheduled 1964 Sigmoidoscopy [code = [facility] 00:[facility]:00 Sigmoidoscopy] Medical Cente r Future Scheduled 1964 CT Colonography (combo) [facility] 00:00:00 [code = CT Colonography [facility] (combo)] Future Scheduled 1964 Screening for malignant [facility] Test 00:00:00 neoplasm of colon Medical Ce nter (procedure) [code = 978394451] Future Scheduled 1964 Screening for malignant [facility] Test 00:00:00 neoplasm of colon Medical Ce nter (procedure) [code = 077053845] Encounters Start End Encounter Admission Attending Care Care Encounter Source Date/Time Date/Time Type Type Clinicians Facility Department ID 2022-07-14 Outpatient Rai, STLMLC STLMLC [id number] Common 15:21:00 Bel [facility] 2022-06-22 Outpatient Rai, STLMLC STLMLC [id number] Common 11:32:00 Bel [facility] 2022-06-15 Outpatient Rai, STLMLC STLMLC [id number] Common 11:16:00 Bel [facility] 2022-05-11 Outpatient Rai, STLMLC STLMLC [id number] Common 08:50:00 Bel [facility] 2022-03-28 Outpatient Rai, STLMLC STLMLC [id number] Common 12:48:00 Bel [facility] 2021-08-17 Outpatient Rai, STLMLC STLMLC [id number] Common 12:44:00 Bel [facility] 2021-08-10 Outpatient Rai, STLMLC STLMLC [id number] Common 14:15:45 Bel [id number] [facility] 2021-08-10 Outpatient Rai, STLMLC STLMLC [id number] Common 14:08:22 Bel 8[address]20 [facility] 2021-08-10 Outpatient Rai, STLMLC STLMLC [id number] Common 14:01:17 Bel 8[address]87 [facility] 2021-08-10 Outpatient Rai, STLMLC STLMLC [id number] Common 13:54:13 Bel [address] [facility] 2021-08-10 Outpatient Rai, STLMLC STLC [id number] Common 13:53:56 Bel 80781 [facility] 2021-08-10 Outpatient Rai, STLMLC STLC [id number] Common 13:48:07 Bel 195[address] [facility] 2021-08-10 Outpatient Rai, STLMLC STLC [id number] Common 13:47:10 Bel 57677 [facility] 2021-08-10 Outpatient Rai, STLMLC STLC [id number] Common 13:45:16 Bel 312[address] [facility] 2021-08-10 Outpatient Rai, STLMLC STLC Common 13:44:17 Bel [id number] [facility] 2021-08-10 Outpatient Rai, STLMLC STLC Common 13:34:14 Bel 24056 [facility] 2021-08-10 Outpatient Rai, STLMLC STLC Common 12:26:47 Bel 37370 [facility] 2021-08-10 Outpatient Rai, STLMLC STLC Common 11:45:27 Bel 04609 [facility] 2021-08-10 Outpatient Rai, STLMLC STLC [id number] Common 11:17:40 Bel 17067 [facility] 2021-08-10 Outpatient Rai, STLMLC STLC Common 11:17:32 Bel 45481 [facility] 2021-08-10 Outpatient Rai, STLMLC STLC [id number] Common 11:17:26 Bel 18150 [facility] 2021-04-24 Outpatient [facility] Surgery [id number] SLE 11:15:13 L, KELLI 2022-07-19 2022-07-19 (TEL) STLMLC STLMLC [id number] Co mmon 00:00:00 00:00:00 [facility] 2022-06-22 2022-06-22 (TEL) STLMLC STLMLC [id number] Co mmon 00:00:00 00:00:00 [facility] 2022-06-14 2022-06-14 (TEL) STLMLC STLMLC [id number] Co mmon 00:00:00 00:00:00 [facility] 2022-05-15 2022-05-15 OFFICE STLMLC STLMLC [id number] Co mmon 00:00:00 00:00:00 VISIT [facility] [address] 2022-04-12 2022-04-12 OFFICE STLMLC STLMLC [id number] Co mmon 00:00:00 00:00:00 VISIT [facility] [address] 2022-04-05 2022-04-05 (TEL) STLMLC STLMLC [id number] Co mmon 00:00:00 00:00:00 [facility] 2022-03-29 2022-03-29 (TEL) STLMLC STLMLC [id number] Co mmon 00:00:00 00:00:00 [facility] 2022-03-13 2022-03-13 OFFICE STLMLC STLMLC [id number] Co mmon 00:00:00 00:00:00 VISIT [facility] [address] 2022-03-06 2022-03-06 (TEL) STLMLC STLMLC [id number] Co mmon 00:00:00 00:00:00 [facility] 2022-02-21 2022-02-21 (TEL) STLMLC STLMLC [id number] Co mmon 00:00:00 00:00:00 [facility] 2022-02-10 2022-02-10 OFFICE STLMLC STLMLC [id number] Co mmon 00:00:00 00:00:00 VISIT [facility] [address] 2022-01-13 2022-01-13 OFFICE STLMLC STLMLC [id number] Co mmon 00:00:00 00:00:00 [facility]IT [facility] LEVEL [facility] 2022-01-13 2022-01-13 (TEL) STLMLC STLMLC [id number] Co mmon 00:00:00 00:00:00 [facility] 2021-12-14 2021-12-14 (WELLNESS) STLMLC STLMLC [id number] Common 00:00:00 00:00:00 Wellness Spiri t Visit - [facility] 2021-09-29 2021-09-29 OFFICE STLMLC STLMLC [id number] Co mmon 00:00:00 00:00:00 VISIT EST Spir it PT LEVEL 3 - [facility] 2021-09-14 2021-09-14 OFFICE STLMLC STLMLC [id number] Co mmon 00:00:00 00:00:00 [facility]ISIT [facility] LEVEL 4 [facility] 2021-09-12 2021-09-12 (TEL) STLMLC STLMLC [id number] Co mmon 00:00:00 00:00:00 [facility] 2021-09-09 2021-09-09 (TEL) STLMLC STLMLC [id number] Co mmon 00:00:00 00:00:00 [facility] 2021-08-16 2021-08-16 OFFICE STLMLC STLMLC [id number] Co mmon 00:00:00 00:00:00 [facility]IT [facility] LEVEL 4 [facility] 2021-08-15 2021-08-15 (TEL) STLMLC STLMLC [id number] Co mmon 00:00:00 00:00:00 [facility] 2021-06-14 2021-06-20 Inpatient NEDRA ALFARO [facility] Surgery [id number] [facility] 09:25:00 14:19:00 [facility] 2021-06-14 2021-06-20 Hospital NEDRA Alfaro [facility] [id number] 09:25:00 14:19:00 [facility] 2021-06-14 2021-06-14 Anesthesia Enmanuel Lopez [facility] [id number] 14:22:00 21:25:00 Event Zev Earl [facility] 2021-06-14 2021-06-14 Surgery Vianca [facility] [id number] 13:35:00 18:10:00 [facility] 2021-06-14 2021-06-14 Travel [facility] [id number] [facility] 00:00:00 00:00:00 [facility] 2021-06-13 2021-06-13 Outpatient EL SLEH SLEH [id number] [facility] 12:03:32 23:59:00 2021-06-13 2021-06-13 [facility] [id number] 09:20:00 23:59:00 Encounter [facility] 2021-06-13 2021-06-13 Travel [facility] [id number] [facility] 00:00:00 00:00:00 [facility] 2021-06-10 2021-06-10 [facility] [id number] 23:59:00 23:59:00 Encounter [facility] 2021-06-10 2021-06-10 Outpatient SLEH SLEH [id number] [facility]H 00:00:00 23:59:00 2021-05-12 2021-05-12 (TEL) [facility] [id number] Co mmon 00:00:00 00:00:00 [facility] 2021-04-28 2021-04-28 Outpatient EL SLEH SLEH [id number] [facility] 00:00:00 00:00:00 2021-04-15 2021-04-15 [facility] [id number] 13:57:00 18:29:00 Encounter Kelli hickey [facility] 2021-04-15 2021-04-15 Surgery [facility] [id number] 16:00:00 17:00:00 Kelli hickey [facility] 2021-04-15 2021-04-[address] [facility] [id number] [facility] 15:56:00 16:31:00 Event Chris Pavon [facility] 2021-04-15 2021-04-15 Travel [facility] [id number] [facility] 00:00:00 00:00:00 [facility] 2021-04-13 2021-04-13 [facility] [id number] 12:32:37 23:59:00 Encounter Kelli hickey [facility] 2021-04-13 2021-04-13 Outpatient EL SLE SLE [id number] SLEH 00:00:00 00:00:00 2021-04-12 2021-04-12 [facility] [id number] 10:25:00 23:59:00 Encounter [facility] 2021-04-12 2021-04-12 Outpatient EL SLE SLEH [id number] SLEH 00:00:00 00:00:00 2021-04-12 2021-04-12 OFFICE STLMLC STLMLC [id number] Co mmon 00:00:00 00:00:00 VISIT [facility] - [facility] LEVEL 4 [facility] 2021-04-12 2021-04-12 Travel [facility] [id number] [facility] 00:00:00 00:00:00 [facility] 2021-03-15 2021-03-15 Outpatient STLMLC STLMLC [id number] Common 00:00:00 00:00:00 [facility] 2021-02-21 2021-02-21 Outpatient STLMLC STLMLC [id number] Common 00:00:00 00:00:00 [facility] 2021-02-16 2021-02-16 Outpatient STLMLC STLMLC [id number] Common 00:00:00 00:00:00 [facility] 2021-02-15 2021-02-15 Outpatient STLMLC STLMLC [id number] Common 00:00:00 00:00:00 [facility] 2021-02-09 2021-02-09 Outpatient STLMLC STLMLC [id number] Common 00:00:00 00:00:00 [facility] 2021-01-20 2021-01-20 Outpatient EL SLEH SLEH [id number] SLEH 00:00:00 00:00:00 2020-12-14 2020-12-14 Outpatient STLMLC STLMLC [id number] Common 00:00:00 00:00:00 [facility] 2020-11-16 2020-11-16 Outpatient STLMLC STLMLC [id number] Common 00:00:00 00:00:00 [facility] 2020-08-17 2020-08-17 Outpatient STLMLC STLMLC [id number] Common 00:00:00 00:00:00 [facility] 2020-08-17 2020-08-17 Outpatient STLMLC STLMLC [id number] Common 00:00:00 00:00:00 [facility] 2020-07-07 2020-07-07 Outpatient STLMLC STLMLC [id number] Common 00:00:00 00:00:00 [facility] 2020-07-05 2020-07-05 Outpatient STLMLC STLMLC [id number] Common 00:00:00 00:00:00 [facility] 2020-06-25 2020-06-25 Outpatient STLMLC STLMLC [id number] Common 00:00:00 00:00:00 [facility] 2020-05-17 2020-05-17 Outpatient STLMLC STLMLC [id number] Common 00:00:00 00:00:00 [facility] 2020-02-13 2020-02-13 Outpatient [facility] [id number] Common 09:45:00 09:45:00 t [facility] Spir it Zazum [facility] 2020-01-12 2020-01-12 Outpatient [facility] [id number] Common 10:13:00 10:13:[address] [facility] 2019-10-27 2019-10-27 Outpatient [facility] [id number] Common 11:00:00 11:00:[address] [facility] 2019-10-23 2019-10-23 Outpatient [facility] [id number] Common 16:50:00 16:50:[address] [facility] 2018-02-01 2018-02-01 Outpatient [facility] [id number] Common 09:00:00 09:00:[address] [facility] [address] [facility] Results Test Description Test Time Test Comments Results Result Comments Source HEMOGLOBIN A1C 2022-05-15 00:00:00 Test Item Value Reference Range Interpretation Comme nts A1C (test code = 4548-4) 9.1 HEMOGLOBIN [id number] 00:00:00 Test Item Value Reference Range Interpretation Comments A1C (test code = 4548-4) 9.9 HEMOGLOBIN [id number] 00:00:00 Test Item Value Reference Range Interpretation Comments A1C (test code = 4548-4) 9.9 HEMOGLOBIN [id number] 00:00:00 Test Item Value Reference Range Interpretation Comments A1C (test code = 4548-4) 10.6 HEMOGLOBIN [id number] 00:00:00 Test Item Value Reference Range Interpretation Comments A1C (test code = 4548-4) 10.2 HEMOGLOBIN [id number] 00:00:00 Test Item Value Reference Range Interpretation Comments A1C (test code = 4548-4) 6.8 Tissue [id number] 10:59:33 Test Item Value Reference Range Interpretation Comments Case Report (test code Surgical Pathology = 104) Report Case: [id number] Authorizing Provider: Rock Alfaro MD Collected: 06/14/2021 06:14 PM Ordering Location: [facility] PERIOPERATIVE Received: 06/15/2021 09:56 AM SERVICES Pathologist: Eldon Sneed MD Specimen: Soft Tissue, Other, 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 DIAGNOSIS (test code = x6pcsPUkQEVzd5lwNYElsLY 3220) uZzEwMzNcZnRuYmpcdWMxIH tccnRmMVxlcGljOTYwMVxhb bOwEXXshBOfL4GnlixkUVgg MO3fLJ3csFurxKTlbBNyCFL bOkKxy3bvp715mJPsf1hoKD TGpsndiIn6bJmwW70ez7Y0V hqqS64hxSBeOSL3BIVcZQPb mZKwMXMlXRU2GIXgzJDlX9x bEGVuOX0yqqxwOHxbLKegAB WfuOJ2SFNvdPHkZ3MjZFGmT CofJBSzkmr9AfDnVl2sgEBr eTcyMFxwYXJkXHBsYWluXGZ jPuPjCYYYWLQKEOkLKT8XQ3 lRPiNLWnEDOL9SU8VHQtDQQ kQgRklTVFVMQSwgUkVTRUNU KJ9CGbxnCQIvAG7BPJVOX0C WKA2IY4LIFVJNL9DRJJJfZ0 lUSCBTVUJFUElUSEVMSUFMI YTISqJLV1xOUithGCLcVKkL N4OAQX4ZWYNvFX2KZ6STWJ4 EJLDlD7sMAPTMAQQYQOkOJN VELlxwYXIgTkVHQVRJVkUgR j2ZVFNOO5KWOCOIKWRBMxKA CcWIN7rGLTMJWBPMWP4PDAP uXHBhciBTVVJHSUNBTCBNQV DENY2GMNTOYJTPMD8gzRCwa YquudLbFAzns9VeUChqFJUm WL5ttRopQGDkFJ5vQJCjP0v xaF6kgvq5LnWpKEZhMiM1HB UclkB8Jpc6OYYmXZfic7zed 2WjOEOhMKe3wRwuNlGcVUDz k1dtmoWdSjNuBCDbLTExPWE maJMrJ438u1yht1hrumHebM Q1ZYKyVFJ1DBkmbwDhkgU0C PonwAZuSmY5JHvmtmDjQQef xiHdxgVwYki5BWZrV666LMC 2kSlvq7beTGU6DXPgOOXeMh XyBe9lqINbR144LQSxLOKUK FDtfCu2LMPpvrWdytUslJQL k360N248y5qeTPExaaOzlPy Goduqp4mqB018PRRlmPPlll GhRuLtDVUxtMGxuJU3DVScX B0jlboyKVyiNIbfQYVjioW3 GVGugMShB5UlTEZpUD8smnq hGPJ1SRfrGGQvWYL1XsRzQB Gbi0Qgejv0CuMnrt0sqj66T CV7p9SleBwoXPK3YVS2QfOj Ns6ggBJtXPZmQA3iTrUdeMV pDOFlan19hIhzNLzwZYC1QD SimzXjy2Ijy3pfVcEygmEyH 6qlE0WpAEIvXFXpQEIuHaLs mhNnx5Laj2LkoZTfbSw7d9a xWXJjAYWohKlvu9odEFX5XV StrZCnX4ahkW4cRCDmOJ7ms dnrg5eoCRmqIEbdVNWsbFH8 kcZ5TKVcuNKxM7FyiQ2pUGZ nBVxeSWLqsjs8WhZvCd0yiY VyeTcyMFxzYmtwYWdlXHBnb mNvbnRccGduZGVjXHBsYWlu XHBsYWluXGYwXGZzMjRccWx cbGFuZzEwMzNcaGljaFxmMV veUtYnWXChGOsuL5djTpBbR gPhTir2DOCytLRtDRUtMua8 TQSonEIxEYZIwHxxbD1pTGE nvDvxuW7gdPP3DSXtovXmfE TZlN4wEYZLaL3qFdG8SZXqE aZ5SIn3OCcbaXQoqR8= CPT Code(s) (test code u3wfyCTvXEGmnQJ7PhGkRVM = 3357) dq8gtm3RgjSSjrKCvHDctdR IiprQydy55xTZ5nA03YV4hI VSiWyC3IBLvrpJ0Uwe2ZRCv HUAlkVZoK731g6jwi2sjrmD tnMF7hQfzELLouorjScD0SR nbKKKbwchcMOv4QTpjNZMea OL2FAAzwHVyD2FlISLtFO2a tgf3VLC8WGtpAEHnTgG0QXR opBHgODIpgRtoPQejv588OQ L0HjGrZNVqgjKveQawgZ2wK uFsFKC1FYOyZ7guYLG8 CLINICAL HISTORY (test d3vepQBhZLVllAB5VhPqFXT code = 3356) kt1ddr1ZjdXBdfPAnXXfifS TfyoDwfl10nMY1wO43MQ4yR JTeTjU0PTLjxiN8Qxm2GCWr NBZtbSRqT199c2gba4antzP vvAI7jBunNIVwdbtbNeS3OW aqUNQvdksqNMi0XNblIHBky SC0TIOdmYXcX8QnMIEtAG7k bak6SGQ6ESxgOPElGzH9TCQ unIYpHNIacJjwCQmzn772OH F4QpUvUVQemfOviHlnoN6aZ kQwMVZFpNKaG69bsEKwQW8k m7OcaC8rqRLrd3i4kGEzhJW 0qXecSMBjan4= SPECIMEN SOURCE (test f6wacXBdBOYenRX8AbXhYNT code = 3377) zz1sgw4EngYTfrLNdURtmdN FovtTnwj09fZK0tU77FQ6cE YXfQgO4MRLxbbN5Rxw0AMSz EFHbjBBoH974q1rxt8ehckP xiCE9xJmwFNAboezjFgC4RX wwAGAopyrfZAe0FMsdHVCsp HE3LQRsaDXiM0VtDCAjLP2t cmu5CZP7YIafHLHdKyZ8LVT xmIUpZEVnuCpwFRbjv809MF O5IwDsXUBtczVbrVkrdX1vV xZzGRKKoDDmD52ovNUdJC2z o9TaoC5mhGLtl4i9cDVtoVR 0vGyfOQKbuc1= GROSS DESCRIPTION q6qbqMDcPXMpuUMzMnQhXJC (test code = 3366) vPCTkj6yuACLpiGUtGuLcFy NcZnRuYmpcdWMxXGRlZmYwe 3qzr622wJIul7cjSPMbIxB2 cATcWYIpnQLzI744TEZhIOh dy9nac1ZxENVfhJQfb1S1LP AFkhtseXz9gQahF57bd6H8U wcfE3uzXDUeEEFfT1SzBU3d OFAcYgv7PIK1XXR5DOXgSMB fA7JfTT4lSPYqhYVqPGb5d9 gjjZaxAYQfZXF5g2rsUWgik oRsXS2pew8vyZh0i4ouusXc RTCfZFYpjUQFKXHqK7UjsOg jKp5onUm1oWimPsxdCBY9Ia v3BF5gta74jmo3hAlyAAHuc hjkHxZ8NAwmDIVaxptbAMx5 MFxtYXJnbDcyMFxtYXJncjc yMFxtYXJndDcyMFxtYXJnYj huKHswFWOzEGF0RIodr775W FK1PFhgd5wky9alaOSgQoi7 XSFtSeZdIprdDHumh4Rad3e zNJIzjs1eALN5rODqnVrst7 K6uEKjRDWqaFZxobVgOCRdT fA2EIqqAI5cdg44ZASyVOU9 ps7pvAZjuYodkaTjmWUzYZa eG8DoLIDio623RDHfL8ReQG Yxv3X1iqSyNsFeCIPcyQC4q vZ8LUNsBYy5fMEivlX2hlLl zKKpB3qldO66LeAdkMFuI0I zuG23XbYzxWCmJ5YciQ09Vh SjxXOeR2RulQ55NmVzxCCjU CZdrMHzZy1wnFFmuEEjk7Su fPLzBAjxV34ce808IFPdkzK mV1euaXMebncfuYGzabqaFA qxnpW2RAJsTNMyVVgiOLRfK GZzMjBcbGFuZzEwMzNcaGlj tRmwGXpaIdIgUNHuHHpfX1i cZjFcZnMyMCBBLiAgUmVjZW m0JLIuwT8fIy3vmFAmpR1dj BYjFInkJWH8hPQyRPAlLJGz AIBqQC44G0IwauAfLSvsZGJ LAOZuVCEyf08egIO9lLNfoI JnBR36yVEhZrOndaAiI45rp 5wadHKqa9AuNK2ggUfmq3Fe pMeyKQZvLYLsxF0si7qnLVM hiwRpiG3qs5WvfiHwrAOnFY Q8yDLxASWfgEhyiCquGIdon qluKAZcNEXfcEIzfAEyi1si sCW2tPGxUFO3rfyhY6YrRW2 comwmyaQuMQ1eIZ7xfV5fsE 3pVCDsmH9zGKDmoONwAUDdY CFIuLHlyWpouB2lPUXeXAPn sCMpmvE3ZYIkOHoaOLavwaa 6wALozuLfVf31CSAkKGqpFZ GsVB7thMFkAAT1hEObQRDpJ XAqZUMpE71fWDS1RFGrZAGm XCAocGDcx9PlcKhpa5RaHwX yMKmhFNQbfE7rSDQyZBCajQ JlcyAgMTEuNSBjbSBpbiBsZ F1atTkmMB7pAGVrQ96baQ5g UGbcmYG6QOCfGEcawPacyAL dqX5lGy06RQKtTQP0cDRmwV WpSGCjuERxv2LroEzqi3XcP dICpXXcb3Sgk1FqjNOnrJNf YWNlcyBhcmUgdGFuLXBpbms oILVmw452wW2qA5HwzsumIr UcZTUvYSxnJGYuJQG6v87kz 9foEBicsaQvkVWwi5HbyK7g WUYuZNLgaGStexPfVZ5ilJq zLF5hSAilQ5Y0GGWnJk63NJ GqDRRfs39okYbfBQJxBGdeS QGxo6JkKWD9rcpxQ0YxEC6o yjnganxbMM9yMQLnU94cBfQ kzPU2qDHsJ70kf38ka2QiK9 juIWgaxTIzC4zaXsDkMEgzR KpwGJGgEY49F95wERHpokN2 VS5pqBddgyZ1waG3TR9nLsL cy95uEWvlsFoaDs4qDVishH tuzm9uanjmES9tDEqpq7Mak 1IaNn3qLSwhYeGpSVTvrRZk qwccCa78XRsyCG12YSRkSDU tq7FlwEApTKZnNDKwdPYima 9tIHRoZSBzdXJnaWNhbCBtY NHvuZ9lSFFyGLSfSEPrEOEf z82ylGknKPHsOHS2q75ez7i lVFRplAMhUSFwMMA5RJaeYJ WrwLTpgoGulxYyl1BhnWkzX GlsZXVtIHJhbmdlcyAwLjEg xB7nNX0zMAErKdNRjJErv5Z znPX1uBgvv69ui3Csi5VdwJ uoVUXrrC8eXPowFGMlFVZnp F3gBAJDkITkjlXwUTicXTPn KW8oBYKdLNMkqWWgu4PnQg5 kKASlARMlvVW0dPBpbrKjO4 6fg94yKSJtWTDyyp9mcN2lQ ZIjzE7fdEtnKVdytVaisr6a bWFsIGZvbGRpbmcuICBObyB foMVolgF1JKSjTIZmg58vVI FyZSBpZGVudGlmaWVkLiAgU lEjsfZrGC78ILPjnrQjc9Lf xJwdpvMhUTFoDAN9Da1zlQO qZX0qdLXkXIDrVQRljzQVvJ CxGLunLKOhKPSyd512RKkmG ONujUZmGUQih42vwpDoUQfw gQhfo8v8dUMvgKBkH5kzUVD 5RF7qoGjgykByr0vyRPaqWH S7AVMbwHA1UHEtYZ0gQYUfw G5kxYFabkZyLCQlLEDgPFAb e7FdJs8dAPscFBmhxjDkaMx ofkIqIVAksGMnfymgRvR6KB RkVhYoxGsyAXRaxKJinv8wP HFsDXAfkI1jRDY5MJVicA8u nZUnO9huIhOrWViyKR0bfF4 clS9mBRIcVBVcy4GelMpoJW UvrJ5fjHQpiNWiAANmm1qiH KDqbE6jwBqxTEXbM4Nft18v bfivzvX9SWTrumVipYNcnoX zdGJ7fgOae7p2rSTqrFBpm2 HbRAynZrGuihXuJW0qUD7oK 4Swm0ixCN8lKHT9zplxFzCm HCTaNQigYYqoREV5CFO9WNL hnDVgf2eyzjifES65SLOtTR Nzt35xN2qrs3QneRCrj7vsW YJpUzCsC77lPaGkuOSgWLGq JZIzj2MhiWkqftFhLYKtoF8 jLEFiKSYcTRuhYCFql42vZF 7olVgsnjNslwGgDS0qQH5eP 5Dam6dyNI5hGPI8osxeArTh IpCzS82xpV1qK8TlUECxm9Q fOMruOL9eyS8jIRSeUuEtN2 4vKpYlxQFxTXDtNHVhz4Ffp SgfkeCbEPDexS4nQH0zJYHp IDBbaEMdoh3hJPIjuY2hHKO vLHBrJFJuc0TmFcKepdFlvx BhcmUgYXJiaXRyYXJpbHkgZ GVzaWduYXRlZCBhcyAxIGFu HDVjFBXbq7VcI8ZrhrHpjU9 cLMMzjRBjICQ2lJWgbvUhJZ yaLWAlIP8iWWBpLECgdLIqx 9MqBkEyAOEiWNWqKWKblr9e qC7dOGOjZRNgjb48lJj0JJ1 iRf3cMLqlU3XvcXWzcRLbnA 9ucyBhcmUgaWRlbnRpZmllZ ABfxPYnUGOwkbqeJHVyB8Fz uQtwvhAuf5CuVklaRRKgJZZ 7BCslUSElNW65R44oDVTyAI 8kzbgjYewyVLNrgcF2oZpfd uuwPlOyjgGwtZ7wmeAtYfCe r8jvwS5zPWYminUNTgvwHYt zgV8xNK4jp4ZprZVzMKYncz ZPMfXgtGW8wUGkqQFce0TmG ZDfB50tWgDdbGTfvXDhjTUm iSAeYOXqyQ9oUINcQQEcpQZ weo8hSGFpWDN6b49qd2xzET OxfHVblCSeBAS4BqVFmsCkw X5gx2ZwmsTomQAcTBBimmWK LSljI06eu14yQC6xzA40Y9z hwS66W1pxpGCwNJB6HfUNd1 sybvEyyLQnf9StD3SrpOyqM NDywqLxFoJttIV0eQQdqXVm V9czEPZaDKAwqYRdcx1aYQC oQHZ2b40vh1rjAMXlzLDweD PsUNK0IlIVm9ukjbOujLJol 9PrTWRoA38rMpCnqDOvYZMh wB8qlTRjHGB6DmKIQpXuqYo fVLxrw7SwuAZlo8beYJVjRe ZzpNRajMAiQSB9VmPgEFHtk 3RpYyBhcmVhIDFccGFyIEEx WMzffnEejj62hWAtWVZbCZN pNBLwnjLJZCY2LHNdeS2nKK 3ejudaimvdjMYzA0sdDPaaa 6NdHTChiYAwKCFyxhCGAFR4 POlhNQGkKP3xaakgfcXwJI0 hcmdpbiBpbmtlZCBibGFjay JopGYjASVvcfQGaQ7ouTFeU EdlbmVuZSBccGFyIFBBIFN0 dWRlbnQgXHBhclxwYXJ9 MICROSCOPIC z1odpIEsUTIjeKY8ZuDaKFD DESCRIPTION (test code hg2zlz2QpuVLcdOMgWMhfwU = 3371) DftoQerx12aYR3zY84UA6rB TDpLbB3VPPydgL5Iiq7BNDy PUIokDVqE823u9etr6izpwB cxSI7tOjnSUWactdpRzF1VE cbSFKkwzmkNLh1ZEcgMZKsf JW7ALOoxKEnB0VdTEJiBD0o vbu2QZB3VEnaVQPfGrK2PVQ jnDXcKPMejVcoASgxz140XU B2WsWmKYOolnMweEwdtJ9jK xNeVWAfBFXqs8SpNONaqKOb fQ== Gross assessment was [facility] performed at ([facility], code = 2777) Department of Pathology, [address] [place] [address], Technical component [facility] was performed at ([facility], code = 2778) Department of Pathology, [address] [place] [address] 89[address], Professional component [facility] was performed at ([facility], code = 2779) Department of Pathology, [address] [place] [address], [facility] Center[facility] [id number] 10:59:33Surgical Pathology Report Case: [id number] Authorizing Provider: Rock Alfaro MD Collected:06/14/2021 06:14 PM Ordering Location: [facility] PERIOPERATIVE Received: 06/15/2021 09:56 AM SERVICES Pathologist: Eldon Sneed MD Specimen: Soft Tissue, Other, 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 Signing Pathologist Direct Phone Line: [phone] signed by Eldon Sneed MD on 06/22/2021 at 10:59 [id number] anastomosis with fistulaIleocolic anastomosis with fistulaA. Received [...] mucosa for the ileum and colon are omer-pin k, smooth, with normal folding. No discrete lesions are identified. Flight Engineer sections are submitted. Also in the container [...] omer-pink to omer-white. No discrete lesions are identifiedSection code:A1: Ileum mucosa remarkable for thinning and loss of foldingA2: Ileum EndopouchA3 ileummucosa, 3 cm from surgical margin, 3.5 cm from anastomosis siteA4: Anastomosis siteA5: colon endpouch pouchA6: Colon mucosa centimeters from the margin 1.5 cm from anastomosis siteA7: Colon mucosa, 6 cm from marginA8: Abdominal wall skin defect A9: necrotic area 1A10: necrotic area 2A11: Colon margin,margin inked blue A12: Ileum margin , margin inked black Martha WHITE Student performedBaResnick Neuropsych[facility] at [facility], Department of Pathology, [address] [place], [place] [address], [facility] [place] [place], [address] [place] [address], [facility] [place] [place] of [place]ology, [address] [place] [address], QVV-Glucose zexil5435-06-38 12:01:05 Test Item Value Reference Range Interpretation Comments POC-Glucose Meter (test 192 mg/dL 70-110 H : TE STED AT [facility] code = 1538) [address] [place] [address], [facility] 30: File Drawer Finisher/Techni adeola ID = [id number] for Luli Snowden Lab Interpretation (test Abnormal code = 72554-9) [facility] CenterPOCT[facility]GLUCOSE [id number] 12:01:05 Test Item Value Reference Range Interpretation Comments POC-GLUCOSE METER 192 mg/dL 70-110 H : TESTED A T [facility] 6720 (BEAKER) (test code = PATRICK Brown [place], 1538) [address]: File Drawer Finisher/Techni adeola ID = [id number] for Luli Hinson POCT-GLUCOSE [id number] 07:41:10 Test Item Value Reference Range Interpretation Comments POC-GLUCOSE METER 146 mg/dL 70-110 H : TESTED A T [facility] 6720 (BEAKER) (test code = PATRICK Brown [facility], 1538) [address]: File Drawer Finisher/Techni adeola ID = [id number] for Yaya Hightower Xhomtzhge0940-19-54 05:06:24 Test Item Value Reference Range Interpretation Comments Magnesium (test code = 1.7 mg/dL 1.6-2.6 26057-1) GUSTAVO (test code = GUSTAVO) File Drawer Finisher ID - LEAH M Lab Interpretation (test Normal code = 93127-2) [facility] CenterPhosphorus2021-12-06 05:06:24 Test Item Value Reference Range Interpretation Comments Phosphorus (test code = 3.7 mg/dL 2.3-4.7 2777-1) GUSTAVO (test code = GUSTAVO) File Drawer Finisher ID - LEAH M Lab Interpretation (test Normal code = 38691-0) [facility] CenterMAGNESIUM2021-12-06 05:06:24 Test Item Value Reference Range Interpretation Comments MAGNESIUM (BEAKER) (test code = 1.7 mg/dL 1.6-2.6 627) File Drawer Finisher ID - LEAH [id number] 05:06:24 Test Item Value Reference Range Interpretation Comments PHOSPHORUS (BEAKER) (test code = 3.7 mg/dL 2.3-4.7 604) File Drawer Finisher ID - LEAH MBasic Metabolic [id number] 05:06:23 Test Item Value Reference Range Interpretation Comments Sodium (test code = 142 meq/L 450-836 7779-2) Potassium (test code = 3.3 meq/L 3.5-5.1 L 2823-3) Chloride (test code = 109 meq/L 98-107 H 2075-0) CO2 (test code = 24 meq/L 22-29 8-9) BUN (test code = 8 mg/dL 7-21 3094-0) Creatinine (test code 0.97 mg/dL 0.57-1.25 = 2160-0) Glucose (test code = 155 mg/dL 70-105 H 2345-7) Calcium (test code = 8.8 mg/dL 8.4-10.2 13448-6) EGFR (test code = 80 mL/min/1.73 [place] [address]-5) NOT ACCURATE CREATININE CLEARANCE IN PREDICTING GLOMERULAR FILTRATION RATE . ESTIMATED GFR I S NOT APPLICABLE FOR DIALYSIS PATIENTS. GUSTAVO (test code = GUSTAVO) File Drawer Finisher ID - LEAH Robert Lab Interpretation Abnormal (test code = 61658-7) [facility] METABOLIC [id number] 05:06:23 Test Item Value Reference Range Interpretation [...] S NOT APPLICABLE FOR DIALYSIS PATIEN TS. File Drawer Finisher ID - LEAH MCBC with platelet count + automated rufb5010-01-68 04:40:06 Test Item Value Reference Range Interpretation Comments WBC (test code = 6690-2) 7.3 See_Comment [A utomated message] The system Blue Box generated this result transmitted ref erence range: 3.5 - 10 .5 K/L. The refe rence range was not u sed to interpret this result as normal/abnor mal. RBC (test code = 789-8) 3.76 See_Comment L [Au tomated message] The system Blue Box generated this result transmitted ref erence range: 4.63 - 6 .08 M/L. The refe rence range was not u sed to interpret this result as normal/abnor mal. MCHC (test code = 786-4) 31.9 See_Comment L [A utomated message] The system Blue Box generated this result transmitted ref erence range: [...] See_Comment [Aut omated message] 777-3) The system Blue Box generated this result transmitted ref erence range: 150 - 45 0 K/CU MM. The referen ce range was not u sed to interpret this result as normal/abnor mal. MPV (test code = 10.5 fL 9.4-12.4 52948-6) nRBC (test code = 413) 0 See_Comment [Aut omated message] The system Blue Box generated this result transmitted ref erence range: [...] See_Comment [Aut omated message] 670) The system Blue Box generated this result transmitted ref erence range: 1.78 - 5 .38 K/L. The refe rence range was not u sed to interpret this result as normal/abnor mal. # Lymphs (test code = 1.51 See_Comment [Auto mated message] 414) The system Blue Box generated this result transmitted ref erence range: 1.32 - 3 .57 K/L. The refe rence range was not u sed to interpret this result as normal/abnor mal. # Monos (test code = 0.37 See_Comment [Autom ated message] 415) The system Blue Box generated this result transmitted ref erence range: 0.30 - 0 .82 K/L. The refe rence range was not u sed to interpret this result as normal/abnor mal. # Eos (test code = 416) 0.26 See_Comment [Au tomated message] The system Blue Box generated this result transmitted ref erence range: 0.04 - 0 .54 K/L. The refe rence range was not u sed to interpret this result as normal/abnor mal. # Baso (test code = 417) 0.01 See_Comment [A utomated message] The system Blue Box generated this result transmitted ref erence range: 0.01 - 0 .08 K/L. The refe rence range was not u sed to interpret this result as normal/abnor mal. Immature 0 % 0-1 Granulocytes-Relative (test code = 2801) Lab Interpretation (test Abnormal code = 95948-2) [facility] W/PLT COUNT & AUTO [id number] 04:40:06 Test Item Value Reference Range Interpretation [...] PERCENT (BEAKER) (test code = 2801) POCT-GLUCOSE [id number] 21:15:05 Test Item Value Reference Range Interpretation Comments POC-GLUCOSE METER 168 mg/dL 70-110 H : TESTED A T [facility] 6720 (BEAKER) (test code = [facility], 153) [address]: File Drawer Finisher/Techni adeola ID = [id number] for WI VERA, SAVITA POCT-GLUCOSE [id number] 16:58:14 Test Item Value Reference Range Interpretation Comments POC-GLUCOSE METER 121 mg/dL 70-110 H : TESTED A T [facility] 6720 (BEAKER) (test code = [facility], 153) [address]: File Drawer Finisher/Techni adeola ID = [id number] for RA MOS, KRISTI POCT-GLUCOSE [id number] 12:40:25 Test Item Value Reference Range Interpretation Comments POC-GLUCOSE METER 190 mg/dL 70-110 H : TESTED A T [facility] 6720 (BEAKER) (test code = PATRICK Brown [place], 1538) [address]: File Drawer Finisher/Techni adeola ID = [id number] for Lanre Suazo POCT-GLUCOSE [id number] 10:13:27 Test Item Value Reference Range Interpretation Comments POC-GLUCOSE METER 177 mg/dL 70-110 H : TESTED A T [facility] 6720 (BEAKER) (test code = PATRICK Brown [facility], 1538) [address]: File Drawer Finisher/Techni adeola ID = [id number] for Lanre Suazo [id number] 04:01:22 Test Item Value Reference Range Interpretation Comments PHOSPHORUS (BEAKER) (test code = 3.2 mg/dL 2.3-4.7 604) File Drawer Finisher ID - DBBASIC METABOLIC [id number] 04:01:21 Test Item Value Reference Range Interpretation [...] S NOT APPLICABLE FOR DIALYSIS PATIEN TS. File Drawer Finisher ID - IAYBUXGIMSD2907-52-95 04:01:21 Test Item Value Reference Range Interpretation Comments MAGNESIUM (BEAKER) (test code = 1.8 mg/dL 1.6-2.6 627) File Drawer Finisher ID - DBCBC W/PLT COUNT & AUTO UGMJLLHFMXQD6903-84-07 03:40:45 Test Item Value Reference Range Interpretation [...] PERCENT (BEAKER) (test code = 2801) POCT-GLUCOSE [id number] 21:23:17 Test Item Value Reference Range Interpretation Comments POC-GLUCOSE METER 149 mg/dL 70-110 H : TESTED A T [facility] 6720 (BEAKER) (test code = [facility], [facility]8) [address]: File Drawer Finisher/Techni adeola ID = [id number] for Or Aannt ramos POCT-GLUCOSE [id number] 16:28:43 Test Item Value Reference Range Interpretation Comments POC-GLUCOSE METER 178 mg/dL 70-110 H : TESTED A T [facility] 6720 (BEAKER) (test code = [facility], [facility]) [address]: File Drawer Finisher/Techni adeola ID = [id number] for Da vis, Yao POCT-GLUCOSE [id number] 11:51:12 Test Item Value Reference Range Interpretation Comments POC-GLUCOSE METER 242 mg/dL 70-110 H : TESTED A T [facility] 6720 (BEAKER) (test code = [facility], 1538) 7[address]: File Drawer Finisher/Techni adeola ID = [id number] for RA MOS, KRISTI POCT-GLUCOSE [id number] 07:29:20 Test Item Value Reference Range Interpretation Comments POC-GLUCOSE METER 189 mg/dL 70-110 H : TESTED A T [facility] 6720 (BEAKER) (test code = [facility], 1538) 13747: File Drawer Finisher/Techni adeola ID = [id number] for RA MOS, KRISTI [id number] 04:54:20 Test Item Value Reference Range Interpretation Comments PHOSPHORUS (BEAKER) (test code = 2.1 mg/dL 2.3-4.7 L 604) File Drawer Finisher ID - ADMINBASIC METABOLIC [id number] 04:54:19 Test Item Value Reference Range Interpretation [...] S NOT APPLICABLE FOR DIALYSIS PATIEN TS. File Drawer Finisher ID - FQPVFTDNPZMLKT2704-97-57 04:54:19 Test Item Value Reference Range Interpretation Comments MAGNESIUM (BEAKER) (test code = 1.6 mg/dL 1.6-2.6 627) File Drawer Finisher ID - ADMINCBC W/PLT COUNT & AUTO [id number] 04:29:04 Test Item Value Reference Range Interpretation [...] PERCENT (BEAKER) (test code = 2801) POCT-GLUCOSE [id number] 21:16:56 Test Item Value Reference Range Interpretation Comments POC-GLUCOSE METER 182 mg/dL 70-110 H : TESTED A T [facility] 6720 (BEAKER) (test code = [facility], [facility]) [address]: File Drawer Finisher/Techni adeola ID = [id number] for Or richard, Rusella POCT-GLUCOSE [id number] 16:46:30 Test Item Value Reference Range Interpretation Comments POC-GLUCOSE METER 182 mg/dL 70-110 H : TESTED A T [facility] 6720 (BEAKER) (test code = [facility], 1538) 88598: File Drawer Finisher/Techni adeola ID = [id number] for Wa re, Charnita POCT-GLUCOSE [id number] 11:39:19 Test Item Value Reference Range Interpretation Comments POC-GLUCOSE METER 241 mg/dL 70-110 H : TESTED A T [facility] 6720 (BEAKER) (test code = [facility], 1538) 31968: File Drawer Finisher/Techni adeola ID = [id number] for Wa re, Charnita POCT-GLUCOSE [id number] 06:36:57 Test Item Value Reference Range Interpretation Comments POC-GLUCOSE METER 211 mg/dL 70-110 H : TESTED A T [facility] 6720 (BEAKER) (test code = PAT[facility]ICK [place], 1538) [address]: File Drawer Finisher/Techni adeola ID = [id number] for Tomy Arias [id number] 06:33:57 Test Item Value Reference Range Interpretation Comments PHOSPHORUS (BEAKER) (test code = 1.7 mg/dL 2.3-4.7 L 604) File Drawer Finisher ID - AILIN GBASIC METABOLIC [id number] 06:33:56 Test Item Value Reference Range Interpretation [...] S NOT APPLICABLE FOR DIALYSIS PATIEN TS. File Drawer Finisher ID - AILIN [id number] 06:33:56 Test Item Value Reference Range Interpretation Comments MAGNESIUM (BEAKER) (test code = 1.9 mg/dL 1.6-2.6 627) File Drawer Finisher ID - AILIN GCBC W/PLT COUNT & AUTO [id number] 06:06:37 Test Item Value Reference Range Interpretation [...] (BEAKER) (test code = 2801) Vancomycin level, [id number] 00:19:08 Test Item Value Reference Range Interpretation Comments Vancomycin Tr (test code = 13.6 ug/mL 10.0-20.0 4092-3) GUSTAVO (test code = GUSTAVO) File Drawer Finisher ID - DB Lab Interpretation (test Normal code = 97630-3) [facility] Center[facility]AN[facility] LEVEL, [id number] 00:19:08 Test Item Value Reference Range Interpretation Comments VANCOMYCIN TROUGH (ELIDA) (test 13.6 ug/mL 10.0-20.0 code = 522) File Drawer Finisher ID - DBPOCT-GLUCOSE [id number] 23:01:21 Test Item Value Reference Range Interpretation Comments POC-GLUCOSE METER 200 mg/dL 70-110 H : TESTED A T [facility] 6720 ([facility]) (test code = [facility], 1538) 45768: File Drawer Finisher/Techni adeola ID = [id number] for Tomy Arias POCT-GLUCOSE [id number] 18:25:14 Test Item Value Reference Range Interpretation Comments POC-GLUCOSE METER 218 mg/dL 70-110 H : TESTED A T [facility] 6720 ([facility]) (test code = [facility], 1538) 42167: File Drawer Finisher/Techni adeola ID = [id number] for Wi lliams, Areiona POCT-GLUCOSE [id number] 11:30:08 Test Item Value Reference Range Interpretation Comments POC-GLUCOSE METER 203 mg/dL 70-110 H : TESTED A T [facility] 6720 ([facility]) (test code = [facility], 1538) 87431: File Drawer Finisher/Techni adeola ID = [id number] for Wi lliams, Areiona POCT-GLUCOSE [id number] 06:17:10 Test Item Value Reference Range Interpretation Comments POC-GLUCOSE METER 233 mg/dL 70-110 H : Notified RN/MD: ([facility]) (test code = TESTED AT [facility] 6720 1538) [facility], [address]: File Drawer Finisher/Techni adeola ID = [id number] for Logan Doty CBC W/PLT COUNT & AUTO [id number] 05:50:17 Test Item Value Reference Range Interpretation Comments WHITE BLOOD CELL COUNT ([facility]) 14.4 K/ L 3.5-10.5 H (test code = 775) RED BLOOD CELL COUNT ([facility]) 4.08 M/ L 4.63-6.08 L (test code [...] 0-1 PERCENT (BEAKER) (test code = 2801) [id number] 05:31:22 Test Item Value Reference Range Interpretation Comments PHOSPHORUS (BEAKER) (test code = 1.9 mg/dL 2.3-4.7 L 604) File Drawer Finisher ID - LEAH MBASIC METABOLIC [id number] 05:31:21 Test Item Value Reference Range Interpretation [...] S NOT APPLICABLE FOR DIALYSIS PATIEN TS. File Drawer Finisher ID - LEAH [id number] 05:31:21 Test Item Value Reference Range Interpretation Comments MAGNESIUM (BEAKER) (test code = 1.5 mg/dL 1.6-2.6 L 627) File Drawer Finisher ID Jose LYNN MPOCT-GLUCOSE [id number] 00:25:48 Test Item Value Reference Range Interpretation Comments POC-GLUCOSE METER 213 mg/dL 70-110 H : Notified RN/MD: (ELIDA) (test code = TESTED AT [facility] 6720 1538) [facility], [address]: File Drawer Finisher/Techni adeola ID = [id number] for Logan Doty POCT-GLUCOSE [id number] 18:27:24 Test Item Value Reference Range Interpretation Comments POC-GLUCOSE METER 203 mg/dL 70-110 H : TESTED A T [facility] 6720 (ELIDA) ([facility] = [facility], 1538) [address]: File Drawer Finisher/Techni adeola ID = [id number] for Yaya Hightower Manual Yskbdeoxvema7270-19-80 08:45:11 Test Item Value Reference Range Interpretation Comments % Neutros (test code = 84 % 2815) % Lymphs (test code = 6 % 2816) % Monos (test code = 3 % 2817) % Metamyelo (test code 1 % 0-0 H = 2821) % Bands (test code = 6 % 0-10 2825) # Neutros (test code = 15.29 K/ul [...] = 3438) GUSTAVO (test code = GUSTAVO) File Drawer Finisher ID - Sobeida Velázquez comments: Slide comments: Lab Interpretation Abnormal (test code = 39235-2) [facility](CELLAVISION MANUAL DIFF)2021-06-15 08:45:11 Test Item Value Reference [...] CONCENTRATION Adequate (CELLAVISION)(BEAKER) (test code = 3438) File Drawer Finisher ID - Sobeida Velázquez comments: Slide comments:CBC W/PLT COUNT & AUTO [id number] 08:45:05 Test Item Value Reference Range Interpretation [...] WBC 0-0 (BEAKER) (test code = 413) [id number] 06:30:56 Test Item Value Reference Range Interpretation Comments PHOSPHORUS (BEAKER) (test code = 3.5 mg/dL 2.3-4.7 604) File Drawer Finisher ID - LEAH [id number] 06:30:55 Test Item Value Reference Range Interpretation Comments MAGNESIUM (BEAKER) (test code = 1.4 mg/dL 1.6-2.6 L 627) File Drawer Finisher ID - LEAH MBASIC METABOLIC [id number] 06:30:54 Test Item Value Reference Range Interpretation [...] S NOT APPLICABLE FOR DIALYSIS PATIEN TS. File Drawer Finisher ID - LEAH MPOCT-GLUCOSE [id number] 05:37:53 Test Item Value Reference Range Interpretation Comments POC-GLUCOSE METER 281 mg/dL 70-110 H : TESTED A T [facility] 6720 (BEAKER) (test code = [facility] [place], 1538) [address]: File Drawer Finisher/Techni adeola ID = [id number] for HOWARD FLORES POCT-GLUCOSE [id number] 21:50:49 Test Item Value Reference Range Interpretation Comments POC-GLUCOSE METER 225 mg/dL 70-110 H : TESTED A T [facility] 6720 (BEAKER) (test code = PATRICK Brown [facility], 1538) [address]: File Drawer Finisher/Techni adeola ID = [id number] for Rashel Pritchard RAD, ABDOMEN/KUB, 1 VIEW [id number] 21:45:00Reason for exam:->NG tube placementShould this be performed at the bedside?->[facility] : 1965 Sex: [...] the left upper quadrant. Signed: Homero Rai Verified Date/Time: 06/14/2021 21:45:52 Reading Location: [facility] Reading Room POCT- GLUCOSE [id number] 17:47:10 Test Item Value Reference Range Interpretation Comments POC-GLUCOSE METER 179 mg/dL 70-110 H : TESTED A T [facility] 6720 (BEAKER) (test code = [facility] [place], 1538) [address]: File Drawer Finisher/Techni adeola ID = [id number] for AB RAHAM, MARIO Type and screen, [id number] 11:52:00 Test Item Value Reference Range Interpretation Comments ABO/RH AUTOMATED (BEAKER) (test B POSITIVE code = 2260) Ab Scrn (test code = 890-4) NEGATIVE [facility] CenterABORH, [id number] 11:39:00 Test Item Value Reference Range Interpretation Comments ABO Grouping (test code = 2588) B Rh Factor (test code = 2589) POS [facility] CenterBUN and Wbdfgcjbcw2935-13-28 11:30:01 Test Item Value Reference Range Interpretation Comments BUN (test code = 21 mg/dL 7- 3094-0) Creatinine (test 1.06 mg/dL 0.57-1.25 code = 2160-0) BUN/Creatinine 20 For a normal ratio (test code = individua l on a 3097-3) normal diet, th e reference inter yves for the mass ra latosha ranges between 12:1 and 20:1 ( BUN in mg/dL/creatinin e in mg/dL) EGFR (test code = 72 mL/min/1.[place] [address]-9) NOT ACCURATE CREATININE CLEARANCE IN PREDICTING GLOMERULAR FILTRATION RATE . ESTIMATED GFR I S NOT APPLICABLE FOR DIALYSIS PATIEN TSCaitlin GUSTAVO (test code = File Drawer Finisher ID - GUSTAVO) KODY F [facility] CenterBUN AND CREATININE [id number] 11:30:01 Test Item Value Reference Range Interpretation Comments BLOOD UREA NITROGEN 21 mg/dL - (BEAKER) (test code = 354) CREATININE (BEAKER) 1.06 mg/dL 0.57-1.25 (test code = 358) BUN/CREAT RATIO 20 For a normal (BEAKER) (test code individu al on a = 1820289404) normal diet, t he reference inter yves for the mass ra latosha ranges between 12:1 and 20:1 (BUN i n mg/dL/creatinin e in mg/dL) EGFR (BEAKER) (test 72 mL/min/1.73 ESTIMA MARY GFR IS code = 1092) sq m NOT ACCURATE CREATININE CLEARANCE IN PREDICTING GLOMERULAR FILTRATION RATE . ESTIMATED GFR I S NOT APPLICABLE FOR DIALYSIS PATIEN TS. File Drawer Finisher ID - KODY HCqcmjbjbnzjk1102-09-18 11:30:00 Test Item Value Reference Range Interpretation Comments Sodium (test code = 141 meq/L 696-251 3044-2) Potassium (test code = 4.5 meq/L 3.5-5.1 Speci men 2823-3) slightly hemolyzed Chloride (test code = 109 meq/L 98-107 H 2075-0) CO2 (test code = 24 meq/L 22-29 2028-9) GUSTAVO (test code = GUSTAVO) File Drawer Finisher ID - KODY Jeff Lab Interpretation Abnormal (test code = 31439-6) [facility] CenterGlucose2021-11-30 11:30:00 Test Item Value Reference Range Interpretation Comments Glucose (test code = 149 mg/dL 70-105 H 2345-7) GUSTAVO (test code = GUSTAVO) File Drawer Finisher ID - KODY Jeff Lab Interpretation (test Abnormal code = 77848-5) [facility] CenterZdgdowCTBWIAWRZTRU0182-70-70 11:30:00 Test Item Value Reference Range Interpretation Comments SODIUM (BEAKER) (test 141 meq/L 136-145 code = 381) POTASSIUM (BEAKER) 4.5 meq/L 3.5-5.1 Specimen slightly (test code = 379) hemolyzed CHLORIDE (BEAKER) 109 meq/L 98-107 H (test code = 382) CO2 (BEAKER) (test 24 meq/L 22-29 code = 355) File Drawer Finisher ID - KODY [id number] 11:30:00 Test Item Value Reference Range Interpretation Comments GLUCOSE RANDOM (BEAKER) (test code 149 mg/dL 70-105 H = 652) File Drawer Finisher ID - KODY NFsrejpwgfr1348-28-45 11:13:39 Test Item Value Reference Range Interpretation Comments Hemoglobin (test code 13.0 See_Comment L [Auto mated = 786-4) message] The system which generated this result transmit mary reference range : 13.7 - 17.5 GM/ DL. The reference range was not u sed to interpret th is result as normal/abnormal . GUSTAVO (test code = GUSTAVO) File Drawer Finisher ID - Nayely Lab Interpretation Abnormal (test code = 65512-9) [facility] CenterHEMOGLOBIN2021-11-30 11:13:39 Test Item Value Reference Range Interpretation Comments HEMOGLOBIN (BEAKER) (test code = 13.0 GM/DL 13.7-17.5 L 410) File Drawer Finisher ID - [id number] [id number] 12:08:10Surgical Pathology Report Case: [id number] Authorizing Provider: Kelli Correa MD Collected:04/15/2021 04:04 PM Ordering Location: [facility] Received: 04/18/2021 09:45 AM Pathologist: Jadye Chicas MD Specimen: Polyp, Colon - Sigmoid SIGMOID COLON POLYP, BIOPSY: - FRAGMENTS OF TUBULAR ADENOMASJ/pl Signing Pathologist Direct Phone Line: [phone] signed by Jayde Chicas MD on 04/19/2021 at 12:08 PMEndoscopic report reviewed. [id number] t6Hhrrhckzjjfsqut fistulaSigmoid colonReceived in formalin labeled the patient's name, accession number and "sigmoid colon polyp" are 2 omer soft tissue fragments measuring up to 0.3 cm in greatest dimension which are filtered and submitted in toto in A1.CHRISTOPHER Valentin, HT (ASCP)PerformedPOCT-GLUCOSE [id number] 14:30:56 Test Item Value Reference Range Interpretation Comments POC-GLUCOSE METER 125 mg/dL 70-110 H : TESTED A T [facility] 6720 (BEAKER) (test code = KATISIVA Brown [facility], 1538) [id number]: File Drawer Finisher/Techni adeola ID = [id number] for JOSELYN JORDAN SARS-CoV2/RT-PCR (Asymptomatic ONLY)2021-04-14 01:18:28 Test Item Value Reference Range Interpretation Comments SARS-COV2/RT-PCR (test Negative Negative code = 26596-4) GUSTAVO (test code = GUSTAVO) Negative result [...] SARS-CoV-2 assay. Fact Sheet for Healthcare Providers:https://www.zuly leroy/delicia/RT SARS-CoV-2 HCP Fact Sheet 51-782016.pdf Fact Sheet for Healthcare Patients:https://www.marily [place] [employer]o/delicia/RT SARS-CoV-2 Patient Fact Sheet EN 51-630292E3.pdf Lab Interpretation Normal (test code = 50160-6) [facility])2021-04-14 01:18:28 Test Item Value Reference Range Interpretation Comments SARS-COV2/RT-PCR (test code = Negative Negative 0982249) Negative result for this test determines that [...] 564(g) of the Act.Testing was performed using [employer] ([employer]) SARS-CoV-2 assay.Fact Sheet for Healthcare Providers:https://www.TextDigger.sam/delicia/RT SARS-CoV-2 HCP Fact Sheet 51- 985295.pdfFact Sheet for Healthcare Patients:https://www.TextDigger.sam/delicia/RT SARS-CoV-2 Patient Fact Sheet EN 51-817216F6.pdfHEMOGLOBIN [id number] 00:00:00 Test Item Value Reference Range Interpretation Comments A1C (test code = 4548-4) 8.2
[2023-01-22] MEDS ORDERED: KETOROLAC 30 MG/ML INJ ONE (12:27)
[2023-01-22 12:30] LABS: Urine Bacteria None Seen /HPF (<20); Urine Bilirubin NEGATIVE (Negative); Urine Blood Negative (Negative); Urine Clarity Clear (Clear); Urine Color Yellow (Yellow); Urine Glucose NEGATIVE (Negative); Urine Mucus Slight /HPF (None Seen); Urine Protein 1+ (Negative); Urine RBC <5 /HPF (None Seen); Urine Urobilinogen Normal (Normal); Urine pH 5.5 (5.0-7.0)
[2023-01-22 12:34] LABS: Absolute Lymphocytes (CBC) 2.7 K/uL (0.7-4.9); Hematocrit 39.9 % (39.6-49.0); Lymphocytes % 26.6 % (15.3-44.8); MCV 83.9 fL (80-100); MPV 8.2 fL (7.6-11.3); RBC Red Blood Cell Count 4.76 M/uL (4.33-5.43)
[2023-01-22 12:50] LABS: Albumin 3.9 g/dL (3.4-5.0); Bilirubin Total 0.3 mg/dL (0.2-1.0); Potassium 5.1 mEq/L (3.5-5.1); Protein, Total 7.8 g/dL (6.4-8.2)
[2023-01-22] MEDS ORDERED: NA CHLORIDE 0.9% 1,000 ML ONE (13:20)
--- NOTE | 2023-01-22 13:34 | RAD REPORT ---
EXAM DESCRIPTION: CTAbdomen Pelvis W Contrast - 01/22/2023 1:22 pm CLINICAL HISTORY: FLANK PAIN COMPARISON: Abdomen Pelvis W Contrast dated 12/30/2015; CT ABD PELVIS W CONTRAST dated 05/23/2014 TECHNIQUE: CT of the abdomen and pelvis was performed with IV contrast. All CT scans are performed using dose optimization technique as appropriate and may include automated exposure control or mA/KV adjustment according to patient size. FINDINGS: Lower chest: No acute abnormality. Liver: No acute abnormality or suspicious lesions. Biliary: No biliary ductal dilatation. Stomach: No significant focal abnormality. Duodenum: No significant focal abnormality. Pancreas: No significant abnormality. Spleen: No significant abnormality. Adrenal: No suspicious lesions. Kidney/ureter: No hydronephrosis. No renal calculi. Retroperitoneum: No retroperitoneal adenopathy. Vascular: No aneurysm. Bowel: No significant focal abnormality. Partial colectomy. Appendectomy. Peritoneum: No ascites or free air. Bladder: Grossly unremarkable. Reproductive: No adnexal masses. Bones: No acute fracture. Other: n/a IMPRESSION: No acute intra-abdominal or pelvic finding. Partial colectomy and appendectomy. No renal or ureteral calculi.
--- NOTE | 2023-01-22 14:01 | ER ---
Nurse's Notes [facility] Name: Adam Ortez Age: 57 yrs Sex: Male : 1965 Arrival Date: 01/22/2023 Time: 11:08 Bed 19 Private MD: Diagnosis: Dehydration;Acute kidney failure, unspecified Presentation: 01/22 11:42 Chief complaint: Patient states: R FLANK PAIN SINCE SUNDAY, NO DYSURIA. Coronavirus bp screen: At this time, the client does not indicate any symptoms associated with coronavirus-19. Ebola Screen: No symptoms or risks identified at this time. Initial Sepsis Screen: Does the patient meet any 2 criteria? No. Patient's initial sepsis screen is negative. Does the patient have a suspected source of infection? No. Patient's initial sepsis screen is negative. Risk Assessment: Do you want to hurt yourself or someone else? Patient reports no desire to harm self or others. Onset of symptoms is unknown. 11:42 Method Of Arrival: Ambulatory bp 11:42 Acuity: BINTA 3 bp Historical: - Allergies: 11:46 No Known Allergies; bp - PMHx: 11:46 diabetes mellitus; Hypercholesterolemia; Hypertensive disorder; bp - PSHx: 11:46 abdominal; bp - Immunization history:: Adult Immunizations up to date. - Social history:: Smoking status: Patient denies any tobacco usage or history of. Screenin:30 [facility] ED Fall Risk Assessment (Adult) Score/Fall Risk Level 0 - 2 = Low Risk. Abuse eh3 screen: Denies threats or abuse. Denies injuries from another. Nutritional screening: No deficits noted. Tuberculosis screening: No symptoms or risk factors identified. Assessment: 12:19 Reassessment: Patient and/or family updated on plan of care and expected duration. Pain ll1 level reassessed. gait steady to room 19. 12:30 General: Appears in no apparent distress. uncomfortable, Behavior is calm, cooperative, eh3 appropriate for age. Pain: Complains of pain in right lower quadrant Pain radiates to right low back. Neuro: Level of Consciousness is awake, alert, obeys commands, Oriented to person, place, time, situation. Cardiovascular: Capillary refill < 3 seconds Patient's skin is warm and dry. Respiratory: Airway is patent Respiratory effort is even, unlabored, Respiratory pattern is regular, symmetrical. GI: Abdomen is round non-distended. Derm: Skin is intact, is healthy with good turgor. Musculoskeletal: Circulation, motion, and sensation intact. 13:30 Reassessment: Patient appears in no apparent distress at this time. Patient and/or eh3 family updated on plan of care and expected duration. Pain level reassessed. Patient is alert, oriented x 3, equal unlabored respirations, skin warm/dry/pink. Vital Signs: 11:42 BP 126 / 100; Pulse 84; Resp 16; Temp 98.2; Pulse Ox 97% ; Weight 111.13 kg; Height 5 bp ft. 9 in. ; 12:30 BP 123 / 84; Pulse 88; Resp 18; Pulse Ox 95% on R/A; eh3 13:30 BP 135 / 95; Pulse 85; Resp 16; Pulse Ox 95% on R/A; eh3 11:42 Body Mass Index 36.18 (111.13 kg, 175.26 cm) bp ED Course: 11:09 Patient arrived in ED. rg4 11:13 Ynes Snowden PA-C is PHCP. sb4 11:13 Finesse Hartman MD is Attending Physician. sb4 11:45 Triage completed. bp 11:46 Arm band placed on. bp 12:17 Vangie Colunga, RN is Primary Nurse. eh3 12:19 Patient placed in an exam room, on a stretcher. ll1 12:29 Inserted saline lock: 20 gauge in left forearm, using aseptic technique. Blood ds4 collected. 12:30 Patient has correct armband on for positive identification. Bed in low position. Call eh3 light in reach. Side rails up X2. Provided Education on: N/A. Pulse ox on. NIBP on. Door closed. Noise minimized. Warm blanket given. 13:24 CT Abd/Pelvis - IV Contrast Only In Process Unspecified. EDMS 14:00 Anthony Velazco MD is Referral Physician. sb4 14:00 Referral Physician role handed off by Anthony Velazco MD sb4 14:32 No provider procedures requiring assistance completed. IV discontinued, intact, eh3 bleeding controlled, No redness/swelling at site. Pressure dressing applied. Administered Medications: 12:30 Drug: TORadol - Ketorolac IVP 15 mg Route: IVP; Site: left antecubital; eh3 12:55 Follow up: Response: No adverse reaction 3 13:30 Drug: NS 0.9% IV 1000 ml Route: IV; Rate: 1 bolus; Site: left antecubital; 3 14:30 Follow up: IV Status: Completed infusion; IV Intake: 1000ml 3 Medication: 14:32 VIS not applicable for this client. eh3 Intake: 14:30 IV: 1000ml; Total: 1000ml. 3 Outcome: 14:00 Discharge ordered by . sb4 14:32 Discharged to home ambulatory. eh3 14:32 Condition: stable 14:32 Discharge instructions given to patient, Instructed on discharge instructions, follow up and referral plans. medication usage, Demonstrated understanding of instructions, follow-up care, medications, Prescriptions given X 1. 14:32 Patient left the ED. 3 Signatures: Dispatcher [employer] EDMS Mitch Serrano ds4 Stephanie Pratt rg4 Don Moe RN RN bp Lewis, Lynsay, RN RN 1 Vangie Colunga RN RN 3 Ynes Snowden PA-C PAMariya 4
--- NOTE | 2023-01-22 14:01 | EDPHYS ---
Physician Documentation [facility] Name: Adam Ortez Age: 57 yrs Sex: Male : 1965 Arrival Date: 01/22/2023 Time: 11:08 Bed 19 Private MD: ED Physician Finesse Hartman HPI: 01/22 12:23 This 57 yrs old Male presents to ER via Ambulatory with complaints of Flank sb4 Pain. 12:23 The patient complains of pain in the right low back. The pain radiates to the right sb4 lower quadrant. Onset: The symptoms/episode began/occurred 2 day(s) ago. Modifying factors: The symptoms are alleviated by remaining still, the symptoms are aggravated by movement, palpation/percussion. Associated signs and symptoms: Pertinent positives: hematuria, nausea, Pertinent negatives: dysuria, fever, urinary frequency, pain radiating to the lower extremities, vomiting. The patient has not experienced similar symptoms in the past. Historical: - Allergies: 11:46 No Known Allergies; bp - PMHx: 11:46 diabetes mellitus; Hypercholesterolemia; Hypertensive disorder; bp - PSHx: 11:46 abdominal; bp - Immunization history:: Adult Immunizations up to date. - Social history:: Smoking status: Patient denies any tobacco usage or history of. ROS: 12:23 Constitutional: Negative for fever, chills, and weight loss, Eyes: Negative for injury, sb4 pain, redness, and discharge, Cardiovascular: Negative for chest pain, palpitations, and edema, Respiratory: Negative for shortness of breath, cough, wheezing, and pleuritic chest pain, Back: Negative for injury and pain, Skin: Negative for injury, rash, and discoloration, Neuro: Negative for headache, weakness, numbness, tingling, and seizure. 12:23 Abdomen/GI: Positive for nausea, Negative for vomiting, diarrhea, constipation, abdominal cramps. 12:23 : Positive for flank pain, hematuria, Negative for urinary symptoms, urinary frequency, burning with urination, difficulty urinating, bladder incontinence, foul smelling urine, penile discharge, testicular pain 12:23 All other systems are negative. Exam: 12:23 Constitutional: This is a well developed, well nourished patient who is awake, alert, sb4 and in no acute distress. Head/Face: Normocephalic, atraumatic. Eyes: Extra-ocular motions intact. Periorbital areas with no swelling, redness, or edema. Cardiovascular: Regular rate and rhythm with a normal S1 and S2. Respiratory: Lungs have equal breath sounds bilaterally, clear to auscultation and percussion. No rales, rhonchi or wheezes noted. No increased work of breathing, no retractions or nasal flaring. Abdomen/GI: Soft, non-tender, no distension. Skin: Warm, dry with normal turgor. Normal color with no rashes, no lesions, and no evidence of cellulitis. MS/ Extremity: Pulses equal, no cyanosis. Neurovascular intact. Full, normal range of motion. Neuro: Awake and alert, GCS 15, oriented to person, place, time, and situation. Cranial nerves II-XII grossly intact. Motor strength 5/5 in all extremities. Sensory grossly intact. Cerebellar exam normal. Normal gait. 12:23 Back: Exam negative for decreased ROM, deformity, ecchymosis muscle spasm, CVA tenderness, that is mild, is noted on the right. Vital Signs: 11:42 BP 126 / 100; Pulse 84; Resp 16; Temp 98.2; Pulse Ox 97% ; Weight 111.13 kg; Height 5 bp ft. 9 in. ; 12:30 BP 123 / 84; Pulse 88; Resp 18; Pulse Ox 95% on R/A; eh3 13:30 BP 135 / 95; Pulse 85; Resp 16; Pulse Ox 95% on R/A; eh3 11:42 Body Mass Index 36.18 (111.13 kg, 175.26 cm) bp MDM: 11:13 Patient medically screened. sb4 12:25 Differential diagnosis: nephrolithiasis, pyelonephritis, UTI, testicular torsion, sb4 diverticulitis, pancreatitis. 13:59 Data reviewed: vital signs, nurses notes, lab test result(s), radiologic studies, and sb4 as a result, I will discharge patient. I considered the following discharge prescriptions or medication management in the emergency department Pain Medications: At this time, prescription pain medications are not recommended. Care significantly affected by the following chronic conditions: Diabetes, Hypertension. Counseling: I had a detailed discussion with the patient and/or guardian regarding: the historical points, exam findings, and any diagnostic results supporting the discharge/admit diagnosis, lab results, radiology results, the need for outpatient follow up, to repeat BMP in 1-2 weeks, to return to the emergency department if symptoms worsen or persist or if there are any questions or concerns that arise at home. Medication response: Toradol markedly relieved the patient's pain. Special discussion:. 01/22 12:05 Order name: CBC with Diff; Complete Time: 12:39 sb4 01/22 12:05 Order name: CMP; Complete Time: 12:54 sb4 01/22 12:05 Order name: Lipase; Complete Time: 12:54 sb4 01/22 12:05 Order name: Urinalysis w/ reflexes; Complete Time: 12:32 sb4 01/22 12:22 Order name: CT Abd/Pelvis - IV Contrast Only; Complete Time: 13:43 sb4 01/22 12:05 Order name: IV Saline Lock; Complete Time: 12:29 sb4 01/22 12:05 Order name: Labs collected and sent; Complete Time: 12:29 sb4 Administered Medications: 12:30 Drug: TORadol - Ketorolac IVP 15 mg Route: IVP; Site: left antecubital; eh3 12:55 Follow up: Response: No adverse reaction eh3 13:30 Drug: NS 0.9% IV 1000 ml Route: IV; Rate: 1 bolus; Site: left antecubital; eh3 14:30 Follow up: IV Status: Completed infusion; IV Intake: 1000ml eh3 Disposition: 16:05 Co-signature as Attending Physician, Finesse Hartman MD I reviewed the patient's care rn provided by the Advanced Practice Provider and agree with the diagnosis and treatment plan. Disposition Summary: 01/22/23 14:00 Discharge Ordered Location: Home sb4 Problem: an ongoing problem sb4 Symptoms: have improved sb4 Condition: Stable sb4 Diagnosis - Dehydration sb4 - Acute kidney failure, unspecified sb4 Followup: sb4 - With: - When: As needed - Reason: Further diagnostic work-up, Recheck today's complaints, Re-evaluation by your physician Followup: sb4 - With: Private Physician - When: 1 week - Reason: Further diagnostic work-up, Recheck today's complaints, Re-evaluation by your physician Discharge Instructions: - Discharge Summary Sheet sb4 - Acute Kidney Injury, Adult sb4 - Dehydration, Adult, Hvva-ox-Dfwu sb4 Forms: - Medication Reconciliation Form sb4 - Thank You Letter sb4 - Antibiotic Education sb4 - Prescription Opioid Use sb4 - [employer]_Portal_[email or web address].htm sb4 Prescriptions: - Cyclobenzaprine 10 mg Oral Tablet - take 1 tablet by ORAL route every 8 hours As needed; 30 tablet; Refills: 0, sb4 Product Selection Permitted Signatures: Dispatcher [employer] EDFinesse Prather MD MD rn Peltier, Brian, RN RN Vangie Colunga RN RN [facility] Ynes Snowedn, HEVER KATHLEEN sb4
[2023-01-22 16:03] VITALS: TEMP 98.2
[2023-01-22 16:10] VITALS: BP 123/84; O2SAT 95
== END 2023-01-22 14:32 | disposition home or self-care (01) ==
LOC: ER 11:08
DX: E86.0 Dehydration (principal); N17.9 Acute kidney failure, unspecified; R31.9 Hematuria, unspecified; R10.31 Right lower quadrant pain; E11.9 Type 2 diabetes mellitus without complications; I10 Essential (primary) hypertension
CPT/HCPCS: 96361; 85025; 81001; 36415; 83690; 80053; 74177; 96374; 99284; Q9967; J7030